=== PATIENT | male | born 1935 | race Caucasian/White ===

== ENCOUNTER → 2018-02-23 09:05 | Observation (INO) ==
[2018-02-21 16:45] LABS: Basophils % 0.7 % (0.1-2.0); Eosinophils # 0.4 K/mm3 (0.0-0.4); Hematocrit 42.1 % (42.0-52.0); Hemoglobin 13.5 g/dL (14.1-18.0); Lymphocytes # 1.6 K/mm3 (0.7-4.5); Mean Corpuscular Hemoglobin 30.5 pg (27.0-31.2); Mean Corpuscular Volume 95.3 fl (80-94); Mean Platelet Volume 7.2 fl (7.4-10.4); Monocytes # 0.5 K/mm3 (0.1-1.0); Monocytes % 7.8 % (1.7-9.3); Neutrophils # 3.6 K/mm3 (1.8-7.8); Neutrophils % 59.4 % (37.0-80.0); Platelet Count 178 K/mm3 (142-424); Red Blood Count 4.42 M/mm3 (4.60-6.20); Red Cell Distribution Width 13.9 % (11.5-17.5); White Blood Count 6.1 K/mm3 (4.8-10.8)
[2018-02-21 16:52] LABS: Anion Gap 11.8 mEq/L (5-15); Potassium 4.8 mmoL/L (3.5-5.1)
--- NOTE | 2018-02-21 17:56 | History & Physical Report ---
*Admission Date: 02/21/18 *Chief complaint: Cough and congestion *History of present illness: 82-year-old white male, suffers from emphysema, frequent exacerbations and frequent pneumonia, also from systolic and diastolic CHF, came to my office with 3 days of cough and congestion, crackles in both lung croft, very weak, admitted to hospital for IV antibiotics, further diagnostic testing, chest x- ray and IV fluids. [facility] History Medical History: Reports:: Congestive Heart Failure, Coronary Artery Disease, Hyperlipidemia, Hypertension, Myocardial Infarction Other Surgeries: Yes: Appendectomy, Skin Cancer Excision - *Social History Smoking Status: Former smoker Alcohol Intake: never Occupational Status: retired Household Members: spouse - Psychiatric History Expresses thoughts of harming self/others: None Suicide Plan Description: No Plan Review of Systems - Review of Systems Review of systems:: unable to obtain, other, pertinent systems reviewed and negative unless documented below Meds Home Medications Medication Instructions Recorded Confirmed Type aspirin 81 mg tablet,delayed 81 mg PO QDAY 11/26/17 02/21/18 History release atorvastatin 10 mg tablet 10 mg PO HS 11/26/17 02/21/18 History docusate sodium 100 mg capsule 100 mg PO BID 11/26/17 02/21/18 History memantine ER 28 mg-donepezil 10 mg 1 cap PO DAILY 11/26/17 02/21/18 History capsule sprinkle,ext.release 24 hr tamsulosin 0.4 mg capsule 0.4 mg PO QDAY 11/26/17 02/21/18 History warfarin 5 mg tablet 7.5 mg PO DAILY 11/26/17 02/21/18 History Carbidopa/Levodopa 1 tab PO TID 02/21/18 02/21/18 History [Carbidopa/Levodopa 25/100mg Tablet] Famotidine [Pepcid 20mg Tablet] 20 mg PO BID 02/21/18 02/21/18 History Furosemide [Furosemide 20mg Tab] 20 mg PO DAILY 02/21/18 02/21/18 History Insulin Lispro Protamin/Lispro 12 unit SQ AC 02/21/18 02/21/18 History [Humalog Mix 75/25 100 Units/mL 10mL Vial] Insulin Lispro Protamin/Lispro 18 unit SQ AC 02/21/18 02/21/18 History [Humalog Mix 75/25 100 Units/mL 10mL Vial] Mirabegron [Myrbetriq] 25 mg PO DAILY 02/21/18 02/21/18 History Sacubitril/Valsartan [Entresto 49 49 - 51 mg PO BID 02/21/18 02/21/18 History mg-51 mg Tablet] carBAMazepine [carBAMazepine 200mg 600 mg PO HS 02/21/18 02/21/18 History Tablet] lamoTRIgine [Lamotrigine] 100 mg PO BID 02/21/18 02/21/18 History Allergies Allergy/AdvReac Type Severity Reaction Status Date / Time cefazolin [CEFAZOLIN] Allergy Unknown Unverified 11/05/17 14:57 hydrocodone [HYDROCODONE] Allergy Unknown Unverified 11/05/17 14:57 lidocaine [LIDOCAINE] Allergy Unknown Unverified 11/05/17 14:57 Exam Vital signs and Labs for Last 24 Hours: Temp Pulse Resp BP Pulse Ox 97.7 F 74 16 113/60 94 L 02/21/18 16:00 02/21/18 16:00 02/21/18 16:00 02/21/18 16:00 02/21/18 17:01 Laboratory Results - last 24 hr 02/21/18 16:26: WBC 6.1, RBC 4.42 L, Hgb 13.5 L, Hct 42.1, MCV 95.3 H, MCH 30.5 , MCHC 32.0, RDW 13.9, Plt Count 178, MPV 7.2 L, Neut % (Auto) 59.4, Lymph % ( Auto) 26.0, [place] % (Auto) 7.8, Eos % (Auto) 6.0, Baso % (Auto) 0.7, Neut # (Auto ) 3.6, Lymph # (Auto) 1.6, [place] # (Auto) 0.5, Eos # (Auto) 0.4, Baso # (Auto) 0.0 02/21/18 16:26: Sodium 141, Potassium 4.8, Chloride 106, Carbon Dioxide 28, Anion Gap 11.8, BUN 21 H, Creatinine 1.16, Estimated Creat Clear 64, Estimated GFR 61, Est GFR ( Amer) 73, Glucose 97 02/21/18 16:26: Influenza Type A Ag Negative, Influenza Type B Ag Negative I & O for Last 24 hours: Intake & Output 02/19/18 02/20/18 02/21/18 02/22/18 11:59 11:59 11:59 11:59 Output Total 200 / 200 Balance -200 / -200 Weight 195 lb 5 oz Narrative: Patient is alert, somewhat demented. Responds to commands, very pleasant. Crackles in both middle lung croft, worse on the right, some crackles in the right lower field, usually has exam consistent with loose rhonchi. Moving air fairly well. Abdomen soft, minimal ankle edema. Heart rate regular. H&P: Result - Labs Labs: Short CBC 02/21/18 Range/Units 16:26 WBC 6.1 (4.8-10.8) K/mm3 Hgb 13.5 L (14.1-18.0) g/dL Hct 42.1 (42.0-52.0) % Plt Count 178 (142-424) K/mm3 BMP 02/21/18 16:26 Sodium 141 Potassium 4.8 Chloride 106 Carbon Dioxide 28 BUN 21 H Creatinine 1.16 Glucose 97 Assessment and Plan (1) Community acquired pneumonia Current visit: Yes Status: Acute Qualifiers: Laterality: left Category: Medical Code(s): J18.9 - Pneumonia, unspecified organism Multiple comorbidities including dementia, cardiac disease, depression and anxiety issues. Admit to hospital. Antibiotic therapy. Interestingly patient has an allergy to cefazolin but has taken ceftriaxone in the past. We will use this along with macrolide therapy. Chest x-ray pending. Labs today and tomorrow.
[2018-02-22 07:00] LABS: Anion Gap 9.8 mEq/L (5-15); Potassium 4.8 mmoL/L (3.5-5.1)
[2018-02-22 07:04] LABS: Lymphocytes # 1.4 K/mm3 (0.7-4.5); Mean Platelet Volume 7.2 fl (7.4-10.4); Monocytes # 0.5 K/mm3 (0.1-1.0)
[2018-02-22 07:32] LABS: Basophils % 0.7 % (0.1-2.0); Eosinophils # 0.4 K/mm3 (0.0-0.4); Eosinophils % 5.9 % (0.1-12.0); Hematocrit 39.4 % (42.0-52.0); Lymphocytes % 22.9 K/mm3 (10-50); Mean Corpuscular Hemoglobin 30.6 pg (27.0-31.2); Mean Corpuscular Volume 98.6 fl (80-94); Monocytes % 8.4 % (1.7-9.3); Neutrophils # 3.7 K/mm3 (1.8-7.8); Platelet Count 169 K/mm3 (142-424); Red Cell Distribution Width 13.8 % (11.5-17.5); White Blood Count 5.9 K/mm3 (4.8-10.8)
[2018-02-22 07:34] LABS: Hemoglobin 12.2 g/dL (14.1-18.0)
--- NOTE | 2018-02-22 08:31 | Progress Note ---
Internal Medicine - PN: Subj *Date: 02/22/18 *Time: 08:29 Interval history: Patient feels a little better although did not get much sleep last night. Minimal coughing, was able to get some sputum up. Exam Vital signs and Labs for Last 24 Hours: Temp Pulse Resp BP Pulse Ox 97.9 F 89 18 116/58 96 02/22/18 07:40 02/22/18 07:40 02/22/18 07:40 02/22/18 07:40 02/22/18 07:40 Laboratory Results - last 24 hr 02/21/18 16:26: WBC 6.1, RBC 4.42 L, Hgb 13.5 L, Hct 42.1, MCV 95.3 H, MCH 30.5 , MCHC 32.0, RDW 13.9, Plt Count 178, MPV 7.2 L, Neut % (Auto) 59.4, Lymph % ( Auto) 26.0, [place] % (Auto) 7.8, Eos % (Auto) 6.0, Baso % (Auto) 0.7, Neut # (Auto ) 3.6, Lymph # (Auto) 1.6, [place] # (Auto) 0.5, Eos # (Auto) 0.4, Baso # (Auto) 0.0 02/21/18 16:26: Sodium 141, Potassium 4.8, Chloride 106, Carbon Dioxide 28, Anion Gap 11.8, BUN 21 H, Creatinine 1.16, Estimated Creat Clear 64, Estimated GFR 61, Est GFR ( Amer) 73, Glucose 97 02/21/18 16:26: Influenza Type A Ag Negative, Influenza Type B Ag Negative, Mycoplasma pneumon IgM Non-reactive 02/22/18 06:05: WBC 5.9, RBC 4.00 L, Hgb 12.2 L, Hct 39.4 L, MCV 98.6 H, MCH 30.6, MCHC 31.0 L, RDW 13.8, Plt Count 169, MPV 7.2 L, Neut % (Auto) 62.0, Lymph % (Auto) 22.9, [place] % (Auto) 8.4, Eos % (Auto) 5.9, Baso % (Auto) 0.7, Neut # (Auto) 3.7, Lymph # (Auto) 1.4, [place] # (Auto) 0.5, Eos # (Auto) 0.4, Baso # (Auto) 0.0 02/22/18 06:05: Sodium 143, Potassium 4.8, Chloride 109 H, Carbon Dioxide 29, Anion Gap 9.8, BUN 20 H, Creatinine 1.27, Estimated Creat Clear 58, Estimated GFR 55 L, Est GFR ( Amer) 66, Glucose 176 H D I & O for Last 24 hours: Intake & Output 02/19/18 02/20/18 02/21/18 02/22/18 11:59 11:59 11:59 11:59 Intake Total 376 / 376 Output Total 1050 / 1050 Balance -674 / -674 Weight 195 lb 5 oz Microbiology Reports for the Last 24 Hours: Microbiology 02/21/18 18:30 Sputum - Expectorated Sputum Gram Stain - Final Narrative: Patient is alert, pleasant. Lungs are clearer, better air entry. Heart rate regular. Abdomen is soft. Assessment and Plan (1) Community acquired pneumonia Current visit: Yes Status: Acute Qualifiers: Laterality: left Category: Medical Code(s): J18.9 - Pneumonia, unspecified organism - Assessment and plan all Dx Assessment and Plan for all problems:: Overall patient improving, check sputum culture. Continue current therapy.
[2018-02-22 08:56] LABS: INR 2.38 (0.9-1.1); Prothrombin Time 25.9 seconds (9.4-11.8)
--- NOTE | 2018-02-22 10:37 | Pharmacy Consult Notes ---
[facility] Pharmacy VTE Monitoring - Patient Demographics Admission date: 02/21/18 Report Date: 02/22/18 Time: 10:36 Allergies/Adverse Reactions: Patient Allergies cefazolin [CEFAZOLIN] Allergy (Unknown, Verified 02/21/18 18:09) hydrocodone [HYDROCODONE] Allergy (Unknown, Verified 02/21/18 18:09) lidocaine [LIDOCAINE] Allergy (Unknown, Verified 02/21/18 18:09) Height: 1.8 m Weight: 88.592 kg Patient Problems: Current Active Problems Community acquired pneumonia (Acute) - VTE Risk Labs: VTE Related Lab Results Hgb 12.2 g/dL (14.1-18.0) L 02/22/18 06:05 Hct 39.4 % (42.0-52.0) L 02/22/18 06:05 Plt Count 169 K/mm3 (142-424) 02/22/18 06:05 PT 25.9 seconds (9.4-11.8) H 02/22/18 08:40 INR 2.38 (0.9-1.1) H 02/22/18 08:40 BUN 20 mg/dL (7-18) H 02/22/18 06:05 Creatinine 1.27 mg/dL (0.70-1.30) 02/22/18 06:05 Estimated Creat Clear 58 mL/min (0-300) 02/22/18 06:05 Was VTE Risk Assessment Performed: Yes - Prophylaxis VTE Prophylaxis Ordered?: Yes Types of VTE Prophylaxis: TEDS Knee High Location of Applied Device: Bilateral Lower Extremeties Pharmacologic Type: Warfarin (INR=2.38)
--- NOTE | 2018-02-23 08:12 | Discharge Summary ---
General - General Admission date: 02/21/18 Discharge date: 02/23/18 HPI HPI: 82-year-old white male, suffers from emphysema, frequent exacerbations and frequent pneumonia, also from systolic and diastolic CHF, came to my office with 3 days of cough and congestion, crackles in both lung croft, very weak, admitted to hospital for IV antibiotics, further diagnostic testing, chest x- ray and IV fluids. Hospital Course Hospital Course: Patient was admitted, placed on antibiotics for community-acquired pneumonia, chest x-ray showed infiltrate in the right chest. He improved very nicely in a stepwise fashion. Unfortunately was unable to cough up any sputum. This morning he was doing well, felt much better, was dressed this morning on morning rounds, eating a good breakfast. Exam has improved as noted below. He will be discharged home to finish up antibiotics and to follow-up in my office as scheduled. Objective Vital signs: Temp Pulse Resp BP Pulse Ox 98.5 F 98 H 18 101/78 97 02/23/18 07:36 02/23/18 07:36 02/23/18 07:36 02/23/18 07:36 02/23/18 07:36 Narrative: Patient's alert, talkative, little disoriented about the date today but otherwise much better. Appears well-hydrated, lungs are much clearer, only minimal rhonchi in the right middle and lower lung field, heart rate regular. Previously noted murmur unchanged, trace ankle edema at his baseline. Results Labs on day of discharge: Labs from last 24 hours 02/22/18 02/22/18 02/22/18 20:07 16:29 11:54 PT INR POC Glucose 270 H 207 H 202 H 02/22/18 08:40 PT 25.9 H INR 2.38 H POC Glucose Preliminary micro results at discharge 02/21/18 18:30 Sputum Culture - Preliminary Sputum - Expectorated Sputum 02/21/18 16:26 Blood Culture - Preliminary Blood NO GROWTH AFTER 24 HOURS 02/21/18 16:26 Blood Culture - Preliminary Blood NO GROWTH AFTER 24 HOURS DS: Diagnosis - Discharge Diagnosis (1) Community acquired pneumonia Status: Acute Discharge Plan - Patient Discharge Instructions ACTIVITY: Continue current activity DIET: continue same diet Patient Instructions: Coumadin Vitamin K/ Diet, Coumadin Therapy Booklet - Follow up Plan Follow up with: Tremaine Gómez MD [Primary Care Provider] - 02/28/18 11:00 am Disposition: Home, Self-Correction Medications: Home Medications Medication Instructions Recorded Confirmed Type aspirin 81 mg tablet,delayed 81 mg PO DAILY 11/26/17 02/22/18 History release atorvastatin 10 mg tablet 10 mg PO HS 11/26/17 02/21/18 History memantine ER 28 mg-donepezil 10 mg 1 cap PO DAILY 11/26/17 02/21/18 History capsule sprinkle,ext.release 24 hr tamsulosin 0.4 mg capsule 0.4 mg PO HS 11/26/17 02/22/18 History warfarin 5 mg tablet 7.5 mg PO SUTUWETHSA 11/26/17 02/22/18 History Carbidopa/Levodopa 1 tab PO TID 02/21/18 02/21/18 History [Carbidopa/Levodopa 25/100mg Tablet] Famotidine [Pepcid 20mg Tablet] 20 mg PO BID 02/21/18 02/21/18 History Furosemide [Furosemide 20mg Tab] 20 mg PO DAILY 02/21/18 02/21/18 History Insulin Lispro Protamin/Lispro 12 unit SQ DIRECTED 02/21/18 02/22/18 History [Humalog Mix 75/25 100 Units/mL 10mL Vial] Insulin Lispro Protamin/Lispro 18 unit SQ DIRECTED 02/21/18 02/22/18 History [Humalog Mix 75/25 100 Units/mL 10mL Vial] Mirabegron [Myrbetriq] 25 mg PO DAILY 02/21/18 02/21/18 History Sacubitril/Valsartan [Entresto 49 49 - 51 mg PO BID 02/21/18 02/21/18 History mg-51 mg Tablet] carBAMazepine [carBAMazepine 200mg 600 mg PO HS 02/21/18 02/21/18 History Tablet] lamoTRIgine [Lamotrigine] 100 mg PO BID 02/21/18 02/21/18 History Sennosides/Docusate Sodium 2 tab PO HS 02/22/18 02/22/18 History [Sennosides-Docusate Sodium Tab] Warfarin Sodium 10 mg PO MOFR 02/22/18 02/22/18 History Prescriptions/Medication Reconciliation: New Cefdinir [Omnicef 300mg Capsule] 300 mg PO BID #14 cap Continue aspirin 81 mg tablet,delayed release 81 mg PO DAILY atorvastatin 10 mg tablet 10 mg PO HS warfarin 5 mg tablet 7.5 mg PO SUTUWETHSA memantine ER 28 mg-donepezil 10 mg capsule sprinkle,ext.release 24 hr 1 cap PO DAILY tamsulosin 0.4 mg capsule 0.4 mg PO HS Insulin Lispro Protamin/Lispro [Humalog Mix 75/25 100 Units/mL 10mL Vial] 12 unit SQ DIRECTED Insulin Lispro Protamin/Lispro [Humalog Mix 75/25 100 Units/mL 10mL Vial] 18 unit SQ DIRECTED carBAMazepine [carBAMazepine 200mg Tablet] 600 mg PO HS Furosemide [Furosemide 20mg Tab] 20 mg PO DAILY Famotidine [Pepcid 20mg Tablet] 20 mg PO BID Carbidopa/Levodopa [Carbidopa/Levodopa 25/100mg Tablet] 1 tab PO TID Warfarin Sodium 10 mg PO MOFR Sennosides/Docusate Sodium [Sennosides-Docusate Sodium Tab] 2 tab PO HS Sacubitril/Valsartan [Entresto 49 mg-51 mg Tablet] 49 - 51 mg PO BID lamoTRIgine [Lamotrigine] 100 mg PO BID Mirabegron [Myrbetriq] 25 mg PO DAILY
== END | disposition home or self-care (01) ==
LOC: 2ND
PROVIDERS: ADMIT Internal Medicine Adolescent Medicine; ATTEND Internal Medicine Adolescent Medicine

== ENCOUNTER 2018-04-08 12:51 | Outpatient (RCR) | payer MEDICARE, BC, SELFPAY ==
--- NOTE | 2018-04-08 14:33 | HMH.PTOPEV ---
PT Outpatient Evaluation Rehab PT Outpatient Evaluation Start: 04/08/18 12:56 Freq: Status: Active Protocol: Document 04/08/18 14:19 ROXANNE (Rec: 04/08/18 14:31 PHORNE [id number]) Electronically Signed By Eriberto Ballesteros, PT 04/08/18 14:19 Outpatient Therapy Subjective History Subjective History Pt presents with c/o fatigue with any exertion, especially walking x ~ 1-2 mos. He states , I get tired just trying to walk up my driveway and I have to stop and sit down. Pt is ~ 1 mo S/P recent hospital admission due to CAP. He also report having a hx of chronic low back pain intermittently. He denies numbness or tingling currently and reports only 1 fall over the past 6 mos. He has PMH of CHF, CAD, [place], pacemaker, Emphysema, Parkinson's disease, dementia, and DM-II. Chief Complaint Pain Symptom Type Ache Symptoms Relieved By Rest/Positioning Symptoms Aggravated By Walking Prior Functional Limitations Reaching Lifting Housework Recreation Activity Walking Balance Current Functional Limitations Reaching Lifting Housework Recreation Activity Walking Balance Symptom Description Constant but Variable Level of pain today (0-10) 0 Balance Eval Hx of Falls Hx Falls Yes Number in last 6 months 1 Timed Up and Go Test 1. Is the Timed Up and Go test result > yes or = to 12 seconds? [place] Feet Together/Eyes open/Stable Surface fail Feet Together/Eyes Closed/Stable Surface fail Feet Together/Eyes open/Unstable Surface fail Feet Together/Eyes Closed/Unstable fail Surface Outpatient Therapy Assessment Impairments Problems/Impairmments Impaired Endurance Impaired Walking Impaired Self Care/Self Management Prognosis Rehab Potential Fair Clinical Impression Consistent with Dec endurance, mult co- morbidities
== END 2018-04-08 12:52 | disposition home or self-care (01) ==
LOC: PT 12:51
PROVIDERS: Family Provider Internal Medicine Adolescent Medicine; PCP Internal Medicine Adolescent Medicine; Visit Provider Internal Medicine Adolescent Medicine
DX: G20 Parkinson's disease (principal); R26.9 Unspecified abnormalities of gait and mobility
CPT/HCPCS: 97163

== ENCOUNTER 2018-09-10 15:07 | Observation (INO) ==
[2018-09-10 16:01] LABS: Basophils % 0.6 % (0.1-2.0); Eosinophils # 0.2 K/mm3 (0.0-0.4); Eosinophils % 3.2 % (0.1-12.0); Hematocrit 44.3 % (42.0-52.0); Hemoglobin 13.7 g/dL (14.1-18.0); Lymphocytes # 1.8 K/mm3 (0.7-4.5); Lymphocytes % 27.8 K/mm3 (10-50); Mean Corpuscular HGB Conc 30.8 g/dL (31.8-35.4); Mean Corpuscular Hemoglobin 30.2 pg (27.0-31.2); Mean Corpuscular Volume 97.8 fl (80-94); Mean Platelet Volume 7.2 fl (7.4-10.4); Monocytes # 0.5 K/mm3 (0.1-1.0); Monocytes % 7.9 % (1.7-9.3); Neutrophils # 3.9 K/mm3 (1.8-7.8); Neutrophils % 60.5 % (37.0-80.0); Platelet Count 175 K/mm3 (142-424); Red Blood Count 4.53 M/mm3 (4.60-6.20); Red Cell Distribution Width 14.5 % (11.5-17.5); White Blood Count 6.4 K/mm3 (4.8-10.8)
[2018-09-10 16:15] LABS: Prothrombin Time 42.8 seconds (9.4-11.8)
[2018-09-10 16:16] LABS: Alanine Aminotransferase 8 U/L (12-78); Albumin/Globulin Ratio 0.7 (1.1-1.8); Alkaline Phosphatase 99 U/L (46-116); Anion Gap 10.9 mEq/L (5-15); Aspartate Amino Transferase 13 U/L (15-37); Bilirubin,Total 0.3 mg/dL (0.2-1.0); Blood Urea Nitrogen 26 mg/dL (7-18); Calcium 8.6 mg/dL (8.5-10.1); Carbon Dioxide 31 mmol/L (21.0-32.0); Chloride 108 mmol/L (98-107); Globulin 4.1 gm/dl (1.3-3.2); Glucose 109 mg/dL (74-106); Potassium 4.9 mmoL/L (3.5-5.1); Sodium 145 mmol/L (136-145); Total Protein,Serum 7.1 gm/dL (6.4-8.2)
[2018-09-10 16:20] LABS: INR 4.34 (0.9-1.1)
--- NOTE | 2018-09-11 07:51 | History & Physical Report ---
*Admission Date: 09/10/18 *Chief complaint: Weakness/cellulitis right leg *History of present illness: 83-year-old white male with significant past history of CHF, coronary disease, dementia, paroxysmal atrial fibrillation and recurrent pneumonias who presented to my office with his with a chief complaint of status confusion, right leg swelling and pain and worsening ambulatory status. In the office he was found to be afflicted with crackles in both lower lung croft, cellulitis in the right leg, admitted to hospital for further diagnostic testing, the institution of antibiotics and evaluation for further therapies. [facility] History I have reviewed the patient's past medical history: Yes Medical History: Reports:: Congestive Heart Failure, Coronary Artery Disease, Diabetes Mellitus Type 2, Hyperlipidemia, Hypertension, Myocardial Infarction Denies:: Cancer Other Surgeries: Yes: Appendectomy, Cholecystectomy, Skin Cancer Excision - *Social History Educational Level: Completed Grade School Smoking Status: Former smoker Alcohol Intake: never Occupational Status: retired Household Members: spouse - Psychiatric History Expresses thoughts of harming self/others: None Suicide Plan Description: No Plan Review of Systems - Review of Systems Review of systems:: pertinent systems reviewed and negative unless documented below - Constitutional Reports fatigue, Reports lack of energy, Denies anorexia, Denies fever(s) - Eyes Denies blurry vision, Denies change in vision - ENT Reports poor balance, Reports dizziness, Denies difficulty swallowing - *Cardiovascular Denies chest pain, Denies chest pain at rest, Denies shortness of breath - *Respiratory Denies change in phlegm color, Denies chest congestion - *Gastrointestinal Denies abdominal pain, Denies coffee ground vomit - *Genitourinary Denies difficulty urinating - *Musculoskeletal Reports abnormal walking, Reports joint swelling Meds Home Medications Medication Instructions Recorded Confirmed Type aspirin 81 mg tablet,delayed 81 mg PO DAILY 11/26/17 09/10/18 History release atorvastatin 10 mg tablet 40 mg PO HS 11/26/17 09/10/18 History warfarin 5 mg tablet 7.5 mg PO SUTUWETHSA 11/26/17 09/10/18 History Carbidopa/Levodopa 1 tab PO TID 02/21/18 09/10/18 History [Carbidopa/Levodopa 25/100mg Tablet] Famotidine [Pepcid 20mg Tablet] 20 mg PO BID 02/21/18 09/10/18 History Furosemide [Furosemide 20mg Tab] 20 mg PO DAILY 02/21/18 09/10/18 History Insulin Lispro Protamin/Lispro 12 unit SQ DIRECTED 02/21/18 09/10/18 History [Humalog Mix 75/25 100 Units/mL 10mL Vial] Insulin Lispro Protamin/Lispro 15 unit SQ HS 02/21/18 09/10/18 History [Humalog Mix 75/25 100 Units/mL 10mL Vial] Sacubitril/Valsartan [Entresto 49 49 - 51 mg PO BID 02/21/18 09/10/18 History mg-51 mg Tablet] carBAMazepine [carBAMazepine 200mg 600 mg PO HS 02/21/18 09/10/18 History Tablet] lamoTRIgine [Lamotrigine] 100 mg PO BID 02/21/18 09/10/18 History Sennosides/Docusate Sodium 2 tab PO HS 02/22/18 09/10/18 History [Sennosides-Docusate Sodium Tab] Warfarin Sodium 10 mg PO MOFR 02/22/18 09/10/18 History Glimepiride [Amaryl 2mg tablet] 2 mg PO DAILY 09/10/18 09/10/18 History Ipratropium/Albuterol Sulfate 3 ml IH Q6HP PRN 09/10/18 09/10/18 History [Duoneb 3mL neb] Memantine HCl/Donepezil HCl 1 each PO DAILY 09/10/18 09/10/18 History [Namzaric 28 mg-10 mg Capsule] Sennosides [Senna Lax] 8.6 mg PO HS 09/10/18 09/10/18 History Allergies Allergy/AdvReac Type Severity Reaction Status Date / Time cefazolin [CEFAZOLIN] Allergy Unknown Verified 06/17/18 09:09 hydrocodone [HYDROCODONE] Allergy Unknown Verified 06/17/18 09:09 lidocaine [LIDOCAINE] Allergy Unknown Verified 06/17/18 09:09 Exam Vital signs and Labs for Last 24 Hours: Temp Pulse Resp BP Pulse Ox 97.7 F 69 14 119/77 93 L 09/11/18 04:00 09/11/18 07:08 09/11/18 04:00 09/11/18 04:00 09/11/18 07:08 Laboratory Results - last 24 hr 09/10/18 15:45: WBC 6.4, RBC 4.53 L, Hgb 13.7 L, Hct 44.3, MCV 97.8 H, MCH 30.2, MCHC 30.8 L, RDW 14.5, Plt Count 175, MPV 7.2 L, Neut % (Auto) 60.5, Lymph % (Auto) 27.8, [place] % (Auto) 7.9, Eos % (Auto) 3.2, Baso % (Auto) 0.6, Neut # (Auto) 3.9, Lymph # (Auto) 1.8, [place] # (Auto) 0.5, Eos # (Auto) 0.2, Baso # (Auto) 0.0 09/10/18 15:45: PT 42.8 H, INR 4.34 H 09/10/18 15:45: Sodium 145, Potassium 4.9, Chloride 108 H, Carbon Dioxide 31, Anion Gap 10.9, BUN 26 H, Creatinine 1.43 H, Estimated GFR 47 L, Est GFR ( Amer) 57 L, Glucose 109 H, Calcium 8.6, Magnesium 2.2, Total Bilirubin 0.3, AST 13 L, ALT 8 L, Alkaline Phosphatase 99, Total Protein 7.1, Albumin 3.0 L, Globulin 4.1 H, Albumin/Globulin Ratio 0.7 L 09/10/18 15:45: Troponin I < 0.02 I & O for Last 24 hours: Intake & Output 09/08/18 09/09/18 09/10/18 09/11/18 11:59 11:59 11:59 11:59 Output Total 650 / 650 Balance -650 / -650 Weight 195 lb 5.273 oz Narrative: In the office patient was found to be slightly confused, especially to place and time. Oropharynx dry but otherwise clear, no JVD. Lungs had crackles and rhonchi in both lower lung croft about [address] Heart rate irregular. Previously noted flow murmur. Abdomen soft and nontender. Left leg fairly normal, with diminished pulses as previously. Right leg with cellulitis and a significant 5 cm bullae on right sosa surrounded by cellulitis/erysipelas area. Apparently he had struck this leg against a piece of furniture a couple of days ago. Able to bear weight but is very weak, ataxic. Assessment and Plan (1) Cellulitis, leg Current visit: Yes Status: Acute Category: Medical Code(s): L03.119 - Cellulitis of unspecified part of limb Admit to hospital. Elevation, topical mupirocin will be started. IV antibiotics. (2) Ataxia Current visit: Yes Status: Acute Category: Medical Code(s): R27.0 - Ataxia, unspecified Check labs, rehydration gently and PT evaluation (3) Community acquired pneumonia Current visit: No Status: Acute Qualifiers: Laterality: left Category: Medical Code(s): J18.9 - Pneumonia, unspecified organism Check chest x-ray, community acquired pneumonia protocol.
[2018-09-11 10:38] LABS: INR 2.46 (0.9-1.1); Prothrombin Time 24.7 seconds (9.4-11.8)
[2018-09-12 07:26] LABS: Basophils % 0.5 % (0.1-2.0); Eosinophils # 0.3 K/mm3 (0.0-0.4); Eosinophils % 3.6 % (0.1-12.0); Hematocrit 40.2 % (42.0-52.0); Hemoglobin 12.8 g/dL (14.1-18.0); Lymphocytes # 2.2 K/mm3 (0.7-4.5); Lymphocytes % 30.3 K/mm3 (10-50); Mean Corpuscular HGB Conc 31.7 g/dL (31.8-35.4); Mean Corpuscular Volume 97.8 fl (80-94); Mean Platelet Volume 6.9 fl (7.4-10.4); Monocytes # 0.5 K/mm3 (0.1-1.0); Monocytes % 6.9 % (1.7-9.3); Neutrophils # 4.3 K/mm3 (1.8-7.8); Neutrophils % 58.8 % (37.0-80.0); Platelet Count 150 K/mm3 (142-424); Red Blood Count 4.12 M/mm3 (4.60-6.20); Red Cell Distribution Width 14.5 % (11.5-17.5); White Blood Count 7.3 K/mm3 (4.8-10.8)
[2018-09-12 07:29] LABS: INR 1.91 (0.9-1.1); Prothrombin Time 19.3 seconds (9.4-11.8)
[2018-09-12 07:45] LABS: Albumin Level 2.9 gm/dL (3.4-5.0); Albumin/Globulin Ratio 0.7 (1.1-1.8); Anion Gap 10.2 mEq/L (5-15); Bilirubin,Total 0.5 mg/dL (0.2-1.0); Calcium 8.9 mg/dL (8.5-10.1); Globulin 3.9 gm/dl (1.3-3.2); Potassium 5.2 mmoL/L (3.5-5.1); Total Protein,Serum 6.8 gm/dL (6.4-8.2)
--- NOTE | 2018-09-12 07:58 | Discharge Summary ---
General - General Admission date:: 09/10/18 Discharge date: 09/12/18 HPI HPI: 83-year-old white male with significant past history of CHF, coronary disease, dementia, paroxysmal atrial fibrillation and recurrent pneumonias who presented to my office with his with a chief complaint of status confusion, right leg swelling and pain and worsening ambulatory status. In the office he was found to be afflicted with crackles in both lower lung croft, cellulitis in the right leg, admitted to hospital for further diagnostic testing, the institution of antibiotics and evaluation for further therapies. Hospital Course Hospital Course: Admitted for medical management of community-acquired pneumonia and lower extremity cellulitis. Interval improvement after starting IV antibiotics. Transition to oral antibiotics. Tolerated oral intake. Hemodynamically stable on room air. Afebrile. Transition to p.o. antibiotics to complete full course of treatment. Follow-up in clinic as scheduled Objective Vital signs: Temp Pulse Resp BP Pulse Ox 98.0 F 76 14 114/91 H 95 09/12/18 04:00 09/12/18 06:13 09/12/18 04:00 09/12/18 04:00 09/12/18 06:13 - *Routine HEENT Exam Head: Present: normocephalic, atraumatic Eye: Present: EOMI, PERRL ENT: Present: mucous membranes moist - *Routine Neck Exam Present: supple. Absent: JVD - *Routine Respiratory Exam Present: prolonged expiratory phase, crackles. Absent: accessory muscle use, wheezes - *Routine Cardiovascular Exam Present: RRR, Normal S1, Normal S2 - *Routine Abdominal Exam Present: soft, normoactive bowel sounds - *Routine Rectal Exam Patient deferred: visual exam - *Routine Exam Patient deferred: penile exam - *Routine Extremities Exam Present: edema. Absent: cyanosis Comments: Interval improvement in lower extremity erythema - *Routine Skin Exam Present: intact, erythema, lesions. Absent: cyanosis - *Routine Neurological Exam Present: alert, oriented X3, CN II-XII intact Results Labs on day of discharge: Labs from last 24 hours 09/12/18 09/12/18 09/12/18 06:58 06:58 06:58 WBC 7.3 RBC 4.12 L Hgb 12.8 L Hct 40.2 L MCV 97.8 H MCH 31.0 MCHC 31.7 L RDW 14.5 Plt Count 150 MPV 6.9 L Neut % (Auto) 58.8 Lymph % (Auto) 30.3 [place] % (Auto) 6.9 Eos % (Auto) 3.6 Baso % (Auto) 0.5 Neut # (Auto) 4.3 Lymph # (Auto) 2.2 [place] # (Auto) 0.5 Eos # (Auto) 0.3 Baso # (Auto) 0.0 PT 19.3 H INR 1.91 H Sodium 139 Potassium 5.2 H Chloride 106 Carbon Dioxide 28 Anion Gap 10.2 BUN 27 H Creatinine 1.25 Estimated Creat Clear 58 Estimated GFR 55 L Est GFR ( Amer) 67 Glucose 195 H Calcium 8.9 Total Bilirubin 0.5 AST 11 L ALT 9 L Alkaline Phosphatase 89 Total Protein 6.8 Albumin 2.9 L Globulin 3.9 H Albumin/Globulin Ratio 0.7 L 09/11/18 10:13 WBC RBC Hgb Hct MCV MCH MCHC RDW Plt Count MPV Neut % (Auto) Lymph % (Auto) [place] % (Auto) Eos % (Auto) Baso % (Auto) Neut # (Auto) Lymph # (Auto) [place] # (Auto) Eos # (Auto) Baso # (Auto) PT 24.7 H INR 2.46 H Sodium Potassium Chloride Carbon Dioxide Anion Gap BUN Creatinine Estimated Creat Clear Estimated GFR Est GFR ( Amer) Glucose Calcium Total Bilirubin AST ALT Alkaline Phosphatase Total Protein Albumin Globulin Albumin/Globulin Ratio DS: Diagnosis - Discharge Diagnosis (1) Cellulitis, leg Status: Acute (2) Ataxia Status: Acute (3) Community acquired pneumonia Status: Acute Discharge Plan - Patient Discharge Instructions Patient Instructions: Cellulitis, Coumadin Vitamin K/ Diet, Coumadin Therapy Booklet - Follow up Plan Follow up with: Tremaine Gómez MD [Primary Care Provider] - 1 week Disposition: Home, Self-Half-Way Medications: Home Medications Medication Instructions Recorded Confirmed Type aspirin 81 mg tablet,delayed 81 mg PO DAILY 11/26/17 09/10/18 History release warfarin 5 mg tablet 7.5 mg PO SUTUWETHSA 11/26/17 09/10/18 History Carbidopa/Levodopa 1 tab PO TID 02/21/18 09/10/18 History [Carbidopa/Levodopa 25/100mg Tablet] Famotidine [Pepcid 20mg Tablet] 20 mg PO BID 02/21/18 09/10/18 History Furosemide [Furosemide 20mg Tab] 20 mg PO DAILY 02/21/18 09/10/18 History Insulin Lispro Protamin/Lispro 12 unit SQ DAILY 02/21/18 09/11/18 History [Humalog Mix 75/25 100 Units/mL 10mL Vial] Insulin Lispro Protamin/Lispro 15 unit SQ HS 02/21/18 09/10/18 History [Humalog Mix 75/25 100 Units/mL 10mL Vial] Sacubitril/Valsartan [Entresto 49 1 each PO BID 02/21/18 09/11/18 History mg-51 mg Tablet] carBAMazepine [carBAMazepine 200mg 600 mg PO HS 02/21/18 09/10/18 History Tablet] lamoTRIgine [Lamotrigine] 100 mg PO BID 02/21/18 09/10/18 History Sennosides/Docusate Sodium 2 tab PO HS 02/22/18 09/10/18 History [Sennosides-Docusate Sodium Tab] Warfarin Sodium 10 mg PO MOFR 02/22/18 09/10/18 History Glimepiride [Amaryl 2mg tablet] 2 mg PO DAILY 09/10/18 09/10/18 History Ipratropium/Albuterol Sulfate 3 ml IH Q6HP PRN 09/10/18 09/10/18 History [Duoneb 3mL neb] Memantine HCl/Donepezil HCl 1 each PO DAILY 09/10/18 09/10/18 History [Namzaric 28 mg-10 mg Capsule] Sennosides [Senna Lax] 17.2 mg PO HS 09/10/18 09/11/18 History Atorvastatin Calcium [Atorvastatin 40 mg PO HS 09/11/18 09/11/18 History 40mg Tab] Prescriptions/Medication Reconciliation: New Mupirocin [Bactroban 2% Ointment 22gm tube] 1 applic TP TID 10 Days #1 tube Continue aspirin 81 mg tablet,delayed release 81 mg PO DAILY warfarin 5 mg tablet 7.5 mg PO SUTUWETHSA Insulin Lispro Protamin/Lispro [Humalog Mix 75/25 100 Units/mL 10mL Vial] 12 unit SQ DAILY Insulin Lispro Protamin/Lispro [Humalog Mix 75/25 100 Units/mL 10mL Vial] 15 unit SQ HS carBAMazepine [carBAMazepine 200mg Tablet] 600 mg PO HS Furosemide [Furosemide 20mg Tab] 20 mg PO DAILY Famotidine [Pepcid 20mg Tablet] 20 mg PO BID Carbidopa/Levodopa [Carbidopa/Levodopa 25/100mg Tablet] 1 tab PO TID Warfarin Sodium 10 mg PO MOFR Sennosides/Docusate Sodium [Sennosides-Docusate Sodium Tab] 2 tab PO HS Sennosides [Senna Lax] 17.2 mg PO HS Memantine HCl/Donepezil HCl [Namzaric 28 mg-10 mg Capsule] 1 each PO DAILY Glimepiride [Amaryl 2mg tablet] 2 mg PO DAILY Ipratropium/Albuterol Sulfate [Duoneb 3mL neb] 3 ml IH Q6HP PRN PRN Reason: copd Sacubitril/Valsartan [Entresto 49 mg-51 mg Tablet] 1 each PO BID lamoTRIgine [Lamotrigine] 100 mg PO BID Atorvastatin Calcium [Atorvastatin 40mg Tab] 40 mg PO HS
== END 2018-09-12 12:25 | disposition home or self-care (01) ==
LOC: 2ND
PROVIDERS: ADMIT Internal Medicine Adolescent Medicine; ATTEND Internal Medicine Adolescent Medicine

== ENCOUNTER 2018-11-06 11:39 | Inpatient (IN) ==
--- NOTE | 2018-11-06 12:02 | Emergency Department Note ---
ED Disposition Clinical Impression: Pneumonia, Dehydration, Hypoxia, Hypotension Disposition: Admitted as Observation Condition on Discharge: Fair Time of Disposition: 19:40 - Critical Care Critical Care Time: No Attestation: On 11/06/18, the high probability of a clinically significant, sudden or life threatening deterioration of the following system(s) required my full and direct attention, intervention and personal management. The time I documented below is in addition to time spent performing reported procedures but includes the following listed in this critical care notation. Medical Decision Making - Medical Records Medical records reviewed: Yes: I reviewed the patient's medical records. - Obie Inquiry Pt receiving controlled substance: No Obie was queried for this patient: No Vital Signs: 11/06/18 11:49 11/06/18 11:58 11/06/18 12:15 Temperature 97.9 F Temperature Source Oral Pulse Rate 90 Pulse Rate [Right Brachial] 82 82 Respiratory Rate 25 H 26 H Blood Pressure [Right Arm] 124/78 76/49 L Blood Pressure Mean [Right Arm] 93 58 Blood Pressure Source [Right Arm] Automatic Cuff Automatic Cuff Blood Pressure Position [Right Arm] Sitting Sitting 02 Sat by Pulse Oximetry 92 L 90 L Oxygen Delivery Method Room Air Room Air Oxygen Flow Rate (LPM) 11/06/18 12:30 11/06/18 13:03 11/06/18 14:00 Temperature Temperature Source Pulse Rate Pulse Rate [Right Brachial] 73 85 96 H Respiratory Rate 20 24 Blood Pressure [Right Arm] 96/45 L 89/49 L 90/50 L Blood Pressure Mean [Right Arm] 62 62 63 Blood Pressure Source [Right Arm] Automatic Cuff Automatic Cuff Automatic Cuff Blood Pressure Position [Right Arm] Sitting Sitting Sitting 02 Sat by Pulse Oximetry 97 97 98 Oxygen Delivery Method Aerosol Mask Nasal Cannula Oxygen Flow Rate (LPM) 2 11/06/18 15:24 Temperature Temperature Source Pulse Rate Pulse Rate [Right Brachial] 94 H Respiratory Rate Blood Pressure [Right Arm] 93/52 L Blood Pressure Mean [Right Arm] 65 Blood Pressure Source [Right Arm] Automatic Cuff Blood Pressure Position [Right Arm] Sitting 02 Sat by Pulse Oximetry 98 Oxygen Delivery Method Oxygen Flow Rate (LPM) - Lab Data Lab results reviewed: Yes: I reviewed the patient's lab results. Lab Results 11/06/18 12:00: WBC 10.2, RBC 3.91 L, Hgb 12.2 L, Hct 38.7 L, MCV 99.0 H, MCH 31.1, MCHC 31.4 L, RDW 14.2, Plt Count 170, MPV 7.7, Neut % (Auto) 73.5, Lymph % (Auto) 17.6, [place] % (Auto) 7.4, Eos % (Auto) 1.2, Baso % (Auto) 0.3, Neut # (A uto) 7.5, Lymph # (Auto) 1.8, [place] # (Auto) 0.8, Eos # (Auto) 0.1, Baso # (Auto) 0.0 11/06/18 12:00: PT 36.5 H, INR 3.68 H 11/06/18 12:00: Sodium 140, Potassium 4.4, Chloride 105, Carbon Dioxide 27, Anion Gap 12.4, BUN 41 H, Creatinine 1.82 H, Estimated Creat Clear 40, Estimated GFR 36 L, Est GFR ( Amer) 43 L, Glucose 152 H, Calcium 8.6, Total Bilirubin 0.5, AST 8 L, ALT 6 L, Alkaline Phosphatase 76, Total Protein 7.1, Albumin 2.8 L, Globulin 4.3 H, Albumin/Globulin Ratio 0.7 L 11/06/18 12:00: Lactate 1.3 11/06/18 12:00: B-Natriuretic Peptide 705 H 11/06/18 12:00: Total Creatine Kinase 79, CK-MB (CK-2) 1.3, CK-MB (CK-2) Rel Index 1.6, Troponin I < 0.02 11/06/18 12:08: Influenza Type A Ag Negative, Influenza Type B Ag Negative Result diagrams: 11/07/18 05:57 11/07/18 05:57 Orders (Tests/Meds): ED MEDICATIONS Generic Name Dose Route Start Last Admin Trade Name Freq PRN Reason Stop Dose Admin Acetaminophen 650 mg 11/06/18 17:23 Acetaminophen 325mg Tab PO 12/06/18 17:22 Q4HP PRN As Needed for Fever or Pain Acetylcysteine 2 ml 11/06/18 21:00 11/07/18 06:35 Mucomyst 20% 4ml Vial INHALATION 11/09/18 20:59 Not Given TID CARLOS Albuterol/Ipratropium 3 ml 11/07/18 12:00 Duoneb 3ml Neb IH 12/07/18 11:59 Q6HP PRN Shortness Of Breath Docusate Sodium 100 mg 11/07/18 09:00 11/07/18 09:33 Docusate Sodium 100mg Cap PO 12/07/18 08:59 100 mg DAILY CARLOS Administration Levofloxacin/Dextrose 500 mg in 100 mls @ 100 mls/hr 11/07/18 11:00 11/07/18 11:02 Levaquin 500mg/100ml Premix IV 11/21/18 10:59 100 mls/hr Q24H CARLOS Administration Protocol Pt's Own Med 81 mg 11/07/18 09:00 11/07/18 09:31 Aspirin Ec 81 Mg PO 12/07/18 08:59 81 mg DAILY CARLOS Administration Pt's Own Med 40 mg 11/06/18 21:00 11/06/18 20:19 Atorvastatin Calcium PO 12/06/18 20:59 40 mg 40mg Tab HS CARLOS Administration Pt's Own Med 600 mg 11/06/18 21:00 11/06/18 20:21 Carbamazepine 200mg PO 12/06/18 20:59 600 mg Tablet HS CARLOS Administration Pt's Own Med 1 tab 11/06/18 21:00 11/07/18 12:46 Carbidopa/Levodopa PO 12/06/18 20:59 1 tab 25/100mg Tablet TID CARLOS Administration Pt's Own Med 20 mg 11/06/18 21:00 11/07/18 09:32 Famotidine [Pepcid] PO 12/06/18 20:59 20 mg 20 Mg BID CARLOS Administration Pt's Own Med 20 mg 11/07/18 09:00 11/07/18 09:32 Furosemide 20 Mg Tab PO 12/07/18 08:59 20 mg BID CARLOS Administration Pt's Own Med 2 mg 11/07/18 09:00 11/07/18 09:34 Glimepiride [Amaryl] PO 12/07/18 08:59 2 mg 2mg Tablet DAILY CARLOS Administration Pt's Own Med 100 mg 11/06/18 21:00 11/07/18 09:34 Lamotrigine 100 Mg PO 12/06/18 20:59 100 mg Tab BID CARLOS Administration Pt's Own Med 1 each 11/06/18 21:00 11/07/18 09:33 Sacubitril/Valsartan PO 12/06/18 20:59 1 each [Entresto] 49 Mg-51 BID CARLOS Administration Mg Tablet Pt's Own Med 10 mg 11/07/18 11:00 Warfarin Sodium 5 Mg PO 12/07/18 10:59 Tab MoFr@1100 [facility] Pt's Own Med 1 each 11/07/18 09:00 11/07/18 09:32 Memantine Hcl/ PO 12/07/18 08:59 1 each Donepezil Hcl [ DAILY CARLOS Administration Namzaric] 28 Mg-10 Mg Capsule Pt's Own Med 7.5 mg 11/07/18 08:39 Warfarin Sodium [ PO 12/06/18 17:22 Coumadin] 5 Mg [id number]@1100 [facility] Pt's Own Med 0 mg 11/07/18 08:45 Sennosides [Senna- PO 12/06/18 20:59 Lax] Tab HS [facility] Pt's Own Med 12 unit 11/07/18 09:00 Insulin Lispro SQ 12/07/18 08:59 Protamin/Lispro [ 0715 [facility] Humalog Mix] 75/25 Pt's Own Med 18 unit 11/07/18 08:51 Insulin Lispro SQ 12/06/18 20:59 Protamin/Lispro [ 1645 [facility] Humalog Mix] 75/25 Pt's Own Med 2 each 11/07/18 09:00 11/07/18 09:33 Escitalopram 5 Mg PO 12/07/18 08:59 2 each DAILY CARLOS Administration Ondansetron HCl 4 mg 11/06/18 17:23 Zofran 4mg/2ml Vial IV 12/06/18 17:22 Q8HP PRN Nausea Sodium Chloride 3 ml 11/06/18 17:23 Sodium Chloride 3% 15ml Neb IH 12/06/18 11:54 ONCE PRN INDUCE SPUTUM COLLECTION Discontinued Medications Generic Name Dose Route Start Last Admin Trade Name Freq PRN Reason Stop Dose Admin Acetylcysteine 2 ml 11/06/18 15:31 11/06/18 23:17 Mucomyst 20% 4ml Vial INHALATION 11/06/18 15:32 Not Given ONCE ONE Albuterol/Ipratropium 3 ml 11/06/18 11:57 11/06/18 11:58 Duoneb 3ml Neb 11/06/18 11:58 3 ml ONCE ONE Administration Albuterol/Ipratropium 3 ml 11/06/18 15:32 11/06/18 23:17 Duoneb 3ml Neb 11/06/18 15:33 Not Given ONCE ONE Albuterol/Ipratropium 3 ml 11/06/18 17:23 11/06/18 19:55 Duoneb 3ml Neb 11/06/18 17:24 3 ml ONCE ONE Administration Dexamethasone Sodium Phosphate 10 mg 11/06/18 12:25 11/06/18 12:29 Decadron 4mg/Ml 1ml Vial IV 11/06/18 12:26 10 mg ONCE ONE Administration Levofloxacin/Dextrose 750 mg in 150 mls @ 100 mls/hr 11/06/18 12:30 11/06/18 12:29 Levofloxacin 750mg/150ml Premix IV 11/06/18 13:59 100 mls/hr ONCE ONE Administration Protocol Lactated Ringer's 1,000 mls @ 999 mls/hr 11/06/18 12:45 11/06/18 12:15 Lactated Ringer's 1000 Ml Bag IV 11/06/18 13:45 999 mls/hr .Q1H1M CARLOS Administration Lactated Ringer's 2,680 mls @ 1,340 mls/hr 11/06/18 12:38 11/06/18 12:15 Lactated Ringer's 1000 Ml Bag 30 ml/kg infuse over 2 hr (2680 ml) 11/06/18 14:37 1,340 mls/hr IV Administration .Q2H ONE Insulin Human Lispro 10 unit 11/06/18 22:30 11/06/18 22:05 Humalog 100 Units/Ml 3ml Vial (Ssi) SQ 11/06/18 22:31 10 unit ONCE ONE Administration Non-Formulary Medication 81 mg 11/07/18 09:00 Aspirin [Low Dose Aspirin Ec] PO 12/07/18 08:59 DAILY CARLOS Non-Formulary Medication 40 mg 11/06/18 21:00 Atorvastatin Calcium [Atorvastatin 40mg Tab] PO 12/06/18 20:59 HS CARLOS Non-Formulary Medication 600 mg 11/06/18 21:00 Carbamazepine [Carbamazepine 200mg Tablet] PO 12/06/18 20:59 HS CARLOS Non-Formulary Medication 1 tab 11/06/18 21:00 Carbidopa/Levodopa [Carbidopa/Levodopa 25/100mg Tablet] PO 12/06/18 20:59 TID CARLOS Non-Formulary Medication 20 mg 11/06/18 21:00 Famotidine [Pepcid 20mg Tablet] PO 12/06/18 20:59 BID CARLOS Non-Formulary Medication 20 mg 11/07/18 09:00 Furosemide [Furosemide 20mg Tab] PO 12/07/18 08:59 DAILY CARLOS Non-Formulary Medication 2 mg 11/07/18 09:00 Glimepiride [Amaryl 2mg Tablet] PO 12/07/18 08:59 DAILY CARLOS Non-Formulary Medication 12 unit 11/07/18 09:00 Insulin Lispro Protamin/Lispro [Humalog Mix 75/25 100 Units/Ml 10ml Vial] SQ 12/07/18 08:59 DAILY CARLOS Non-Formulary Medication 15 unit 11/06/18 21:00 Insulin Lispro Protamin/Lispro [Humalog Mix 75/25 100 Units/Ml 10ml Vial] SQ 12/06/18 20:59 HS CARLOS Non-Formulary Medication 3 ml 11/06/18 15:32 Ipratropium/Albuterol Sulfate [Duoneb 3ml Neb] Q6HP PRN copd Non-Formulary Medication 100 mg 11/06/18 21:00 Lamotrigine [Lamotrigine] PO 12/06/18 20:59 BID CARLOS Non-Formulary Medication 1 each 11/07/18 09:00 Memantine Hcl/Donepezil Hcl [Namzaric 28 Mg-10 Mg Capsule] PO 12/07/18 08:59 DAILY CARLOS Non-Formulary Medication 17.2 mg 11/06/18 21:00 Sennosides [Senna Lax] PO 12/06/18 20:59 HS CARLOS Non-Formulary Medication 2 tab 11/06/18 21:00 Sennosides/Docusate Sodium [Sennosides-Docusate Sodium Tab] PO 12/06/18 20:59 HS CARLOS Non-Formulary Medication 7.5 mg 11/06/18 15:45 11/06/18 23:17 Warfarin Sodium [Coumadin 5mg Tablet] PO 12/06/18 15:44 Not Given SUTUWETHSA CARLOS Non-Formulary Medication 10 mg 11/07/18 15:32 Warfarin Sodium [Warfarin Sodium] PO 12/07/18 15:31 MOFR CARLOS Non-Formulary Medication 1 each 11/06/18 21:00 Sacubitril/Valsartan [Entresto 49 Mg-51 Mg Tablet] PO 12/06/18 20:59 BID CARLOS Non-Formulary Medication 12 unit 11/07/18 09:00 11/07/18 07:07 Insulin Lispro Protamin/Lispro [Humalog Mix 75/25 100 Units/Ml 10ml Vial] SQ 12/07/18 08:59 12 unit DAILY CARLOS Administration Non-Formulary Medication 15 unit 11/06/18 21:00 11/06/18 22:05 Insulin Lispro Protamin/Lispro [Humalog Mix 75/25 100 Units/Ml 10ml Vial] SQ 12/06/18 20:59 Not Given HS CARLOS Non-Formulary Medication 3 ml 11/06/18 17:23 11/07/18 06:35 Ipratropium/Albuterol Sulfate [Duoneb 3ml Neb] IH 3 ml Q6HP PRN Administration copd Non-Formulary Medication 17.2 mg 11/06/18 21:00 11/06/18 20:43 Sennosides [Senna Lax] PO 12/06/18 20:59 Not Given HS CARLOS Non-Formulary Medication 2 tab 11/06/18 21:00 11/06/18 20:26 Sennosides/Docusate Sodium [Sennosides-Docusate Sodium Tab] PO 12/06/18 20:59 2 tab HS CARLOS Administration Non-Formulary Medication 7.5 mg 11/06/18 17:23 11/06/18 17:40 Warfarin Sodium [Coumadin 5mg Tablet] PO 12/06/18 15:44 Not Given SUTUWETHSA CARLOS Sodium Chloride 3 ml 11/06/18 11:55 Sodium Chloride 3% 15ml Neb IH 12/06/18 11:54 ONCE PRN INDUCE SPUTUM COLLECTION ORDERS Category Date Time Status Blood Culture Stat Micro 11/06/18 12:00 Received Sputum Culture & Gram Stain Stat Micro 11/06/18 12:05 Ordered - Radiology Data #1 Image(s): Chest Image Reviewed: Yes I reviewed the patient's radiology results, Yes I have reviewed radiologist's interpretation Patient has a left lower lobe pneumonia with fluid in the right minor fissure bronchiectasis with bronchiectasis FINDINGS: Prior median sternotomy with valve replacement. Pacemaker device is present. There are chronic changes noted. There is increased density in both lower lobes consistent with superimposed bilateral lower lobe pneumonia. No acute bony anomalies. IMPRESSION: Bilateral lower lobe pneumonia Dictated By: Kar Lira MD Signed By: <Electronically signed by Kar Lira MD in [place]> Medical Decision Narrative: Patient presents with probable bilateral pneumonia borderline hypoxia dehydration possible sepsis with hypotension FINDINGS: Prior median sternotomy with valve replacement. Pacemaker device is present. There are chronic changes noted. There is increased density in both lower lobes consistent with superimposed bilateral lower lobe pneumonia. No acute bony anomalies. IMPRESSION: Bilateral lower lobe pneumonia Dictated By: Kar Lira MD Signed By: <Electronically signed by Kar Lira MD in [place]> 11/06/18 1459 Patient improved with multiple duo nebs with Pulmicort IV steroids and suctioning with improvement in his oxygenation and activity informed patient of the lab results and the left lower lobe pneumonia and need for admission Attempts at calling Dr Mcfarland ll covering for Dr. Chappell were eventually returned by his nurse practitioner Chanel patient admitted to stepdown telemetry for pneumonia hypoxia and transient hypotension dehydration DD/ [id number] General Adult HPI - General Chief complaint: Shortness of Breath/Dyspnea Stated complaint: soa, cough Time Seen by Provider: 11/06/18 11:50 Mode of Arrival: Wheelchair Source of Information: Patient, Spouse Limitations: No Limitations Description of Symptoms (Recalled from ER Triage Doc. by RN): pt presents with tightness,soa, and wheezing. has already been seen by pcp. - History of Present Illness HPI narrative: 83-year-old male complaining of several days of shortness of breath and cough according to his getting progressively more short of breath and getting weaker he is a non-smoker Exacerbating factors: movement - Related Data Home Medications Medication Instructions Recorded Confirmed aspirin 81 mg tablet,delayed 81 mg PO DAILY 11/26/17 11/06/18 release warfarin 5 mg tablet 7.5 mg PO SUTUWETHSA 11/26/17 11/06/18 RX: Carbidopa/Levodopa 1 tab PO TID 02/21/18 11/06/18 [Carbidopa/Levodopa 25/100mg Tablet] RX: Famotidine [Pepcid 20mg Tablet] 20 mg PO BID 02/21/18 11/06/18 RX: Furosemide [Furosemide 20mg 20 mg PO BID 02/21/18 11/07/18 Tab] RX: Insulin Lispro Protamin/Lispro 12 unit SQ 0730 02/21/18 11/07/18 [Humalog Mix 75/25 100 Units/mL 10mL Vial] RX: Insulin Lispro Protamin/Lispro 18 unit SQ 1700 02/21/18 11/07/18 [Humalog Mix 75/25 100 Units/mL 10mL Vial] RX: Sacubitril/Valsartan [Entresto 1 each PO BID 02/21/18 11/06/18 49 mg-51 mg Tablet] RX: carBAMazepine [carBAMazepine 600 mg PO HS 02/21/18 11/06/18 200mg Tablet] RX: lamoTRIgine [Lamotrigine] 100 mg PO BID 02/21/18 11/06/18 RX: Warfarin Sodium 10 mg PO MOFR 02/22/18 11/06/18 RX: Glimepiride [Amaryl 2mg tablet] 2 mg PO DAILY 09/10/18 11/06/18 RX: Ipratropium/Albuterol Sulfate 3 ml IH Q6HP PRN 09/10/18 11/06/18 [Duoneb 3mL neb] RX: Memantine HCl/Donepezil HCl 1 each PO DAILY 09/10/18 11/06/18 [Namzaric 28 mg-10 mg Capsule] RX: Sennosides [Senna Lax] 2 tab PO HS 09/10/18 11/07/18 RX: Atorvastatin Calcium 40 mg PO HS 09/11/18 11/06/18 [Atorvastatin 40mg Tab] Escitalopram Oxalate 10 mg PO DAILY 11/07/18 11/07/18 Allergies Allergy/AdvReac Type Severity Reaction Status Date / Time cefazolin [CEFAZOLIN] Allergy Unknown Verified 06/17/18 09:09 hydrocodone [HYDROCODONE] Allergy Unknown Verified 06/17/18 09:09 lidocaine [LIDOCAINE] Allergy Unknown Verified 06/17/18 09:09 [facility] History - Hepatitis A Screen Drug use history?: No High risk sexual behaviors?: No History of sexually transmitted infection?: No Currently employed?: No Childcare worker?: No Do you have indoor plumbing?: Yes Do you have electricity?: Yes Attestation statement:: This patient has been screened for Hepatitis A risk factors. I have reviewed the patient's past medical history: Yes Medical History: Reports:: Congestive Heart Failure, Coronary Artery Disease, Diabetes Mellitus Type 2, Hyperlipidemia, Hypertension, Myocardial Infarction Denies:: Cancer Other Surgeries: Yes: Appendectomy, Cholecystectomy, Skin Cancer Excision - Social History Educational Level: Completed High School Smoking Status: Former smoker Tobacco Type: cigarettes Alcohol Intake: never Occupational Status: retired Household Members: spouse - Psychiatric History Expresses thoughts of harming self/others: None Suicide Plan Description: No Plan ROS Obtained: Yes All systems reviewed & no additional complaints - Constitutional Constitutional: Reports as per HPI, Reports fatigue, Reports malaise - Cardiovascular Cardiovascular: Reports system reviewed and no additional complaints, except as docu - Respiratory Respiratory: Yes chest congestion, Yes cough, Yes dyspnea on exertion Physical Exam - General General appearance: alert, in distress (Short of breath tachypneic and weak) - Head Head exam: atraumatic, normocephalic, normal inspection - Eye Eye exam: Present: normal appearance, PERRL, EOMI - ENT ENT exam: Present: normal exam, normal oropharynx, mucous membranes moist, TM's normal bilaterally, normal external ear exam - Neck Neck exam: Present: normal inspection, full ROM, trachea midline. Absent: meningismus, lymphadenopathy - Chest Chest inspection: Present: normal inspection, symmetric chest wall rise. Absent: tenderness - Respiratory Respiratory exam: Present: respiratory distress, accessory muscle use (Bilateral rhonchi coarse cough with poor ability to bring up sputum) - Cardiovascular Cardiovascular exam: Present: regular rate, normal rhythm. Absent: JVD - Abdominal Exam Abdominal exam: Present: soft, normal bowel sounds. Absent: distention, tenderness, guarding - Extremities Exam Extremities exam: Present: normal inspection, full ROM, normal capillary refill. Absent: calf tenderness - Back Exam Back exam: Present: normal inspection. Absent: tenderness - Neurological Exam Neurological exam: Present: alert, oriented X3 - Psychiatric Psychiatric exam: Present: normal affect, normal mood - Skin Skin exam: Present: warm, dry, intact, normal color - Lymphatic Lymphatic Findings: no adenopathy
[2018-11-06 12:15] LABS: Basophils % 0.3 % (0.1-2.0); Eosinophils # 0.1 K/mm3 (0.0-0.4); Eosinophils % 1.2 % (0.1-12.0); Hematocrit 38.7 % (42.0-52.0); Hemoglobin 12.2 g/dL (14.1-18.0); Lymphocytes # 1.8 K/mm3 (0.7-4.5); Lymphocytes % 17.6 % (10-50); Mean Corpuscular HGB Conc 31.4 g/dL (31.8-35.4); Mean Corpuscular Hemoglobin 31.1 pg (27.0-31.2); Mean Platelet Volume 7.7 fl (7.4-10.4); Monocytes # 0.8 K/mm3 (0.1-1.0); Monocytes % 7.4 % (1.7-9.3); Neutrophils # 7.5 K/mm3 (1.8-7.8); Neutrophils % 73.5 % (37.0-80.0); Platelet Count 170 K/mm3 (142-424); Red Blood Count 3.91 M/mm3 (4.60-6.20); Red Cell Distribution Width 14.2 % (11.5-17.5); White Blood Count 10.2 K/mm3 (4.8-10.8)
[2018-11-06 12:34] LABS: Albumin Level 2.8 gm/dL (3.4-5.0); Albumin/Globulin Ratio 0.7 (1.1-1.8); Anion Gap 12.4 mEq/L (5-15); Bilirubin,Total 0.5 mg/dL (0.2-1.0); Calcium 8.6 mg/dL (8.5-10.1); Globulin 4.3 gm/dl (1.3-3.2); Potassium 4.4 mmoL/L (3.5-5.1); Total Protein,Serum 7.1 gm/dL (6.4-8.2)
[2018-11-06 12:44] LABS: INR 3.68 (0.9-1.1); Prothrombin Time 36.5 seconds (9.4-11.8)
[2018-11-06 12:45] LABS: Creatine Kinase 79 U/L (39-308)
[2018-11-07 06:12] LABS: Eosinophils # 0.1 K/mm3 (0.0-0.4); Monocytes # 0.6 K/mm3 (0.1-1.0); Neutrophils % 71.2 % (37.0-80.0)
[2018-11-07 06:22] LABS: Basophils % 0.2 % (0.1-2.0); Eosinophils % 0.8 % (0.1-12.0); Hematocrit 34.2 % (42.0-52.0); Lymphocytes # 1.5 K/mm3 (0.7-4.5); Lymphocytes % 19.4 % (10-50); Mean Corpuscular HGB Conc 31.1 g/dL (31.8-35.4); Mean Corpuscular Hemoglobin 30.7 pg (27.0-31.2); Mean Corpuscular Volume 98.8 fl (80-94); Mean Platelet Volume 7.3 fl (7.4-10.4); Monocytes % 8.3 % (1.7-9.3); Neutrophils # 5.3 K/mm3 (1.8-7.8); Platelet Count 158 K/mm3 (142-424); Red Blood Count 3.46 M/mm3 (4.60-6.20); Red Cell Distribution Width 14.3 % (11.5-17.5); White Blood Count 7.5 K/mm3 (4.8-10.8)
[2018-11-07 06:23] LABS: Anion Gap 10.2 mEq/L (5-15); Calcium 8.5 mg/dL (8.5-10.1); Potassium 4.2 mmoL/L (3.5-5.1)
[2018-11-07 06:24] LABS: INR 3.27 (0.9-1.1); Prothrombin Time 32.5 seconds (9.4-11.8)
[2018-11-07 06:26] LABS: Hemoglobin 10.6 g/dL (14.1-18.0)
--- NOTE | 2018-11-07 07:29 | Pharmacy Consult Notes ---
[facility] Pharmacy VTE Monitoring - Patient Demographics Admission date: 11/06/18 Report Date: 11/07/18 Time: 07:29 Allergies/Adverse Reactions: Patient Allergies cefazolin [CEFAZOLIN] Allergy (Unknown, Verified 06/17/18 09:09) hydrocodone [HYDROCODONE] Allergy (Unknown, Verified 06/17/18 09:09) lidocaine [LIDOCAINE] Allergy (Unknown, Verified 06/17/18 09:09) Height: 1.8 m Weight: 89.556 kg Patient Problems: Current Active Problems Pneumonia (Acute) Dehydration (Acute) Hypoxia (Acute) Hypotension (Acute) - VTE Risk Labs: VTE Related Lab Results Hgb 10.6 g/dL (14.1-18.0) L D 11/07/18 05:57 Hct 34.2 % (42.0-52.0) L 11/07/18 05:57 Plt Count 158 K/mm3 (142-424) 11/07/18 05:57 PT 32.5 seconds (9.4-11.8) H 11/07/18 05:57 INR 3.27 (0.9-1.1) H 11/07/18 05:57 BUN 37 mg/dL (7-18) H 11/07/18 05:57 Creatinine 1.45 mg/dL (0.70-1.30) H D 11/07/18 05:57 Estimated Creat Clear 51 mL/min (50-200) 11/07/18 05:57 VTE Score: 5 VTE Risk Level: Low Risk - Prophylaxis VTE Prophylaxis Ordered?: Yes Types of VTE Prophylaxis: Pharmacological Pharmacologic Type: Warfarin - VTE Diagnosis Confirmed Treatment or plan recommended: Continue Current Treatment
--- NOTE | 2018-11-07 08:15 | History & Physical Report ---
*Admission Date: 11/06/18 *Chief complaint: Cough/congestion *History of present illness: 83-year-old white male with significant cardiac history of coronary atherosclerosis, significant history of recurrent pneumonias, significant dementia history with bipolar disease complicates all aspects of his care. He was brought to the emergency department by his because of lethargy, cough and congestion, found to have left lower lobe infiltrate, acute kidney injury and was admitted to hospital for IV antibiotics. This morning he states that he is already feeling some better and ate a good breakfast. [facility] History I have reviewed the patient's past medical history: Yes Medical History: Reports:: Cancer (SKIN CANCER), Congestive Heart Failure (EF less than 35%, ischemic cardiomyopathy), Coronary Artery Disease, Diabetes Mellitus Type 2, Hyperlipidemia, Hypertension, Myocardial Infarction Denies:: MRSA Other Surgeries: Yes: Appendectomy, Cholecystectomy, Skin Cancer Excision Amputation: No Fractures: No - *Social History Educational Level: Attended Grade School Smoking Status: Former smoker Tobacco Type: cigarettes Alcohol Intake: never Occupational Status: retired Housing: house Household Members: spouse - Psychiatric History Expresses thoughts of harming self/others: None Suicide Plan Description: No Plan Review of Systems - Review of Systems Review of systems:: pertinent systems reviewed and negative unless documented below - Constitutional Reports anorexia, Reports chills, Reports fatigue, Reports fever(s), Reports night sweats, Denies body ache(s) - Eyes Denies blind spots, Denies blurry vision - ENT Denies abnormal hearing, Denies bleeding gums - *Cardiovascular Reports chest pain, Reports shortness of breath, Reports shortness of breath with activity, Reports irregular heart rhythm, Reports leg swelling - *Respiratory Reports change in phlegm color, Reports chest congestion - *Gastrointestinal Denies abdominal pain - *Genitourinary Denies difficulty urinating - *Musculoskeletal Denies abnormal walking, Denies joint pain - *Neurologic Reports abnormal walking, Denies abnormal hearing - Endocrine Reports excessive sweating Meds Home Medications Medication Instructions Recorded Confirmed Type aspirin 81 mg tablet,delayed 81 mg PO DAILY 11/26/17 11/06/18 History release warfarin 5 mg tablet 7.5 mg PO SUTUWETHSA 11/26/17 11/06/18 History Carbidopa/Levodopa 1 tab PO TID 02/21/18 11/06/18 History [Carbidopa/Levodopa 25/100mg Tablet] Famotidine [Pepcid 20mg Tablet] 20 mg PO BID 02/21/18 11/06/18 History Furosemide [Furosemide 20mg Tab] 20 mg PO DAILY 02/21/18 11/06/18 History Insulin Lispro Protamin/Lispro 12 unit SQ DAILY 02/21/18 11/06/18 History [Humalog Mix 75/25 100 Units/mL 10mL Vial] Insulin Lispro Protamin/Lispro 15 unit SQ HS 02/21/18 11/06/18 History [Humalog Mix 75/25 100 Units/mL 10mL Vial] Sacubitril/Valsartan [Entresto 49 1 each PO BID 02/21/18 11/06/18 History mg-51 mg Tablet] carBAMazepine [carBAMazepine 200mg 600 mg PO HS 02/21/18 11/06/18 History Tablet] lamoTRIgine [Lamotrigine] 100 mg PO BID 02/21/18 11/06/18 History Sennosides/Docusate Sodium 2 tab PO HS 02/22/18 11/06/18 History [Sennosides-Docusate Sodium Tab] Warfarin Sodium 10 mg PO MOFR 02/22/18 11/06/18 History Glimepiride [Amaryl 2mg tablet] 2 mg PO DAILY 09/10/18 11/06/18 History Ipratropium/Albuterol Sulfate 3 ml IH Q6HP PRN 09/10/18 11/06/18 History [Duoneb 3mL neb] Memantine HCl/Donepezil HCl 1 each PO DAILY 09/10/18 11/06/18 History [Namzaric 28 mg-10 mg Capsule] Sennosides [Senna Lax] 17.2 mg PO HS 09/10/18 11/06/18 History Atorvastatin Calcium [Atorvastatin 40 mg PO HS 09/11/18 11/06/18 History 40mg Tab] Allergies Allergy/AdvReac Type Severity Reaction Status Date / Time cefazolin [CEFAZOLIN] Allergy Unknown Verified 06/17/18 09:09 hydrocodone [HYDROCODONE] Allergy Unknown Verified 06/17/18 09:09 lidocaine [LIDOCAINE] Allergy Unknown Verified 06/17/18 09:09 Exam Vital signs and Labs for Last 24 Hours: Temp Pulse Resp BP Pulse Ox 97.7 F 71 19 125/58 L 98 11/07/18 04:00 11/07/18 07:03 11/07/18 04:00 11/07/18 04:00 11/07/18 07:03 Laboratory Results - last 24 hr 11/06/18 12:00: WBC 10.2, RBC 3.91 L, Hgb 12.2 L, Hct 38.7 L, MCV 99.0 H, MCH 31.1, MCHC 31.4 L, RDW 14.2, Plt Count 170, MPV 7.7, Neut % (Auto) 73.5, Lymph % (Auto) 17.6, [place] % (Auto) 7.4, Eos % (Auto) 1.2, Baso % (Auto) 0.3, Neut # (Auto) 7.5, Lymph # (Auto) 1.8, [place] # (Auto) 0.8, Eos # (Auto) 0.1, Baso # (Auto) 0.0 11/06/18 12:00: PT 36.5 H, INR 3.68 H 11/06/18 12:00: Sodium 140, Potassium 4.4, Chloride 105, Carbon Dioxide 27, Anion Gap 12.4, BUN 41 H, Creatinine 1.82 H, Estimated Creat Clear 40, Estimated GFR 36 L, Est GFR ( Amer) 43 L, Glucose 152 H, Calcium 8.6, Total Bilirubin 0.5, AST 8 L, ALT 6 L, Alkaline Phosphatase 76, Total Protein 7.1, Albumin 2.8 L, Globulin 4.3 H, Albumin/Globulin Ratio 0.7 L 11/06/18 12:00: Lactate 1.3 11/06/18 12:00: B-Natriuretic Peptide 705 H 11/06/18 12:00: Total Creatine Kinase 79, CK-MB (CK-2) 1.3, CK-MB (CK-2) Rel Index 1.6, Troponin I < 0.02 11/06/18 12:08: Influenza Type A Ag Negative, Influenza Type B Ag Negative 11/06/18 20:49: POC Glucose 388 H* 11/07/18 05:40: POC Glucose 102 11/07/18 05:57: WBC 7.5 D, RBC 3.46 L, Hgb 10.6 L D, Hct 34.2 L, MCV 98.8 H, MCH 30.7, MCHC 31.1 L, RDW 14.3, Plt Count 158, MPV 7.3 L, Neut % (Auto) 71.2, Lymph % (Auto) 19.4, [place] % (Auto) 8.3, Eos % (Auto) 0.8, Baso % (Auto) 0.2, Neut # (Auto) 5.3, Lymph # (Auto) 1.5, [place] # (Auto) 0.6, Eos # (Auto) 0.1, Baso # (Auto) 0.0 11/07/18 05:57: PT 32.5 H, INR 3.27 H 11/07/18 05:57: Sodium 140, Potassium 4.2, Chloride 107, Carbon Dioxide 27, Anion Gap 10.2, BUN 37 H, Creatinine 1.45 H D, Estimated Creat Clear 51, Estimated GFR 47 L, Est GFR ( Amer) 57 L D, Glucose 107 H D, Calcium 8.5 I & O for Last 24 hours: Intake & Output 11/04/18 11/05/18 11/06/18 11/07/18 11:59 11:59 11:59 11:59 Intake Total 240 / 240 Balance 240 / 240 Weight 197 lb 197 lb 7 oz Microbiology Reports for the Last 24 Hours: Microbiology 11/06/18 12:05 Sputum - Expectorated Sputum Gram Stain - Final Narrative: Patient is pleasant, alert, oriented x2, a little fuzzy about the date. Oropharynx clear. No JVD. Heart rate irregular but rate controlled. Lungs have rhonchi and crackles in the left lower lung field. However fairly symmetric air entry. No tracheal deviation. Abdomen soft and nontender. Patient has brawny skin changes in his extremities with previously noted mild abrasions, no evidence of cellulitis. Improved over his baseline exam. No focal neurologic deficits. Is globally weak but can move all 4 extremities. Assessment and Plan (1) Dehydration Current visit: Yes Status: Acute Category: Medical Code(s): E86.0 - Dehydration Cautious IV fluids. Watch labs tomorrow (2) Hypoxia Current visit: Yes Status: Acute Category: Medical Code(s): R09.02 - Hypoxemia Improving on oxygen therapy. (3) Pneumonia Current visit: Yes Status: Acute Category: Medical Code(s): J18.9 - Pneumonia, unspecified organism Community-acquired pneumonia. Continue levofloxacin therapy (4) Community acquired pneumonia Current visit: No Status: Acute Category: Medical Code(s): J18.9 - Pneumonia, unspecified organism
[2018-11-08 06:07] LABS: INR 1.69 (0.9-1.1); Prothrombin Time 17.1 seconds (9.4-11.8)
[2018-11-08 06:12] LABS: Albumin Level 2.5 gm/dL (3.4-5.0); Albumin/Globulin Ratio 0.6 (1.1-1.8); Anion Gap 12.7 mEq/L (5-15); Bilirubin,Total 0.5 mg/dL (0.2-1.0); Calcium 8.4 mg/dL (8.5-10.1); Globulin 3.9 gm/dl (1.3-3.2); Potassium 4.7 mmoL/L (3.5-5.1); Total Protein,Serum 6.4 gm/dL (6.4-8.2)
--- NOTE | 2018-11-08 08:37 | Progress Note ---
Internal Medicine - PN: Subj *Date: 11/08/18 *Time: 08:36 Interval history: Patient is slightly confused this morning but is reoriented to person and place fairly quickly. Nurses noted good sleeping overnight. No significant respiratory complaints. Exam Vital signs and Labs for Last 24 Hours: Temp Pulse Resp BP Pulse Ox 98.0 F 94 H 16 126/65 94 L 11/08/18 07:57 11/08/18 07:57 11/08/18 07:57 11/08/18 07:57 11/08/18 07:57 Laboratory Results - last 24 hr 11/07/18 11:05: POC Glucose 88 11/07/18 16:26: POC Glucose 130 H 11/07/18 20:20: POC Glucose 56 L 11/07/18 20:55: POC Glucose 68 L 11/07/18 21:28: POC Glucose 95 11/07/18 23:47: POC Glucose 109 11/08/18 05:45: PT 17.1 H, INR 1.69 H 11/08/18 05:45: Sodium 140, Potassium 4.7, Chloride 104, Carbon Dioxide 28, Anion Gap 12.7, BUN 32 H, Creatinine 1.43 H, Estimated Creat Clear 51, Estimated GFR 47 L, Est GFR ( Amer) 57 L, Glucose 118 H, Calcium 8.4 L, Total Bilirubin 0.5, AST 11 L D, ALT 10 L D, Alkaline Phosphatase 62, Total Protein 6.4, Albumin 2.5 L, Globulin 3.9 H, Albumin/Globulin Ratio 0.6 L 11/08/18 06:07: POC Glucose 126 H I & O for Last 24 hours: Intake & Output 11/05/18 11/06/18 11/07/18 11/08/18 11:59 11:59 11:59 11:59 Intake Total 480 / 480 580 / 580 Balance 480 / 480 580 / 580 Weight 197 lb 197 lb 7 oz 196 lb 9 oz Microbiology Reports for the Last 24 Hours: Microbiology 11/06/18 12:05 Sputum - Expectorated Sputum Gram Stain - Final 11/06/18 12:05 Sputum - Expectorated Sputum Sputum Culture - Preliminary Haemophilus parainfluenzae Narrative: Good air movement in both anterior lung croft. Heart rate irregular with 2/6 murmur. Abdomen soft. Oropharynx clear, no JVD. No focal neurologic deficits. Assessment and Plan (1) Dehydration Current visit: Yes Status: Acute Category: Medical Code(s): E86.0 - Dehydration (2) Hypoxia Current visit: Yes Status: Acute Category: Medical Code(s): R09.02 - Hypoxemia (3) Pneumonia Current visit: Yes Status: Acute Category: Medical Code(s): J18.9 - Pneumonia, unspecified organism (4) Community acquired pneumonia Current visit: No Status: Acute Category: Medical Code(s): J18.9 - Pneumonia, unspecified organism - Assessment and plan all Dx Assessment and Plan for all problems:: Above-noted problems are improving. Anticipate discharge tomorrow after 1 more day of IV fluids and antibiotics.
[2018-11-09 07:05] LABS: Basophils % 0.4 % (0.1-2.0); Eosinophils # 0.2 K/mm3 (0.0-0.4); Eosinophils % 2.2 % (0.1-12.0); Hematocrit 34.5 % (42.0-52.0); Hemoglobin 10.7 g/dL (14.1-18.0); Lymphocytes % 24.9 % (10-50); Mean Corpuscular HGB Conc 31.1 g/dL (31.8-35.4); Mean Corpuscular Volume 99.7 fl (80-94); Monocytes # 0.6 K/mm3 (0.1-1.0); Monocytes % 7.7 % (1.7-9.3); Neutrophils # 5.3 K/mm3 (1.8-7.8); Platelet Count 161 K/mm3 (142-424); Red Blood Count 3.46 M/mm3 (4.60-6.20); Red Cell Distribution Width 13.9 % (11.5-17.5); White Blood Count 8.1 K/mm3 (4.8-10.8)
[2018-11-09 07:14] LABS: Anion Gap 11.7 mEq/L (5-15); Calcium 8.3 mg/dL (8.5-10.1); Potassium 4.7 mmoL/L (3.5-5.1)
--- NOTE | 2018-11-09 08:51 | Progress Note ---
Internal Medicine - PN: Subj *Date: 11/09/18 *Time: 08:49 Interval history: Patient is a little better than yesterday evening. After my rounds yesterday he became very somnolent. Lots of respiratory congestion, but vital signs remained stable. On evening rounds yesterday he was essentially unresponsive except to vigorous tactile stimuli. Through the night he has slept well and awoken this morning and is almost back to his normal self. He complains of some right-sided mastoid pain. Exam Vital signs and Labs for Last 24 Hours: Temp Pulse Resp BP Pulse Ox 98.1 F 74 20 109/49 L 95 11/09/18 08:00 11/09/18 08:00 11/09/18 08:00 11/09/18 08:00 11/09/18 08:00 Laboratory Results - last 24 hr 11/08/18 12:07: POC Glucose 78 11/08/18 12:19: POC Glucose 92 11/08/18 16:23: POC Glucose 175 H 11/08/18 21:25: POC Glucose 146 H 11/09/18 06:08: POC Glucose 183 H 11/09/18 06:45: WBC 8.1, RBC 3.46 L, Hgb 10.7 L, Hct 34.5 L, MCV 99.7 H, MCH 31.0, MCHC 31.1 L, RDW 13.9, Plt Count 161, MPV 7.0 L, Neut % (Auto) 65.0, Lymph % (Auto) 24.9, [place] % (Auto) 7.7, Eos % (Auto) 2.2, Baso % (Auto) 0.4, Neut # (Auto) 5.3, Lymph # (Auto) 2.0, [place] # (Auto) 0.6, Eos # (Auto) 0.2, Baso # (Auto) 0.0 11/09/18 06:45: Sodium 140, Potassium 4.7, Chloride 104, Carbon Dioxide 29, Anion Gap 11.7, BUN 37 H, Creatinine 1.71 H, Estimated Creat Clear 42, Estimated GFR 39 L, Est GFR ( Amer) 47 L, Glucose 178 H, Calcium 8.3 L I & O for Last 24 hours: Intake & Output 11/06/18 11/07/18 11/08/18 11/09/18 11:59 11:59 11:59 11:59 Intake Total 480 / 480 680 / 680 340 / 340 Output Total 400 / 400 Balance 480 / 480 680 / 680 -60 / -60 Weight 197 lb 197 lb 7 oz 196 lb 9 oz 193 lb 3 oz Microbiology Reports for the Last 24 Hours: Microbiology 11/06/18 12:00 Blood Blood Culture - Preliminary NO GROWTH AFTER 48 HOURS 11/06/18 12:00 Blood Blood Culture - Preliminary NO GROWTH AFTER 48 HOURS 11/06/18 12:05 Sputum - Expectorated Sputum Gram Stain - Final 11/06/18 12:05 Sputum - Expectorated Sputum Sputum Culture - Final Haemophilus parainfluenzae Narrative: Patient's alert. Responsive. Confused about time and place but pleasant and oriented to person. Lungs have lots of rhonchi throughout. Consistent with baseline exam. Heart rate irregular. Abdomen is soft. He has some tenderness on the right mastoid but no redness or crepitus. Left side is clear. Assessment and Plan (1) Dehydration Current visit: Yes Status: Acute Category: Medical Code(s): E86.0 - Dehydration (2) Hypoxia Current visit: Yes Status: Acute Category: Medical Code(s): R09.02 - Hypoxemia (3) Pneumonia Current visit: Yes Status: Acute Category: Medical Code(s): J18.9 - Pneumonia, unspecified organism (4) Community acquired pneumonia Current visit: No Status: Acute Category: Medical Code(s): J18.9 - Pneumonia, unspecified organism - Assessment and plan all Dx Assessment and Plan for all problems:: Pneumonia seems to be improving. Continue current plan. Chronic kidney disease with dehydration issues-continue to monitor-creatinine improved this morning. Mental status changes-possibly from metabolic medical issues. CT scan of head today. Mastoid tenderness. Check CT scan. Patient is already on antibiotics
[2018-11-10 05:58] LABS: Basophils % 0.4 % (0.1-2.0); Eosinophils # 0.2 K/mm3 (0.0-0.4); Eosinophils % 2.3 % (0.1-12.0); Hematocrit 34.7 % (42.0-52.0); Lymphocytes # 1.4 K/mm3 (0.7-4.5); Lymphocytes % 17.9 % (10-50); Mean Corpuscular HGB Conc 31.7 g/dL (31.8-35.4); Mean Corpuscular Hemoglobin 31.3 pg (27.0-31.2); Mean Corpuscular Volume 98.8 fl (80-94); Monocytes # 0.6 K/mm3 (0.1-1.0); Neutrophils # 5.8 K/mm3 (1.8-7.8); Neutrophils % 72.4 % (37.0-80.0); Platelet Count 202 K/mm3 (142-424); Red Blood Count 3.51 M/mm3 (4.60-6.20); Red Cell Distribution Width 13.9 % (11.5-17.5)
[2018-11-10 06:05] LABS: Anion Gap 11.5 mEq/L (5-15); Calcium 8.4 mg/dL (8.5-10.1); Potassium 4.5 mmoL/L (3.5-5.1)
--- NOTE | 2018-11-10 08:13 | Discharge Summary ---
General - General Admission date:: 11/07/18 Discharge date: 11/10/18 HPI HPI: 83-year-old white male with significant cardiac history of coronary atherosclerosis, significant history of recurrent pneumonias, significant dementia history with bipolar disease complicates all aspects of his care. He was brought to the emergency department by his because of lethargy, cough and congestion, found to have left lower lobe infiltrate, acute kidney inj ury and was admitted to hospital for IV antibiotics. This morning he states that he is already feeling some better and ate a good breakfast. Hospital Course Hospital Course: Patient was admitted, placed on intravenous Levaquin and initially improved. 48 hours into his stay he had a spell with diminished mental status and some respiratory distress. His creatinine also bumped slightly. He was continue IV antibiotics and fluids and this improved. During the hospitalization had a long talk with his about his overall medical conditions and frailty, and she elected to pursue DNR status which is very appropriate given his cardiac issues. He continued to improve after his creatinine improved and did complain of a mild mastoid headache. CT scan of head with noncontrast showed no price changer his baseline history of old strokes but no evidence of mastoid issues. This morning he is vastly improved, is alert. Oriented x2-little fuzzy about the date but knows it is Remi time, and feels much less pain. He has eaten a good breakfast. Exam has improved as noted below. Plan will be to discharge home, with Levaquin p.o. as well as azithromycin to cover Haemophilus influenza pneumonia. We will initiate hospice referral given his advanced CHF and increasing fragility. Objective Vital signs: Temp Pulse Resp BP Pulse Ox 98.3 F 68 17 135/93 H 99 11/10/18 08:00 11/10/18 08:00 11/10/18 08:00 11/10/18 08:00 11/10/18 08:00 Narrative: Patient is pleasant. Smiles. Responds to commands. Alert and oriented x2. Oropharynx clear. No JVD. No mastoid tenderness this morning. Lungs have rhonchi bilaterally but at baseline. Heart rate regular with occasional ectopic beats. Abdomen soft and nontender. Brawny skin changes on legs as previously noted but no swelling. Diminished but present distal pulses. Moves all extremities symmetrically. Results Labs on day of discharge: Labs from last 24 hours 11/10/18 11/10/18 11/10/18 06:15 05:44 05:44 WBC 8.0 RBC 3.51 L Hgb 11.0 L Hct 34.7 L MCV 98.8 H MCH 31.3 H MCHC 31.7 L RDW 13.9 Plt Count 202 D MPV 8.0 Neut % (Auto) 72.4 Lymph % (Auto) 17.9 [place] % (Auto) 7.0 Eos % (Auto) 2.3 Baso % (Auto) 0.4 Neut # (Auto) 5.8 Lymph # (Auto) 1.4 [place] # (Auto) 0.6 Eos # (Auto) 0.2 Baso # (Auto) 0.0 Sodium 139 Potassium 4.5 Chloride 104 Carbon Dioxide 28 Anion Gap 11.5 BUN 32 H Creatinine 1.31 H D Estimated Creat Clear 55 Estimated GFR 53 L Est GFR ( Amer) 64 D Glucose 107 H D POC Glucose 106 Calcium 8.4 L 11/09/18 11/09/18 17:11 10:57 WBC RBC Hgb Hct MCV MCH MCHC RDW Plt Count MPV Neut % (Auto) Lymph % (Auto) [place] % (Auto) Eos % (Auto) Baso % (Auto) Neut # (Auto) Lymph # (Auto) [place] # (Auto) Eos # (Auto) Baso # (Auto) Sodium Potassium Chloride Carbon Dioxide Anion Gap BUN Creatinine Estimated Creat Clear Estimated GFR Est GFR ( Amer) Glucose POC Glucose 189 H 264 H Calcium Preliminary micro results at discharge 11/06/18 12:00 Blood Culture - Preliminary Blood NO GROWTH AFTER 48 HOURS 11/06/18 12:00 Blood Culture - Preliminary Blood NO GROWTH AFTER 48 HOURS DS: Diagnosis - Discharge Diagnosis (1) Dehydration Status: Resolved (2) Hypoxia Status: Resolved (3) Pneumonia Status: Acute Problem details: Contrary to Haemophilus influenza (4) Community acquired pneumonia Status: Acute Discharge Plan - Patient Discharge Instructions ACTIVITY: Continue current activity DIET: continue same diet Patient Instructions: DI for Pneumonia -- Adult, Warfarin, Coumadin Vitamin K/ Diet, Coumadin Therapy Booklet - Follow up Plan Follow up with: Tremaine Gómez MD [Primary Care Provider] - 1 week Unknown provider or service follow up:: 11/10/18 08:14 Care management consultation for hospice referral at home Disposition: Hospice - Home Home Medications: Home Medications Medication Instructions Recorded Confirmed Type aspirin 81 mg tablet,delayed 81 mg PO DAILY 11/26/17 11/06/18 History release warfarin 5 mg tablet 7.5 mg PO SUTUWETHSA 11/26/17 11/06/18 History Carbidopa/Levodopa 1 tab PO TID 02/21/18 11/06/18 History [Carbidopa/Levodopa 25/100mg Tablet] Famotidine [Pepcid 20mg Tablet] 20 mg PO BID 02/21/18 11/06/18 History Furosemide [Furosemide 20mg Tab] 20 mg PO BID 02/21/18 11/07/18 History Insulin Lispro Protamin/Lispro 12 unit SQ 0730 02/21/18 11/07/18 History [Humalog Mix 75/25 100 Units/mL 10mL Vial] Insulin Lispro Protamin/Lispro 18 unit SQ 1700 02/21/18 11/07/18 History [Humalog Mix 75/25 100 Units/mL 10mL Vial] Sacubitril/Valsartan [Entresto 49 1 each PO BID 02/21/18 11/06/18 History mg-51 mg Tablet] carBAMazepine [carBAMazepine 200mg 600 mg PO HS 02/21/18 11/06/18 History Tablet] lamoTRIgine [Lamotrigine] 100 mg PO BID 02/21/18 11/06/18 History Warfarin Sodium 10 mg PO MOFR 02/22/18 11/06/18 History Glimepiride [Amaryl 2mg tablet] 2 mg PO DAILY 09/10/18 11/06/18 History Ipratropium/Albuterol Sulfate 3 ml IH Q6HP PRN 09/10/18 11/06/18 History [Duoneb 3mL neb] Memantine HCl/Donepezil HCl 1 each PO DAILY 09/10/18 11/06/18 History [Namzaric 28 mg-10 mg Capsule] Sennosides [Senna Lax] 2 tab PO HS 09/10/18 11/07/18 History Atorvastatin Calcium [Atorvastatin 40 mg PO HS 09/11/18 11/06/18 History 40mg Tab] Escitalopram Oxalate 10 mg PO DAILY 11/07/18 11/07/18 History Azithromycin [Zithromax 250mg 250 mg PO DIRECTED #6 tab 11/10/18 Rx tab] levoFLOXacin [Levaquin 500mg 500 mg PO DAILY #7 tab 11/10/18 Rx tab] Prescriptions/Medication Reconciliation: New Azithromycin [Zithromax 250mg tab] 250 mg PO DIRECTED #6 tab levoFLOXacin [Levaquin 500mg tab] 500 mg PO DAILY #7 tab Continue aspirin 81 mg tablet,delayed release 81 mg PO DAILY warfarin 5 mg tablet 7.5 mg PO SUTUWETHSA Insulin Lispro Protamin/Lispro [Humalog Mix 75/25 100 Units/mL 10mL Vial] 12 unit SQ 0730 Insulin Lispro Protamin/Lispro [Humalog Mix 75/25 100 Units/mL 10mL Vial] 18 unit SQ 1700 carBAMazepine [carBAMazepine 200mg Tablet] 600 mg PO HS Furosemide [Furosemide 20mg Tab] 20 mg PO BID Famotidine [Pepcid 20mg Tablet] 20 mg PO BID Carbidopa/Levodopa [Carbidopa/Levodopa 25/100mg Tablet] 1 tab PO TID Warfarin Sodium 10 mg PO MOFR Sennosides [Senna Lax] 2 tab PO HS Memantine HCl/Donepezil HCl [Namzaric 28 mg-10 mg Capsule] 1 each PO DAILY Glimepiride [Amaryl 2mg tablet] 2 mg PO DAILY Ipratropium/Albuterol Sulfate [Duoneb 3mL neb] 3 ml IH Q6HP PRN PRN Reason: copd Escitalopram Oxalate 10 mg PO DAILY Sacubitril/Valsartan [Entresto 49 mg-51 mg Tablet] 1 each PO BID lamoTRIgine [Lamotrigine] 100 mg PO BID Atorvastatin Calcium [Atorvastatin 40mg Tab] 40 mg PO HS
[2018-11-10 08:30] LABS: INR 2.48 (0.9-1.1); Prothrombin Time 24.9 seconds (9.4-11.8)
== END 2018-11-10 11:01 | disposition hospice, home (50) | DRG 194 ==
LOC: 2ND 11:39 → ER 11:39 → 2ND 17:05
PROVIDERS: ADMIT Internal Medicine Adolescent Medicine; ATTEND Internal Medicine Adolescent Medicine
CPT/HCPCS: 36415; 70450; 71010; 71045; 71250; 80048; 80053; 82550; 82553; 82962; 83605; 83880; 84484; 85025; 85610; 87040; 87070; 87077; 87184; 87205; 87275; 87276; 93005; 94640; 94761; 96365; 96366; 96375; 99282; G0378; J1956

== ENCOUNTER 2019-01-25 12:11 | Observation (INO) ==
[2019-01-25 12:58] LABS: Basophils % 0.4 % (0.1-2.0); Eosinophils # 0.2 K/mm3 (0.0-0.4); Eosinophils % 2.7 % (0.1-12.0); Hematocrit 37.4 % (42.0-52.0); Hemoglobin 11.9 g/dL (14.1-18.0); Lymphocytes # 1.9 K/mm3 (0.7-4.5); Lymphocytes % 25.1 % (10-50); Mean Corpuscular HGB Conc 31.8 g/dL (31.8-35.4); Mean Corpuscular Volume 97.4 fl (80-94); Mean Platelet Volume 7.2 fl (7.4-10.4); Monocytes # 0.7 K/mm3 (0.1-1.0); Monocytes % 8.8 % (1.7-9.3); Neutrophils # 4.7 K/mm3 (1.8-7.8); Platelet Count 188 K/mm3 (142-424); Red Blood Count 3.84 M/mm3 (4.60-6.20); Red Cell Distribution Width 13.9 % (11.5-17.5); White Blood Count 7.5 K/mm3 (4.8-10.8)
[2019-01-25 13:09] LABS: Albumin Level 2.9 gm/dL (3.4-5.0); Albumin/Globulin Ratio 0.7 (1.1-1.8); Anion Gap 12.9 mEq/L (5-15); Bilirubin,Total 0.4 mg/dL (0.2-1.0); Calcium 8.8 mg/dL (8.5-10.1); Globulin 4.1 gm/dl (1.3-3.2); Potassium 4.9 mmoL/L (3.5-5.1)
--- NOTE | 2019-01-25 13:14 | Emergency Department Note ---
ED Disposition Clinical Impression: Urinary retention, Renal failure, Hypotension Disposition: Admitted as Observation Condition on Discharge: Good Time of Disposition: 17:54 - Critical Care Critical Care Time: No Attestation: On 01/25/19, the high probability of a clinically significant, sudden or life threatening deterioration of the following system(s) required my full and direct attention, intervention and personal management. The time I documented below is in addition to time spent performing reported procedures but includes the following listed in this critical care notation. Medical Decision Making - Obie Inquiry Pt receiving controlled substance: No Obie was queried for this patient: No Vital Signs: 01/25/19 12:25 01/25/19 14:31 01/25/19 17:30 Temperature 98.1 F Temperature Source Oral Pulse Rate [Left Radial] 77 77 79 Respiratory Rate 20 Blood Pressure [Right Arm] 142/85 H 124/69 137/77 Blood Pressure Mean [Right Arm] 104 87 97 Blood Pressure Source [Right Arm] Automatic Cuff Blood Pressure Position [Right Arm] Sitting 02 Sat by Pulse Oximetry 100 94 L 94 L Oxygen Delivery Method Room Air - Lab Data Lab Results 01/25/19 12:50: WBC 7.5, RBC 3.84 L, Hgb 11.9 L, Hct 37.4 L, MCV 97.4 H, MCH 31.0, MCHC 31.8, RDW 13.9, Plt Count 188, MPV 7.2 L, Neut % (Auto) 63.0, Lymph % (Auto) 25.1, [place] % (Auto) 8.8, Eos % (Auto) 2.7, Baso % (Auto) 0.4, Neut # ( Auto) 4.7, Lymph # (Auto) 1.9, [place] # (Auto) 0.7, Eos # (Auto) 0.2, Baso # (Auto) 0.0 01/25/19 12:50: Sodium 141, Potassium 4.9, Chloride 104, Carbon Dioxide 29, Anion Gap 12.9, BUN 57 H, Creatinine 2.66 H, Estimated Creat Clear 28, Estimated GFR 23 L, Est GFR ( Amer) 28 L, Glucose 85, Calcium 8.8, Total Bilirubin 0.4, AST 6 L, ALT 9 L, Alkaline Phosphatase 92, Total Protein 7.0, Albumin 2.9 L , Globulin 4.1 H, Albumin/Globulin Ratio 0.7 L 03/10/19 15:24: Urine Color Yellow, Urine Appearance Sl cloudy, Urine pH 6.0, Ur Specific [place] 1.020, Urine Protein Negative, Urine Glucose (UA) Negative, Urine Ketones Negative, Urine Blood Negative, Urine Nitrate Negative, Urine Bilirubin Negative, Urine Urobilinogen 0.2, Ur Leukocyte Esterase Negative, Urine WBC 3-5, Ur Squamous Epith Cells 3-5, Urine Bacteria 2+, Hyaline Casts 3-5 Result diagrams: 01/25/19 12:50 01/25/19 12:50 Orders (Tests/Meds): ED MEDICATIONS Generic Name Dose Route Start Last Admin Trade Name Freq PRN Reason Stop Dose Admin Acetaminophen 650 mg 01/25/19 17:45 Acetaminophen 325mg Tab PO 02/24/19 17:44 Q4HP PRN As Needed for Fever or Pain Albuterol/Ipratropium 3 ml 01/25/19 17:49 Duoneb 3ml Neb IH 02/24/19 17:48 Q6HP PRN copd Aspirin 81 mg 01/26/19 09:00 Aspirin 81mg Chewable Tablet PO 02/25/19 08:59 DAILY CARLOS Atorvastatin Calcium 40 mg 01/25/19 21:00 Lipitor 40mg Tablet PO 02/24/19 20:59 HS CARLOS Carbamazepine 600 mg 01/26/19 09:00 Carbamazepine 200mg Tablet PO 02/25/19 08:59 DAILY CARLOS Carbidopa/Levodopa 1 each 01/25/19 21:00 Carbidopa/Levodopa 25/100mg Tablet PO 02/24/19 20:59 TID CARLOS Furosemide 20 mg 01/25/19 21:00 Lasix 20mg Tablet PO 02/24/19 20:59 BID CARLOS Glimepiride 2 mg 01/26/19 09:00 Amaryl 2mg Tablet PO 02/25/19 08:59 DAILY CARLOS Sodium Chloride 1,000 mls @ 999 mls/hr 01/25/19 17:45 01/25/19 17:38 Sod Chlor 0.9% 1000ml Bag IV 01/25/19 18:45 999 mls/hr .Q1H1M CARLOS Administration Sodium Chloride 1,000 mls @ 999 mls/hr 01/25/19 17:45 01/25/19 17:38 Sod Chlor 0.9% 1000ml Bag IV 01/25/19 18:45 999 mls/hr .Q1H1M CARLOS Administration Sodium Chloride 1,000 mls @ 125 mls/hr 01/25/19 17:45 Sod Chlor 0.9% 1000ml Bag IV 02/24/19 17:44 .Q8H CARLOS Insulin Human Lispro 0 unit 01/25/19 21:00 Humalog 100 Units/Ml 3ml Vial (Ssi) SQ 02/24/19 20:59 ACHS CARLOS Protocol Insulin Lispro Protam/Lispro Human 12 unit 01/25/19 21:00 Humalog Mix 75/25 100 Units/Ml 10ml Vial SQ 02/24/19 20:59 BID CARLOS Non-Formulary Medication 1 each 01/26/19 09:00 Memantine Hcl/Donepezil Hcl [Namzaric 28 Mg-10 Mg Capsule] PO 02/25/19 08:59 DAILY CARLOS Non-Formulary Medication 1 each 01/25/19 21:00 Sacubitril/Valsartan [Entresto 49 Mg-51 Mg Tablet] PO 02/24/19 20:59 BID CARLOS Ondansetron HCl 4 mg 01/25/19 17:45 Zofran 4mg/2ml Vial IV 02/24/19 17:44 Q8HP PRN Nausea Sodium Chloride 10 ml 01/25/19 17:45 Saline Flush 10ml Syringe IV 02/24/19 17:44 NEEDED PRN Maintain IV Site Warfarin Sodium 5 mg 01/25/19 18:00 Coumadin 5mg Tablet PO 02/24/19 17:59 DIRECTED [facility] ORDERS Category Date Time Status Portable CXR [XR chest portable] Stat Exams 01/25/19 16:23 Taken Urine Culture Stat Micro 01/25/19 15:24 Received - Physician Consults Physician Consulted: soila Reason -: Admission General Adult HPI - General Chief complaint: Urogenital-Male Stated complaint: weakness Time Seen by Provider: 01/25/19 12:40 Mode of Arrival: Wheelchair Limitations: No Limitations Description of Symptoms (Recalled from ER Triage Doc. by RN): states that she thinks pt is dehydrated and he is unable to urinate since last night - Related Data Home Medications Medication Instructions Recorded Confirmed Carbidopa/Levodopa 1 tab PO TID 02/21/18 01/25/19 [Carbidopa/Levodopa 25/100mg Tablet] Famotidine [Pepcid 20mg Tablet] 20 mg PO BID 02/21/18 01/25/19 Furosemide [Furosemide 20mg Tab] 20 mg PO BID 02/21/18 01/25/19 Insulin Lispro Protamin/Lispro 12 unit SQ BID 02/21/18 01/25/19 [Humalog Mix 75/25 100 Units/mL 10mL Vial] Sacubitril/Valsartan [Entresto 49 1 each PO BID 02/21/18 01/25/19 mg-51 mg Tablet] Glimepiride [Amaryl 2mg tablet] 2 mg PO DAILY 09/10/18 01/25/19 Ipratropium/Albuterol Sulfate 3 ml IH Q6HP PRN 09/10/18 01/25/19 [Duoneb 3mL neb] Memantine HCl/Donepezil HCl 1 each PO DAILY 09/10/18 01/25/19 [Namzaric 28 mg-10 mg Capsule] Atorvastatin Calcium [Atorvastatin 40 mg PO HS 09/11/18 01/25/19 40mg Tab] Escitalopram Oxalate 10 mg PO DAILY 11/07/18 01/25/19 Docusate Sodium [Colace] 200 mg PO DAILY 01/16/19 01/25/19 Aspirin [Aspirin 81mg chewable 81 mg PO DAILY 01/19/19 01/25/19 tab] Quetiapine Fumarate [Seroquel 25mg 50 mg PO DIRECTED 01/19/19 01/25/19 tablet] Sennosides [Senna] 1,702 mg PO DAILY 01/19/19 01/25/19 Warfarin Sodium 5 mg PO DIRECTED 01/19/19 01/25/19 Warfarin Sodium 7.5 mg PO DIRECTED 01/19/19 01/25/19 carBAMazepine [carBAMazepine 200mg 600 mg PO DAILY 01/19/19 01/25/19 Tablet] diphenhydrAMINE HCl 25 mg PO DIRECTED 01/19/19 01/25/19 [Diphenhydramine HCl] lamoTRIgine [Lamotrigine] 100 mg PO DAILY 01/19/19 01/25/19 Allergies Allergy/AdvReac Type Severity Reaction Status Date / Time cefazolin [CEFAZOLIN] Allergy Unknown Verified 01/19/19 21:23 hydrocodone [HYDROCODONE] Allergy Unknown Verified 01/19/19 21:23 lidocaine [LIDOCAINE] Allergy Unknown Verified 01/19/19 21:23 [facility] History - Hepatitis A Screen Drug use history?: No High risk sexual behaviors?: No History of sexually transmitted infection?: No Currently employed?: No Childcare worker?: No Do you have indoor plumbing?: Yes Do you have electricity?: Yes Attestation statement:: This patient has been screened for Hepatitis A risk factors. Medical History: Reports:: Congestive Heart Failure, Coronary Artery Disease, Diabetes Mellitus Type 1, Hyperlipidemia, Hypertension, Myocardial Infarction Denies:: Cancer, Diabetes Mellitus Type 2, MRSA Other Surgeries: Yes: Appendectomy, Cholecystectomy, Skin Cancer Excision Amputation: No Fractures: No - Social History Smoking Status: Never smoker Tobacco Type: cigarettes Alcohol Intake: never Occupational Status: retired Housing: house Household Members: spouse - Psychiatric History Expresses thoughts of harming self/others: None Suicide Plan Description: No Plan ROS Obtained: Yes All systems reviewed & no additional complaints - Constitutional Constitutional: Denies chills, Denies fever(s) - Eyes Eyes: Denies change in vision - ENT Ears, Nose, Mouth, and Throat: Denies throat swelling - Cardiovascular Cardiovascular: Denies chest pain, Denies chest pain at rest, Denies diaphoresis - Respiratory Respiratory: No system reviewed and no additional complaints, except as docu, No chest congestion, No cough, No dyspnea on exertion - Gastrointestinal Gastrointestingal: Reports: abdominal pain. Denies: diarrhea, nausea, vomiting - Genitourinary Male Genitourinary: Reports urinary hesitancy - Musculoskeletal Musculoskeletal: Denies joint stiffness, Denies joint swelling - Integumentary/Breasts Skin/Breast: Denies rash - Neurologic Neurologic: Denies seizure-like activity, Denies sensory deficit, Denies tremor(s) - Hematologic/Lymphatic Henatologic/Lymphatic: Denies easy bleeding, Denies easy bruising, Denies lym phadenopathy Physical Exam - General General appearance: alert, lethargic - Head Head exam: atraumatic - Eye Eye exam: Present: normal appearance, PERRL, EOMI - ENT ENT exam: Present: normal exam, normal oropharynx, mucous membranes moist, TM's normal bilaterally, normal external ear exam - Chest Chest inspection: Present: normal inspection, symmetric chest wall rise. Absent : tenderness - Respiratory Respiratory exam: Present: normal lung sounds bilaterally. Absent: respiratory distress - Cardiovascular Cardiovascular exam: Present: regular rate, normal rhythm. Absent: JVD - Abdominal Exam Abdominal exam: Present: soft, normal bowel sounds. Absent: distention, tenderness, guarding - Extremities Exam Extremities exam: Present: normal inspection, full ROM, normal capillary refill. Absent: calf tenderness - Neurological Exam Neurological exam: Present: alert, CN II-XII intact. Absent: oriented X3 - Psychiatric Psychiatric exam: Present: normal affect, normal mood - Skin Skin exam: Present: warm, dry, intact, normal color
[2019-01-25 15:30] LABS: Microscopic, Urine URINE MICROSCOPIC (MICROSCOPIC)
[2019-01-25 15:32] LABS: Appearance,Urine SL CLOUDY (Clear); Bilirubin,Urine Negative (Negative); Blood, Urine Negative (Negative); Color,Urine YELLOW (Yellow); Glucose,Urine (UA) Negative (Negative); Ketones,Urine Negative (Negative); Leukocyte Esterase,Urine Negative (Negative); Protein,Urine Negative (Negative); Urobilinogen,Urine 0.2 EU/dl (0.2)
[2019-01-25 15:43] LABS: Bacteria,Urine 2+ /lpf
[2019-01-26 06:45] LABS: Basophils % 0.2 % (0.1-2.0); Eosinophils # 0.1 K/mm3 (0.0-0.4); Hematocrit 36.5 % (42.0-52.0); Hemoglobin 11.5 g/dL (14.1-18.0); Lymphocytes # 1.7 K/mm3 (0.7-4.5); Lymphocytes % 23.8 % (10-50); Mean Corpuscular HGB Conc 31.5 g/dL (31.8-35.4); Mean Corpuscular Hemoglobin 30.5 pg (27.0-31.2); Mean Corpuscular Volume 96.9 fl (80-94); Monocytes # 0.6 K/mm3 (0.1-1.0); Monocytes % 8.7 % (1.7-9.3); Neutrophils # 4.6 K/mm3 (1.8-7.8); Neutrophils % 65.3 % (37.0-80.0); Platelet Count 170 K/mm3 (142-424); Red Blood Count 3.76 M/mm3 (4.60-6.20); White Blood Count 7.1 K/mm3 (4.8-10.8)
[2019-01-26 06:53] LABS: Anion Gap 11.7 mEq/L (5-15); Potassium 4.7 mmoL/L (3.5-5.1)
--- NOTE | 2019-01-26 07:39 | Pharmacy Consult Notes ---
[facility] Pharmacy VTE Monitoring - Patient Demographics Admission date: 01/25/19 Report Date: 01/26/19 Time: 07:39 Allergies/Adverse Reactions: Patient Allergies cefazolin [CEFAZOLIN] Allergy (Unknown, Verified 01/19/19 21:23) hydrocodone [HYDROCODONE] Allergy (Unknown, Verified 01/19/19 21:23) lidocaine [LIDOCAINE] Allergy (Unknown, Verified 01/19/19 21:23) Height: 1.8 m Weight: 85.899 kg Patient Problems: Current Active Problems Hypotension (Acute) Urinary retention (Acute) Renal failure (Acute) - VTE Risk Labs: VTE Related Lab Results Hgb 11.5 g/dL (14.1-18.0) L 01/26/19 06:00 Hct 36.5 % (42.0-52.0) L 01/26/19 06:00 Plt Count 170 K/mm3 (142-424) 01/26/19 06:00 BUN 35 mg/dL (7-18) H D 01/26/19 06:00 Creatinine 1.52 mg/dL (0.70-1.30) H D 01/26/19 06:00 Estimated Creat Clear 46 mL/min (50-200) 01/26/19 06:00 Was VTE Risk Assessment Performed: Yes VTE Score: 6 VTE Risk Level: Moderate Risk - Prophylaxis VTE Prophylaxis Ordered?: Yes Types of VTE Prophylaxis: Pharmacological Pharmacologic Type: Warfarin - VTE Diagnosis Confirmed Treatment or plan recommended: Continue Current Treatment
--- NOTE | 2019-01-26 08:03 | History & Physical Report ---
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 Of note patient has had several medication changes over the past couple of weeks, Seroquel was started by neurology because of his increasing behavioral disturbances and insomnia which has been helpful intermittently with sleep and aggressive behavior. 2 days ago he began XR Seroquel to help with sleeping through the night which was helpful at home, but then the patient had this episode of urinary retention yesterday morning. Brought to the emergency department where Bose catheter was placed with over 1 L of urinary bladder residual. Patient was found to have acute kidney injury, superimposed on chronic kidney injury with creatinine above 2.5, his baseline is 1.5. He was admitted to hospital for continued Bose catheter use, observation of kidney function and further delineation of his ongoing medical problems. [facility] History I have reviewed the patient's past medical history: Yes Medical History: Reports:: Congestive Heart Failure (Severe systolic and diastolic failure, [place] [employer] stage III), Coronary Artery Disease, Diabetes Mellitus Type 2, Hyperlipidemia, Hypertension, Internal Pacemaker, Myocardial Infarction Denies:: Cancer, Diabetes Mellitus Type 1, MRSA *Have you ever received a pneumonia vaccine?: Yes *Have you received a flu vaccine this season?: Yes Other Medical History: Reports: Arthritis, Cataracts Laterality Cases: Bilateral: Cataract Other Surgeries: Yes: Appendectomy, CABG, Cardiac Catheterization, Cholecystectomy, Colonoscopy, Coronary Stent, EGD, Hernia Repair, Open Heart Surgery, Pacemaker, Skin Cancer Excision Amputation: No Fractures: No - *Social History Educational Level: Completed Grade School Smoking Status: Never smoker Tobacco Type: cigarettes Alcohol Intake: never *Occupational Status:: disabled Housing: house Household Members: spouse *Travel in the last 8 weeks: None - Psychiatric History Expresses thoughts of harming self/others: None Suicide Plan Description: No Plan Family Hx:: Cancer, Hypertension Review of Systems - Review of Systems Review of systems:: unable to obtain Review of systems is difficult to obtain, patient himself denies pain, breathing problems or problems with his catheter. His reports that he said sleeping difficulties through the night here in the hospital but yesterday at home was more reasonable. She reports the urinary retention issues but denies changes in his stool habits. - *Neurologic Denies seizure-like activity, Denies sensory deficit, Denies tremor(s) Meds Home Medications Medication Instructions Recorded Confirmed Type Carbidopa/Levodopa 1 tab PO TID 02/21/18 01/25/19 History [Carbidopa/Levodopa 25/100mg Tablet] Famotidine [Pepcid 20mg Tablet] 20 mg PO BID 02/21/18 01/25/19 History Furosemide [Furosemide 20mg Tab] 20 mg PO BID 02/21/18 01/25/19 History Insulin Lispro Protamin/Lispro 12 unit SQ BID 02/21/18 01/25/19 History [Humalog Mix 75/25 100 Units/mL 10mL Vial] Sacubitril/Valsartan [Entresto 49 1 each PO BID 02/21/18 01/25/19 History mg-51 mg Tablet] Glimepiride [Amaryl 2mg tablet] 2 mg PO DAILY 09/10/18 01/25/19 History Ipratropium/Albuterol Sulfate 3 ml IH Q6HP PRN 09/10/18 01/25/19 History [Duoneb 3mL neb] Memantine HCl/Donepezil HCl 1 each PO DAILY 09/10/18 01/25/19 History [Namzaric 28 mg-10 mg Capsule] Atorvastatin Calcium [Atorvastatin 40 mg PO HS 09/11/18 01/25/19 History 40mg Tab] Escitalopram Oxalate 10 mg PO DAILY 11/07/18 01/25/19 History Docusate Sodium [Colace] 200 mg PO DAILY 01/16/19 01/25/19 History Aspirin [Aspirin 81mg chewable 81 mg PO DAILY 01/19/19 01/25/19 History tab] Quetiapine Fumarate [Seroquel 25mg 50 mg PO DIRECTED 01/19/19 01/25/19 History tablet] Sennosides [Senna] 1,702 mg PO DAILY 01/19/19 01/25/19 History Warfarin Sodium 5 mg PO DIRECTED 01/19/19 01/25/19 History Warfarin Sodium 7.5 mg PO DIRECTED 01/19/19 01/25/19 History carBAMazepine [carBAMazepine 200mg 600 mg PO DAILY 01/19/19 01/25/19 History Tablet] diphenhydrAMINE HCl 25 mg PO DIRECTED 01/19/19 01/25/19 History [Diphenhydramine HCl] lamoTRIgine [Lamotrigine] 100 mg PO DAILY 01/19/19 01/25/19 History Allergies Allergy/AdvReac Type Severity Reaction Status Date / Time cefazolin [CEFAZOLIN] Allergy Unknown Verified 01/19/19 21:23 hydrocodone [HYDROCODONE] Allergy Unknown Verified 01/19/19 21:23 lidocaine [LIDOCAINE] Allergy Unknown Verified 01/19/19 21:23 Exam Vital signs and Labs for Last 24 Hours: Temp Pulse Resp BP Pulse Ox 98.2 F 78 18 119/71 92 L 01/26/19 04:00 01/26/19 04:00 01/26/19 04:00 01/26/19 04:00 01/26/19 04:00 Laboratory Results - last 24 hr 01/25/19 12:50: WBC 7.5, RBC 3.84 L, Hgb 11.9 L, Hct 37.4 L, MCV 97.4 H, MCH 31.0, MCHC 31.8, RDW 13.9, Plt Count 188, MPV 7.2 L, Neut % (Auto) 63.0, Lymph % (Auto) 25.1, [place] % (Auto) 8.8, Eos % (Auto) 2.7, Baso % (Auto) 0.4, Neut # (Auto) 4.7, Lymph # (Auto) 1.9, [place] # (Auto) 0.7, Eos # (Auto) 0.2, Baso # (Auto) 0.0 01/25/19 12:50: Sodium 141, Potassium 4.9, Chloride 104, Carbon Dioxide 29, Anion Gap 12.9, BUN 57 H, Creatinine 2.66 H, Estimated Creat Clear 28, Estimated GFR 23 L, Est GFR ( Amer) 28 L, Glucose 85, Calcium 8.8, Total Bilirubin 0.4, AST 6 L, ALT 9 L, Alkaline Phosphatase 92, Total Protein 7.0, Albumin 2.9 L, Globulin 4.1 H, Albumin/Globulin Ratio 0.7 L 01/25/19 15:24: Urine Color Yellow, Urine Appearance Sl cloudy, Urine pH 6.0, Ur Specific [place] 1.020, Urine Protein Negative, Urine Glucose (UA) Negative, Urine Ketones Negative, Urine Blood Negative, Urine Nitrate Negative, Urine Bilirubin Negative, Urine Urobilinogen 0.2, Ur Leukocyte Esterase Negative, Urine WBC 3-5, Ur Squamous Epith Cells 3-5, Urine Bacteria 2+, Hyaline Casts 3-5 01/25/19 20:34: POC Glucose 200 H 01/26/19 05:59: POC Glucose 104 01/26/19 06:00: WBC 7.1, RBC 3.76 L, Hgb 11.5 L, Hct 36.5 L, MCV 96.9 H, MCH 30.5, MCHC 31.5 L, RDW 14.0, Plt Count 170, MPV 7.0 L, Neut % (Auto) 65.3, Lymph % (Auto) 23.8, [place] % (Auto) 8.7, Eos % (Auto) 2.0, Baso % (Auto) 0.2, Neut # (Auto) 4.6, Lymph # (Auto) 1.7, [place] # (Auto) 0.6, Eos # (Auto) 0.1, Baso # ( Auto) 0.0 01/26/19 06:00: Sodium 142, Potassium 4.7, Chloride 109 H, Carbon Dioxide 26, Anion Gap 11.7, BUN 35 H D, Creatinine 1.52 H D, Estimated Creat Clear 46, Estimated GFR 44 L, Est GFR ( Amer) 54 L D, Glucose 99, Calcium 8.0 L I & O for Last 24 hours: Intake & Output 01/23/19 01/24/19 01/25/19 01/26/19 10:59 10:59 11:59 11:59 Intake Total 1235 / 1235 Output Total 1550 / 1550 Balance -315 / -315 Weight 189 lb 6 oz Narrative: Patient is alert, oriented x2. Oropharynx is clear but slightly dry. No JVD. Otherwise ENT exam clear. Heart rate regular with holosystolic murmur as previously noted. Anterior lung croft have rhonchi. Good air movement. At baseline. Abdomen soft and nontender. Bose catheter is draining clear yellow urine. Patient has his baseline edema and brawny skin changes in his extremities of his legs, pulses are diminished but present in all 4 extremities. He is globally weak but is able to move all 4 extremities. Assessment and Plan (1) Systolic CHF with reduced left ventricular function, NYHA class 3 Current visit: Yes Status: Acute Category: Medical Code(s): I50.20 - Unspecified systolic (congestive) heart failure Patient is euvolemic. Continue current medications. (2) Parkinson's disease dementia Current visit: Yes Status: Acute Category: Medical Code(s): G20 - Parkinson's disease; F02.80 - Dementia in other diseases classified elsewhere without behavioral disturbance Patient with significant parkinsonism and dementia disease, with overlapping behavioral disturbances. Atypical antipsychotics have been somewhat effective, but possibly causing urinary retention. Patient's and family have indicated that they are very worried about his home safety. I share in this concern and we will make an effort to see if there is a geriatric psychiatric facility that would be able to evaluate patient on transfer. (3) Dementia with behavioral disturbance Current visit: Yes Status: Acute Category: Medical Code(s): F03.91 - Unspecified dementia with behavioral disturbance See notes above (4) Renal failure Current visit: Yes Status: Acute Category: Medical Code(s): N19 - Unspecified kidney failure Slightly improved after bladder drainage. Continue Bose catheter placement. (5) Urinary retention Current visit: Yes Status: Acute Category: Medical Code(s): R33.9 - Retention of urine, unspecified
[2019-01-26 08:48] LABS: INR 3.33 (0.9-1.1); Prothrombin Time 33.1 seconds (9.4-11.8)
[2019-01-27 06:37] LABS: Basophils % 0.4 % (0.1-2.0); Eosinophils # 0.2 K/mm3 (0.0-0.4); Hematocrit 36.2 % (42.0-52.0); Hemoglobin 11.3 g/dL (14.1-18.0); Lymphocytes # 1.4 K/mm3 (0.7-4.5); Lymphocytes % 24.1 % (10-50); Mean Corpuscular HGB Conc 31.2 g/dL (31.8-35.4); Mean Corpuscular Hemoglobin 30.8 pg (27.0-31.2); Mean Corpuscular Volume 98.7 fl (80-94); Mean Platelet Volume 7.2 fl (7.4-10.4); Monocytes # 0.5 K/mm3 (0.1-1.0); Monocytes % 8.9 % (1.7-9.3); Neutrophils # 3.6 K/mm3 (1.8-7.8); Neutrophils % 63.6 % (37.0-80.0); Platelet Count 155 K/mm3 (142-424); Red Blood Count 3.67 M/mm3 (4.60-6.20); Red Cell Distribution Width 13.9 % (11.5-17.5); White Blood Count 5.6 K/mm3 (4.8-10.8)
[2019-01-27 06:45] LABS: INR 2.95 (0.9-1.1); Prothrombin Time 29.4 seconds (9.4-11.8)
[2019-01-27 06:52] LABS: Albumin Level 2.4 gm/dL (3.4-5.0); Albumin/Globulin Ratio 0.6 (1.1-1.8); Anion Gap 11.6 mEq/L (5-15); Bilirubin,Total 0.3 mg/dL (0.2-1.0); Calcium 8.2 mg/dL (8.5-10.1); Globulin 3.8 gm/dl (1.3-3.2); Potassium 4.6 mmoL/L (3.5-5.1); Total Protein,Serum 6.2 gm/dL (6.4-8.2)
--- NOTE | 2019-01-27 07:44 | Discharge Summary ---
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 Of note patient has had several medication changes over the past couple of weeks, Seroquel was started by neurology because of his increasing behavioral disturbances and insomnia which has been helpful intermittently with sleep and aggressive behavior. 2 days ago he began XR Seroquel to help with sleeping through the night which was helpful at home, but then the patient had this episode of urinary retention yesterday morning. Brought to the emergency department where Bose catheter was placed with over 1 L of urinary bladder residual. Patient was found to have acute kidney injury, superimposed on chronic kidney injury with creatinine above 2.5, his baseline is 1.5. He was admitted to hospital for continued Bose catheter use, observation of kidney function and further delineation of his ongoing medical problems. Hospital Course Hospital Course: Admitted for fatigue, urinary retention, altered mental status. Has done well during admission. No outbursts or worsening of altered mental status. Urinary retention has resolved. Patient acting more himself. Accepted for transfer to facility in [place] due to patient's dementia and behavioral disturbances. Plan for transfer today with family. Patient is medically stable for discharge. Objective Vital signs: Temp Pulse Resp BP Pulse Ox 97.6 F 84 22 98/53 L 95 01/27/19 04:00 01/27/19 04:00 01/27/19 04:00 01/27/19 04:00 01/27/19 04:00 Narrative: Patient is alert, oriented x2. Oropharynx is clear but slightly dry. No JVD. Otherwise ENT exam clear. Left jain laceration with sutures in place, CDI Heart rate regular with holosystolic murmur as previously noted. Anterior lung croft have rhonchi. Good air movement. At baseline. Abdomen soft and nontender. Patient has his baseline edema and brawny skin changes in his extremities of his legs, pulses are diminished but present in all 4 extremities. He is globally weak but is able to move all 4 extremities. Results Labs on day of discharge: Labs from last 24 hours 01/27/19 01/27/19 01/27/19 06:09 06:09 06:09 WBC 5.6 RBC 3.67 L Hgb 11.3 L Hct 36.2 L MCV 98.7 H MCH 30.8 MCHC 31.2 L RDW 13.9 Plt Count 155 MPV 7.2 L Neut % (Auto) 63.6 Lymph % (Auto) 24.1 [place] % (Auto) 8.9 Eos % (Auto) 3.0 Baso % (Auto) 0.4 Neut # (Auto) 3.6 Lymph # (Auto) 1.4 [place] # (Auto) 0.5 Eos # (Auto) 0.2 Baso # (Auto) 0.0 PT 29.4 H INR 2.95 H Sodium 142 Potassium 4.6 Chloride 109 H Carbon Dioxide 26 Anion Gap 11.6 BUN 29 H Creatinine 1.21 D Estimated Creat Clear 58 Estimated GFR 58 L Est GFR ( Amer) 70 D Glucose 78 POC Glucose Calcium 8.2 L Total Bilirubin 0.3 AST 14 L D ALT 7 L Alkaline Phosphatase 80 Total Protein 6.2 L Albumin 2.4 L Globulin 3.8 H Albumin/Globulin Ratio 0.6 L 01/27/19 01/26/19 01/26/19 05:45 20:21 16:30 WBC RBC Hgb Hct MCV MCH MCHC RDW Plt Count MPV Neut % (Auto) Lymph % (Auto) [place] % (Auto) Eos % (Auto) Baso % (Auto) Neut # (Auto) Lymph # (Auto) [place] # (Auto) Eos # (Auto) Baso # (Auto) PT INR Sodium Potassium Chloride Carbon Dioxide Anion Gap BUN Creatinine Estimated Creat Clear Estimated GFR Est GFR ( Amer) Glucose POC Glucose 71 217 H 152 H Calcium Total Bilirubin AST ALT Alkaline Phosphatase Total Protein Albumin Globulin Albumin/Globulin Ratio 01/26/19 01/26/19 11:29 08:25 WBC RBC Hgb Hct MCV MCH MCHC RDW Plt Count MPV Neut % (Auto) Lymph % (Auto) [place] % (Auto) Eos % (Auto) Baso % (Auto) Neut # (Auto) Lymph # (Auto) [place] # (Auto) Eos # (Auto) Baso # (Auto) PT 33.1 H INR 3.33 H Sodium Potassium Chloride Carbon Dioxide Anion Gap BUN Creatinine Estimated Creat Clear Estimated GFR Est GFR ( Amer) Glucose POC Glucose 174 H Calcium Total Bilirubin AST ALT Alkaline Phosphatase Total Protein Albumin Globulin Albumin/Globulin Ratio Preliminary micro results at discharge 01/25/19 15:24 Urine Culture - Preliminary Urine,Catheterized NO GROWTH AFTER 24 HOURS DS: Diagnosis - Discharge Diagnosis (1) Systolic CHF with reduced left ventricular function, NYHA class 3 Status: Chronic (2) Parkinson's disease dementia Status: Chronic (3) Dementia with behavioral disturbance Status: Chronic (4) Renal failure Status: Resolved (5) Urinary retention Status: Resolved Discharge Plan - Patient Discharge Instructions ACTIVITY: Continue current activity DIET: continue same diet Patient Instructions: DI for Urinary Retention in Men - Follow up Plan Disposition: Xfer Psychiatric Hosp Home Medications: Home Medications Medication Instructions Recorded Confirmed Type Carbidopa/Levodopa 1 tab PO TID 02/21/18 01/25/19 History [Carbidopa/Levodopa 25/100mg Tablet] Famotidine [Pepcid 20mg Tablet] 20 mg PO BID 02/21/18 01/25/19 History Furosemide [Furosemide 20mg Tab] 20 mg PO BID 02/21/18 01/25/19 History Insulin Lispro Protamin/Lispro 0 unit SQ DIRECTED 02/21/18 01/26/19 History [Humalog Mix 75/25 100 Units/mL 10mL Vial] Sacubitril/Valsartan [Entresto 49 1 each PO BID 02/21/18 01/25/19 History mg-51 mg Tablet] Glimepiride [Amaryl 2mg tablet] 2 mg PO DAILY 09/10/18 01/25/19 History Ipratropium/Albuterol Sulfate 3 ml IH Q6HP PRN 09/10/18 01/25/19 History [Duoneb 3mL neb] Memantine HCl/Donepezil HCl 1 each PO DAILY 09/10/18 01/25/19 History [Namzaric 28 mg-10 mg Capsule] Atorvastatin Calcium [Atorvastatin 40 mg PO HS 09/11/18 01/25/19 History 40mg Tab] Escitalopram Oxalate 10 mg PO DAILY 11/07/18 01/25/19 History Docusate Sodium [Colace] 200 mg PO DAILY 01/16/19 01/25/19 History Aspirin [Aspirin 81mg chewable 81 mg PO DAILY 01/19/19 01/25/19 History tab] Quetiapine Fumarate [Seroquel 25mg 25 mg PO DIRECTED 01/19/19 01/26/19 History tablet] Sennosides [Senna] 17.2 mg PO DAILY 01/19/19 01/26/19 History Warfarin Sodium 7.5 mg PO SUTUWETHSA 01/19/19 01/26/19 History Warfarin Sodium 10 mg PO MOFR 01/19/19 01/26/19 History carBAMazepine [carBAMazepine 200mg 600 mg PO DAILY 01/19/19 01/25/19 History Tablet] diphenhydrAMINE HCl 25 mg PO HSP PRN 01/19/19 01/26/19 History [Diphenhydramine HCl] lamoTRIgine [Lamotrigine] 100 mg PO DAILY 01/19/19 01/25/19 History Prescriptions/Medication Reconciliation: Continue Insulin Lispro Protamin/Lispro [Humalog Mix 75/25 100 Units/mL 10mL Vial] 0 unit SQ DIRECTED Furosemide [Furosemide 20mg Tab] 20 mg PO BID Famotidine [Pepcid 20mg Tablet] 20 mg PO BID Carbidopa/Levodopa [Carbidopa/Levodopa 25/100mg Tablet] 1 tab PO TID Memantine HCl/Donepezil HCl [Namzaric 28 mg-10 mg Capsule] 1 each PO DAILY Glimepiride [Amaryl 2mg tablet] 2 mg PO DAILY Ipratropium/Albuterol Sulfate [Duoneb 3mL neb] 3 ml IH Q6HP PRN PRN Reason: copd Escitalopram Oxalate 10 mg PO DAILY Docusate Sodium [Colace] 200 mg PO DAILY Warfarin Sodium 10 mg PO MOFR Sennosides [Senna] 17.2 mg PO DAILY lamoTRIgine [Lamotrigine] 100 mg PO DAILY carBAMazepine [carBAMazepine 200mg Tablet] 600 mg PO DAILY Aspirin [Aspirin 81mg chewable tab] 81 mg PO DAILY Warfarin Sodium 7.5 mg PO SUTUWETHSA Quetiapine Fumarate [Seroquel 25mg tablet] 25 mg PO DIRECTED Sacubitril/Valsartan [Entresto 49 mg-51 mg Tablet] 1 each PO BID Atorvastatin Calcium [Atorvastatin 40mg Tab] 40 mg PO HS Discontinued diphenhydrAMINE HCl [Diphenhydramine HCl] 25 mg PO HSP PRN PRN Reason: Sleep
== END 2019-01-27 11:25 ==
LOC: ICU 12:11 → ER 12:11 → ICU 18:02 → 2ND 01-26 21:45
PROVIDERS: ADMIT Family Medicine; ATTEND Internal Medicine Adolescent Medicine
DX: E78.5 Hyperlipidemia, unspecified; Z79.82 Long term (current) use of aspirin; E10.8 Type 1 diabetes mellitus with unspecified complications; Z88.6 Allergy status to analgesic agent; Z79.01 Long term (current) use of anticoagulants; I95.9 Hypotension, unspecified; Z79.899 Other long term (current) drug therapy; I50.20 Unspecified systolic (congestive) heart failure; N19 Unspecified kidney failure; I25.10 Atherosclerotic heart disease of native coronary artery without angina pectoris; R33.9 Retention of urine, unspecified; Z79.4 Long term (current) use of insulin; I11.0 Hypertensive heart disease with heart failure; Z51.81 Encounter for therapeutic drug level monitoring; Z91.09 Other allergy status, other than to drugs and biological substances; R53.1 Weakness; I25.2 Old myocardial infarction; Z95.0 Presence of cardiac pacemaker; Z91.83 Wandering in diseases classified elsewhere; G31.83 Neurocognitive disorder with Lewy bodies; F02.81 Dementia in other diseases classified elsewhere, unspecified severity, with behavioral disturbance
CPT/HCPCS: 36415; 71010; 71045; 80048; 80053; 81001; 82962; 85025; 85610; 87086; 96365; 96367; 97110; 97162; 97166; 97530; 97535; 99284; G0378

== ENCOUNTER 2019-03-31 13:05 | Observation (INO) | payer MEDICARE, BC, SELFPAY ==
[2019-03-31] VITALS (9 sets, daily range): BP systolic 109–154; BP diastolic 61–79; PULSE 70–124; RESP 16–20; TEMP 36.4–36.9; O2SAT 94–100; BMI 28.4
--- NOTE | 2019-03-31 13:13 | XR_ITS ---
XR chest 2V HISTORY: Chest pain and shortness of breath ORDERING PHYSICIAN: Tito Greene MD PATIENT AGE: 83 years COMPARISON: 03/27/2019 FINDINGS: Prior CABG. 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 COPD with chronic changes. Persistent density noted in the left lower lobe consistent with atelectasis or infiltrate slightly improved IMPRESSION: COPD. Postsurgical changes. Persistent left lower lobe airspace disease slightly improved.
--- NOTE | 2019-03-31 13:22 | HMH.EDGENADL ---
ED Disposition Clinical Impression: Healthcare-associated pneumonia, COPD exacerbation Disposition: Admitted as Observation Condition on Discharge: Fair Referrals: Provider,Referral, [Primary Care Provider] - - Critical Care Critical Care Time: No Attestation: On , the high probability of a clinically significant, sudden or life threatening deterioration of the following system(s) required my full and direct attention, intervention and personal management. The time I documented below is in addition to time spent performing reported procedures but includes the following listed in this critical care notation. Medical Decision Making - Obie Inquiry Pt receiving controlled substance: No Vital Signs: 03/31/19 13:05 03/31/19 13:52 Temperature 98.4 F Temperature Source Oral Pulse Rate [Right Brachial] 74 70 Respiratory Rate 18 Blood Pressure [Right Arm] 134/79 Blood Pressure Mean [Right Arm] 97 Blood Pressure Source [Right Arm] Automatic Cuff Blood Pressure Position [Right Arm] Supine 02 Sat by Pulse Oximetry 98 99 Oxygen Delivery Method Nasal Cannula Room Air Oxygen Flow Rate (LPM) 2 - Lab Data Lab Results 03/31/19 13:20: WBC 7.6, RBC 4.08 L, Hgb 12.3 L, Hct 39.0 L, MCV 95.7 H, MCH 30.3, MCHC 31.6 L, RDW 14.2, Plt Count 193, MPV 6.9 L, Neut % (Auto) 59.7, Lymph % (Auto) 28.9, [place] % (Auto) 8.0, Eos % (Auto) 3.0, Baso % (Auto) 0.5, Neut # (Auto) 4.5, Lymph # (Auto) 2.2, [place] # (Auto) 0.6, Eos # (Auto) 0.2, Baso # (Auto) 0.0 03/31/19 13:20: Sodium 141, Potassium 5.0, Chloride 107, Carbon Dioxide 29, Anion Gap 10.0, BUN 37 H, Creatinine 1.55 H, Estimated Creat Clear 47, Estimated GFR 43 L, Est GFR ( Amer) 52 L, Glucose 54 L, Calcium 8.3 L, Troponin I < 0.02 03/31/19 14:34: PT 24.8 H, INR 2.49 H Result diagrams: 03/31/19 13:20 03/31/19 13:20 Orders (Tests/Meds): ED MEDICATIONS Generic Name Dose Route Start Last Admin Trade Name Freq PRN Reason Stop Dose Admin Piperacillin Sod/Tazobactam 50 mls @ 100 mls/hr 03/31/19 15:15 Sod 3.375 gm/ Sodium Chloride IV 04/14/19 15:14 Q6H CARLOS Protocol Azithromycin 500 mg/ Sodium 250 mls @ 250 mls/hr 03/31/19 15:15 Chloride IV 04/14/19 15:14 Q24H CARLOS Protocol Nitroglycerin 0.4 mg 03/31/19 13:12 Nitrostat 0.4mg Sl Tablet SL 04/01/19 13:13 Q5MINP PRN Chest Pain Discontinued Medications Generic Name Dose Route Start Last Admin Trade Name Freq PRN Reason Stop Dose Admin Albuterol/Ipratropium 3 ml 03/31/19 14:18 Duoneb 3ml Neb IH 03/31/19 14:19 ONCE ONE Aspirin 324 mg 03/31/19 13:12 03/31/19 13:56 Aspirin 81mg Chewable Tablet PO 03/31/19 13:13 243 mg ONCE ONE Administration Methylprednisolone Sodium Succinate 125 mg 03/31/19 14:18 Solu-Medrol 125mg/2ml Vial IV 03/31/19 14:19 ONCE ONE ORDERS Category Date Time Status Troponin I Q3H Lab 03/31/19 16:15 Ordered Troponin I Q3H Lab 03/31/19 19:15 Ordered - ECG Data Tracing #1 EKG interpreted by Tito Greene MD: Rhythm: sinus Rate: 76 Conduction: Left bundle branch block, chronic Prior electrocardiagrams reviewed. No change from prior tracings. - Physician Consults Physician Consulted: Bartolo Gómez Time: 14:30 Reason -: Admission Comment/Response: Agrees to admit the patient to the hospital. We discussed the patient's clinical information, including history, exam, laboratory and radiology results and ED course. Per hospital procedure, I will write temporary bridge inpatient orders on the patient. Specific orders requested by the admitting physician: Discussed antibiotic regimen, patient has a recent admission here in January. He requests Zosyn and azithromycin. Continue steroids and nebulizer treatments. Medical Decision Narrative: Chest x-ray radiologist interpretation from his 03/27/2019 visit reviewed, read as lingular infiltrate. Patient lists allergy to cefazolin, but re
[2019-03-31 13:37] LABS: Basophils % 0.5 % (0.1-2.0); Eosinophils # 0.2 K/mm3 (0.0-0.4); Hemoglobin 12.3 g/dL (14.1-18.0); Lymphocytes # 2.2 K/mm3 (0.7-4.5); Lymphocytes % 28.9 % (10-50); Mean Corpuscular HGB Conc 31.6 g/dL (31.8-35.4); Mean Corpuscular Hemoglobin 30.3 pg (27.0-31.2); Mean Corpuscular Volume 95.7 fl (80-94); Mean Platelet Volume 6.9 fl (7.4-10.4); Monocytes # 0.6 K/mm3 (0.1-1.0); Neutrophils # 4.5 K/mm3 (1.8-7.8); Neutrophils % 59.7 % (37.0-80.0); Platelet Count 193 K/mm3 (142-424); Red Blood Count 4.08 M/mm3 (4.60-6.20); Red Cell Distribution Width 14.2 % (11.5-17.5); White Blood Count 7.6 K/mm3 (4.8-10.8)
--- NOTE | 2019-03-31 13:48 | PC.NURSE ---
back from rad. placed back on monitor per rad
[2019-03-31 13:53] LABS: Blood Urea Nitrogen 37 mg/dL (7-18); Calcium 8.3 mg/dL (8.5-10.1); Carbon Dioxide 29 mmol/L (21.0-32.0); Chloride 107 mmol/L (98-107); Creatinine Clearance Estimated 47 mL/min (50-200); Creatinine,Serum 1.55 mg/dL (0.70-1.30); Estimated Glomerular Filt Rate 43 ml/min (>60); GFR (African American) 52 ML/MIN (>60); Glucose 54 mg/dL (74-106); Sodium 141 mmol/L (136-145); Troponin I < 0.02 ng/ml (0.00-0.06)
--- NOTE | 2019-03-31 14:20 | PC.NURSE ---
[place] juice given to pt. tolerating well at this time
[2019-03-31 14:47] LABS: INR 2.49 (0.9-1.1); Prothrombin Time 24.8 seconds (9.4-11.8)
--- NOTE | 2019-03-31 15:06 | PC.NURSE ---
HS gave bed number and spoke with Garima Mason who advised pt would be OBS status. Called out front and let admissions know
--- NOTE | 2019-03-31 16:24 | PC.NURSE ---
New IV in right wrist place 20 G, Old IV in left wrist removed
[2019-03-31 16:38] LABS: Troponin I < 0.02 ng/ml (0.00-0.06)
[2019-03-31 16:41] LABS: POC Glucose,Bedside 166 (70-110)
--- NOTE | 2019-03-31 17:28 | HMH.HP ---
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 states symptoms began last Saturday or with a cough and congestion. Tried to see primary care on Saturday however primary care was out sick. Went to the urgent treatment on Saturday where he was diagnosed with a pneumonia seen on x-ray in the left lower lobe. Started on Levaquin. Has not gotten better. States last night he coughs so much he did not sleep. Do not feel antibiotics are working at this time. Denies fevers, nausea vomiting, diarrhea. Complained of some chest tightness with coughing and trace lower extremity edema. In the ER patient had a repeat chest x-ray that showed persistent airspace disease, negative troponin. Added BNP to labs to assess for component of CHF in the setting of a normal white count and no fever. Patient currently not requiring oxygen. He was admitted to hospital for IV antibiotics and continued work-up. [facility] History I have reviewed the patient's past medical history: Yes Medical History: Reports:: Congestive Heart Failure, Coronary Artery Disease, Diabetes Mellitus Type 2, Hyperlipidemia, Hypertension, Internal Pacemaker, Myocardial Infarction Denies:: Cancer, Diabetes Mellitus Type 1, MRSA *Have you ever received a pneumonia vaccine?: Yes *Have you received a flu vaccine this season?: Yes Other Medical History: Reports: Arthritis, Cataracts Other Surgeries: Yes: Appendectomy, CABG, Cancer Surgery (skin), Cardiac Catheterization, Cholecystectomy, Colonoscopy, Coronary Stent, EGD, Hernia Repair, Open Heart Surgery, Pacemaker, Skin Cancer Excision Amputation: No Fractures: No - *Social History Smoking Status: Never smoker Tobacco Type: cigarettes Alcohol Intake: never Substance Use Type: denies use *Occupational Status:: disabled Housing: house Household Members: spouse *Travel in the last 8 weeks: None - Psychiatric History Expresses thoughts of harming self/others: None Suicide Plan Description: No Plan Family Hx:: Cancer, Hypertension Review of Systems - Review of Systems Review of systems:: pertinent systems reviewed and negative unless documented below Meds Home Medications Medication Instructions Recorded Confirmed Type Carbidopa/Levodopa 1 tab PO TID 02/21/18 03/31/19 History [Carbidopa/Levodopa 25/100mg Tablet] Famotidine [Pepcid 20mg Tablet] 20 mg PO BID 02/21/18 03/31/19 History Furosemide [Furosemide 20mg Tab] 20 mg PO BID 02/21/18 03/31/19 History Insulin Lispro Protamin/Lispro 0 unit SQ DIRECTED 02/21/18 03/31/19 History [Humalog Mix 75/25 100 Units/mL 10mL Vial] Ipratropium/Albuterol Sulfate 3 ml IH Q6HP PRN 09/10/18 03/31/19 History [Duoneb 3mL neb] Memantine HCl/Donepezil HCl 1 each PO DAILY 09/10/18 03/31/19 History [Namzaric 28 mg-10 mg Capsule] Atorvastatin Calcium [Atorvastatin 40 mg PO HS 09/11/18 03/31/19 History 40mg Tab] Escitalopram Oxalate 10 mg PO DAILY 11/07/18 03/31/19 History Docusate Sodium [Colace] 200 mg PO DAILY 01/16/19 03/31/19 History Aspirin [Aspirin 81mg chewable 81 mg PO DAILY 01/19/19 03/31/19 History tab] Sennosides [Senna] 17.2 mg PO DAILY 01/19/19 03/31/19 History carBAMazepine [carBAMazepine 200mg 600 mg PO HS 01/19/19 03/31/19 History Tablet] quetiapine 200 mg tablet 200 mg PO HS tab 03/24/19 03/31/19 History quetiapine 2
--- NOTE | 2019-03-31 17:31 | P.HP_ITS ---
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 states symptoms began last Saturday or with a cough and congestion. Tried to see primary care on Saturday however primary care was out sick. Went to the urgent treatment on Saturday where he was diagnosed with a pneumonia seen on x-ray in the left lower lobe. Started on Levaquin. Has not gotten better. States last night he coughs so much he did not sleep. Do not feel antibiotics are working at this time. Denies fevers, nausea vomiting, diarrhea. Complained of some chest tightness with coughing and trace lower extremity edema. In the ER patient had a repeat chest x-ray that showed persistent airspace dis ease, negative troponin. Added BNP to labs to assess for component of CHF in the setting of a normal white count and no fever. Patient currently not requiring oxygen. He was admitted to hospital for IV antibiotics and continued work-up. [facility] History I have reviewed the patient's past medical history: Yes Medical History: Reports:: Congestive Heart Failure, Coronary Artery Disease, Diabetes Mellitus Type 2, Hyperlipidemia, Hypertension, Internal Pacemaker, Myocardial Infarction Denies:: Cancer, Diabetes Mellitus Type 1, MRSA *Have you ever received a pneumonia vaccine?: Yes *Have you received a flu vaccine this season?: Yes Other Medical History: Reports: Arthritis, Cataracts Other Surgeries: Yes: Appendectomy, CABG, Cancer Surgery (skin), Cardiac Catheterization, Cholecystectomy, Colonoscopy, Coronary Stent, EGD, Hernia Repair, Open Heart Surgery, Pacemaker, Skin Cancer Excision Amputation: No Fractures: No - *Social History Smoking Status: Never smoker Tobacco Type: cigarettes Alcohol Intake: never Substance Use Type: denies use *Occupational Status:: disabled Housing: house Household Members: spouse *Travel in the last 8 weeks: None - Psychiatric History Expresses thoughts of harming self/others: None Suicide Plan Description: No Plan Family Hx:: Cancer, Hypertension Review of Systems - Review of Systems Review of systems:: pertinent systems reviewed and negative unless documented below Meds Home Medications Medication Instructions Recorded Confirmed Type Carbidopa/Levodopa 1 tab PO TID 02/21/18 03/31/19 History [Carbidopa/Levodopa 25/100mg Tablet] Famotidine [Pepcid 20mg Tablet] 20 mg PO BID 02/21/18 03/31/19 History Furosemide [Furosemide 20mg Tab] 20 mg PO BID 02/21/18 03/31/19 History Insulin Lispro Protamin/Lispro 0 unit SQ DIRECTED 02/21/18 03/31/19 History [Humalog Mix 75/25 100 Units/mL 10mL Vial] Ipratropium/Albuterol Sulfate 3 ml IH Q6HP PRN 09/10/18 03/31/19 History [Duoneb 3mL neb] Memantine HCl/Donepezil HCl 1 each PO DAILY 09/10/18 03/31/19 History [Namzaric 28 mg-10 mg Capsule] Atorvastatin Calcium [Atorvastatin 40 mg PO HS 09/11/18 03/31/19 History 40mg Ta
[2019-03-31 18:07] LABS: POC Glucose,Bedside 301 (70-110)
--- NOTE | 2019-03-31 18:48 | PC.NURSE ---
Pt resting in bed. A/O x 2, verbalizes needs. SANTO DOMINGO. Facial lesion noted to right cheek, states skin CA removal. Pt does get confused at night time per . Ambulates with walker at home. 22g IV to right wrist, patent and intact - SL. Abdomen soft and non-tender. Lungs with rhonci throughout, no respiratory distress noted. Productive cough noted. Denies dyspnea. C/o's shortness of breath with activity. Scattered scabs to BLE's. Refused SARAH's, non-skid socks in place. Bed alarm in place r/t unsafe unassisted transfers. Encouraged PO fluids per MD. Incentive spirometer placed at bedside, proper return demonstration noted. at bedside earlier and supportive. Home meds locked in drawer. Call light within reach, will continue to observe.
[2019-03-31 19:37] LABS: Troponin I < 0.02 ng/ml (0.00-0.06)
[2019-04-01] VITALS (10 sets, daily range): BP systolic 101–121; BP diastolic 52–64; PULSE 70–99; RESP 18–20; TEMP 36.3–36.8; O2SAT 90–98; BMI 28.0; BMI 27.9
[2019-04-01 01:35] LABS: POC Glucose,Bedside 365 (70-110)
--- NOTE | 2019-04-01 04:27 | PC.NURSE ---
PT HAS SLEPT. NO COUGH NOTED, UNABLE TO PROVIDE A SPUTUM. PT HAVASUPAI. DURING NIGHT UP TWICE TO BATHROOM, PT HAS TO BE REORIENTED TO SURROUNDINGS. BED ALARM ON. CONTINUES ON RA.
[2019-04-01 05:54] LABS: POC Glucose,Bedside 288 (70-110)
[2019-04-01 07:10] LABS: Basophils % 0.1 % (0.1-2.0); Eosinophils % 0.5 % (0.1-12.0); Hematocrit 39.7 % (42.0-52.0); Hemoglobin 12.1 g/dL (14.1-18.0); Lymphocytes # 0.8 K/mm3 (0.7-4.5); Lymphocytes % 10.6 % (10-50); Mean Corpuscular HGB Conc 30.5 g/dL (31.8-35.4); Mean Corpuscular Volume 98.2 fl (80-94); Mean Platelet Volume 7.2 fl (7.4-10.4); Monocytes # 0.3 K/mm3 (0.1-1.0); Monocytes % 3.5 % (1.7-9.3); Neutrophils # 6.4 K/mm3 (1.8-7.8); Neutrophils % 85.3 % (37.0-80.0); Platelet Count 174 K/mm3 (142-424); Red Blood Count 4.04 M/mm3 (4.60-6.20); Red Cell Distribution Width 14.2 % (11.5-17.5); White Blood Count 7.5 K/mm3 (4.8-10.8)
[2019-04-01 07:18] LABS: MANUAL DIFFERENTIAL MANUAL DIFFERENTIAL (MANUAL DIFF)
[2019-04-01 07:24] LABS: Alanine Aminotransferase 11 U/L (12-78); Albumin Level 2.8 gm/dL (3.4-5.0); Albumin/Globulin Ratio 0.7 (1.1-1.8); Alkaline Phosphatase 105 U/L (46-116); Anion Gap 11.2 mEq/L (5-15); Aspartate Amino Transferase 7 U/L (15-37); Bilirubin,Total 0.3 mg/dL (0.2-1.0); Blood Urea Nitrogen 40 mg/dL (7-18); Calcium 8.2 mg/dL (8.5-10.1); Carbon Dioxide 27 mmol/L (21.0-32.0); Chloride 106 mmol/L (98-107); Creatinine Clearance Estimated 43 mL/min (50-200); Creatinine,Serum 1.68 mg/dL (0.70-1.30); Estimated Glomerular Filt Rate 39 ml/min (>60); GFR (African American) 48 ML/MIN (>60); Globulin 4.3 gm/dl (1.3-3.2); Glucose 323 mg/dL (74-106); Potassium 5.2 mmoL/L (3.5-5.1); Sodium 139 mmol/L (136-145); Total Protein,Serum 7.1 gm/dL (6.4-8.2)
--- NOTE | 2019-04-01 07:25 | P.CONPHA_ITS ---
[facility] Pharmacy VTE Monitoring - Patient Demographics Admission date: 03/31/19 Report Date: 04/01/19 Time: 07:25 Allergies/Adverse Reactions: Patient Allergies cefazolin [CEFAZOLIN] Allergy (Unknown, Verified 03/31/19 13:11) hydrocodone [HYDROCODONE] Allergy (Unknown, Verified 03/31/19 13:11) lidocaine [LIDOCAINE] Allergy (Unknown, Verified 03/31/19 13:11) Height: 1.78 m Weight: 88.564 kg Patient Problems: Current Active Problems (Updated 03/31/19 @ 23:00 by Erickson Mcfarland MD) COPD exacerbation (Acute) Healthcare-associated pneumonia (Acute) Stasis dermatitis of both legs (Acute) - VTE Risk Labs: VTE Related Lab Results Hgb 12.1 g/dL (14.1-18.0) L 04/01/19 06:47 Hct 39.7 % (42.0-52.0) L 04/01/19 06:47 Plt Count 174 K/mm3 (142-424) 04/01/19 06:47 PT 24.8 seconds (9.4-11.8) H 03/31/19 14:34 INR 2.49 (0.9-1.1) H 03/31/19 14:34 BUN 37 mg/dL (7-18) H 03/31/19 13:20 Creatinine 1.55 mg/dL (0.70-1.30) H 03/31/19 13:20 Estimated Creat Clear 47 mL/min (50-200) 03/31/19 13:20 Was VTE Risk Assessment Performed: Yes VTE Score: 7 VTE Risk Level: Moderate Risk Clinical Trial Participant: No - Prophylaxis VTE Prophylaxis Ordered?: Yes Types of VTE Prophylaxis: TEDS Knee High
--- NOTE | 2019-04-01 07:33 | SW/DCPLANNER ---
PATIENT ADMITTED TO [facility] WITH A PNUEMONIA...HE RESIDES AT HOME AT THE CURRENT TIME. WILL FOLLOW PATIENT THROUGH HIS ACUTE CARE STAY AND ASSIST WITH ANY ORDERS FOR DISCHARGE PLANNING THAT IS NECESSARY AT TIME OF DISPOSITION..
--- NOTE | 2019-04-01 08:09 | HMH.ACPN2 ---
Internal Medicine - PN: Subj *Date: 04/01/19 *Time: 08:09 Interval history: Patient seemed to sleep well overnight. This morning has no complaints. Has some coughing. Exam Vital signs and Labs for Last 24 Hours: Temp Pulse Resp BP Pulse Ox 97.8 F 87 18 103/62 L 94 L 04/01/19 04:00 04/01/19 06:35 04/01/19 04:00 04/01/19 04:00 04/01/19 04:00 Laboratory Results - last 24 hr 03/31/19 13:20: WBC 7.6, RBC 4.08 L, Hgb 12.3 L, Hct 39.0 L, MCV 95.7 H, MCH 30.3, MCHC 31.6 L, RDW 14.2, Plt Count 193, MPV 6.9 L, Neut % (Auto) 59.7, Lymph % (Auto) 28.9, [place] % (Auto) 8.0, Eos % (Auto) 3.0, Baso % (Auto) 0.5, Neut # (Auto) 4.5, Lymph # (Auto) 2.2, [place] # (Auto) 0.6, Eos # (Auto) 0.2, Baso # (Auto) 0.0 03/31/19 13:20: Sodium 141, Potassium 5.0, Chloride 107, Carbon Dioxide 29, Anion Gap 10.0, BUN 37 H, Creatinine 1.55 H, Estimated Creat Clear 47, Estimated GFR 43 L, Est GFR ( Amer) 52 L, Glucose 54 L, Calcium 8.3 L, Troponin I < 0.02 03/31/19 13:20: B-Natriuretic Peptide 194 H 03/31/19 14:34: PT 24.8 H, INR 2.49 H 03/31/19 16:06: POC Glucose 166 H 03/31/19 16:11: Troponin I < 0.02 03/31/19 17:27: POC Glucose 301 H* 03/31/19 17:49: Troponin I < 0.02 03/31/19 21:14: POC Glucose 365 H* 04/01/19 05:46: POC Glucose 288 H 04/01/19 06:47: WBC 7.5, RBC 4.04 L, Hgb 12.1 L, Hct 39.7 L, MCV 98.2 H, MCH 30.0, MCHC 30.5 L, RDW 14.2, Plt Count 174, MPV 7.2 L, Neut % (Auto) 85.3 H, Lymph % (Auto) 10.6, [place] % (Auto) 3.5, Eos % (Auto) 0.5, Baso % (Auto) 0.1, Neut # (Auto) 6.4, Lymph # (Auto) 0.8, [place] # (Auto) 0.3, Eos # (Auto) 0.0, Baso # (Auto) 0.0 04/01/19 06:47: Sodium 139, Potassium 5.2 H, Chloride 106, Carbon Dioxide 27, Anion Gap 11.2, BUN 40 H, Creatinine 1.68 H, Estimated Creat Clear 43, Estimated GFR 39 L, Est GFR ( Amer) 48 L, Glucose 323 H D, Calcium 8.2 L, Total Bilirubin 0.3, AST 7 L, ALT 11 L, Alkaline Phosphatase 105, Total Protein 7.1, Albumin 2.8 L, Globulin 4.3 H, Albumin/Globulin Ratio 0.7 L I & O for Last 24 hours: Intake & Output 03/29/19 03/30/19 03/31/19 04/01/19 11:59 11:59 11:59 11:59 Intake Total 350 / 350 Balance 350 / 350 Weight 195 lb 4 oz Narrative: Patient is pleasant, disoriented as his baseline. Follows commands well. Lots of loose rhonchi in his chest. Some crackles in the left base. Well-hydrated. Oropharynx moist but clear. Heart rate irregular. Edema is unchanged. Assessment and Plan (1) Community acquired pneumonia Current visit: No Status: Acute Category: Medical Code(s): J18.9 - Pneumonia, unspecified organism (2) Diabetes Current visit: No Status: Acute Qualifiers: Diabetes mellitus type: type 2 Diabetes mellitus mcfp insulin use: with long term acute care registered nurse use Diabetes mellitus complication status: with unspecified complications Qualified Code(s): E11.8 - Type 2 diabetes mellitus with unspecified complications; Z79.4 - retirement (current) use of insulin Category: Medical Code(s): E11.9 - Type 2 diabetes mellitus without complications (3) Parkinson disease Current visit: No Status: Acute Category: Medical Code(s): G20 - Parkinson's disease (4) Dementia with behavioral disturbance Current visit: No Status: Chronic Category: Medical Code(s): F03.91 - Unspecified dementia with behavioral disturbance (5) Systolic CHF with reduced left ventricular function, NYHA class 3 Current visit: No Status: Chronic Category: Medical Code(s): I50.20 - Unspecified systolic (congestive) heart failure (6) Stasis dermatitis of both legs Current visit: Yes Status: Acute Category: Medical Code(s): I87.2 - Venous insufficiency (chronic) (peripheral) - Assessment and plan all Dx Assessment and Plan for all problems:: Overall patient seems to be improving. PT/OT for home safety evaluation. Continue current antibiotic therapy. Check labs tomorrow, possible discharge tomorrow.
[2019-04-01 08:23] LABS: Lymphocytes % 12 % (10-50); Monocytes % 3 % (2-9); Neutrophils % 81 % (42-76); Platelet Estimate Normal; Total Cells Counted 100
--- NOTE | 2019-04-01 09:19 | HMH.PHAINT ---
MEDICATION LIST RECONCILED BASED ON RX BOTTLES FROM HOME
--- NOTE | 2019-04-01 11:05 | HMH.PTEV ---
Physical Therapy Evaluation Rehab PT IP Evaluation Start: 04/01/19 08:10 Freq: ONCE Status: Active Protocol: Document 04/01/19 10:59 JOANN (Rec: 04/01/19 11:05 JOANN [id number]) Subjective/History History History Pt is an 83 y/o male admitted to [facility] for pneumonia Subjective Subjective Pt reports no complaints A&O x P&P Rehab PT IP Eval Objective Appearance Patient Behavior Appropriate,Cooperative Patient Orientation Person,Place,Patient Baseline Difficulty following instructions none Speech Pattern Clear,Coherent,Patient Baseline Ambulation Patient Able to Ambulate Yes Ambulation Observation IP General Gait Pattern Observation Ataxic Gait,Shuffling Step Ambulation Distance (feet) 25 Ambulation Assistive Device Rolling Walker Balance Ability to Arise Able, uses arms to help Sitting Balance Steady, safe Standing Balance Steady, wide stance Dynamic Sitting Balance Ability Good Dynamic Standing Balance Ability Poor Transfers Bed Transfer Ability Supervision/Stand by Chair Transfer Ability Supervision/Stand by Sit to Stand Bed Transfer Ability Supervision/Stand by Sit to Stand Chair Transfer Ability Supervision/Stand by ROM All Extremities PT ROM Status WFL MMT All Extremities PT MMT WFL Rehab PT IP prob,goals,plan Problems Date of Evaluation: 04/01/19 PT IP Problems Gait,Balance,Self care,Safety Rehab Potential Rehab Potential Fair Equipment Needs Assistive Devices Rolling / Wheeled Walker Plan PT Intervention Plan Transfers,Gait,Balance,Self care,Safety,Therapeutic Exercise PT Plan Frequency BID Duration LOS Discharge Goals Bed Transfer Ability Supervision/Stand by Sit to Stand Chair Transfer Ability Supervision/Stand by Ambulation Assistive Device Rolling Walker Ambulation Distance (feet) 50 Discharge Plan PT Discharge Plan pt to return home w/ spouse and HHPT/NSG G -code Required Yes Eval Complexity Eval Charge Codes 74433 - Low Complexity G Codes PT Current Status Mobility PT Current Status Modifier CJ-At least 20% but less than 40% impaired, limited or restricted PT Goal Status Mobility PT Goal Status Modifer CJ-At least 20% but less than 40% impaired, limited or
[2019-04-01 11:16] LABS: POC Glucose,Bedside 358 (70-110)
--- NOTE | 2019-04-01 13:47 | HMH.OTEV ---
OT Inpatient Evaluation Rehab OT IP Evaluation Start: 04/01/19 08:10 Freq: ONCE Status: Complete Protocol: Document 04/01/19 13:39 [facility] (Rec: 04/01/19 13:45 [facility] [id number]) Rehab OT IP Assessment Subjective History Pt oriented to self upon arrival. Pt's present during therapy evaluation. Pt 's reports he lived at home with her prior to being hospitalized. also explained he required assistance with all ADL's and was dependent on her to complete all IADL's. Subjective I am ready to lay down. Objective Upper Extremity Gross ROM Min Limitation <25% Shoulder ROM Limitations Muscle Weakness Bed Mobility bed mobility-scooting,bed mobility - supine/sit,bed mobility - rolling Assist Level Minimal x 1 (25% assist) Transfer Training Sit/Stand Transfer,Sit/Stand/ Step Transfer,Sit/Stand/Pivot Transfer Assist Level Minimal x 1 (25% assist) Chair Transfer Ability Minimal x 1 (25% assist) Chair Transfer Technique Sit to/from Ambulatory Chair Transfer Assistive Devices Rolling Walker decrease in endurance No Rehab OT IP prob,goals,plan Problems Date of Evaluation: 04/01/19 OT IP Problems Bed Mobility,Transfers,Gait, Balance,Self care,Safety Rehab Potential Rehab Potential Good Equipment Needs Assistive Devices Rolling / Wheeled Walker Plan OT intervention Plan Bed Mobility,Transfers,Gait, Balance,Self care,Safety, Therapeutic Exercise OT Plan Frequency Daily Duration LOS Discharge Goals Bed Mobility Ability Assistance x1 Sit to Stand Chair Transfer Ability Contact Guard/Hand Hold Chair Transfer Ability Contact Guard/Hand Hold Chair Transfer Technique Sit to/from Ambulatory Chair Transfer Assistive Devices Rolling Walker Feeding Ability Assist with Tray Set Up Lower Body Dressing Ability Assistance X1 Upper Body Dressing Ability Standby Assistance Bathing Ability Assistance x1 Performing Toilet Hygiene Ability Assistance X1 Overall Commode/Toilet Transfer Ability Assistance x1 Commode/Toilet Transfer Technique Sit to/from Ambulatory decrease in endurance Yes Discharge Plan OT Discharge Plan
--- NOTE | 2019-04-01 15:42 | PC.NURSE ---
COURTESY ROUND; ICE WATER WAS GIVEN & TRASH WAS TAKEN OUT
[2019-04-01 17:23] LABS: POC Glucose,Bedside 476 (70-110)
--- NOTE | 2019-04-01 18:46 | PC.NURSE ---
PATIENT RESTING IN BED, WITH FAMILY AT BEDSIDE, PATIENT HAS HAD AN UNEVENTFUL DAY, FINGER STICK WAS 476 AT 1630 , NOTIFIED NO NEW ORDERS. VSS, NO DISTRESS NOTED WILL CONTINUE TO MONITOR.
--- NOTE | 2019-04-01 19:21 | PC.NURSE ---
report given to mikal
[2019-04-02] VITALS: BP 98/56; PULSE 85; RESP 16; TEMP 37.1; O2SAT 97
[2019-04-02 00:48] LABS: POC Glucose,Bedside 434 (70-110)
[2019-04-02 04:00] VITALS: BP 113/69; PULSE 77; RESP 16; TEMP 36.7; O2SAT 95
--- NOTE | 2019-04-02 05:03 | PC.NURSE ---
PT AWAKE MOST OF NIGHT. HAS BEEN PLEASANTLY CONFUSED, REQUIRING REORIENTATION.
[2019-04-02 05:40] VITALS: BMI 27.8
[2019-04-02 06:00] LABS: POC Glucose,Bedside 230 (70-110)
[2019-04-02 06:05] VITALS: PULSE 82; PULSE 84
[2019-04-02 07:45] LABS: Anion Gap 11.4 mEq/L (5-15); Blood Urea Nitrogen 47 mg/dL (7-18); Calcium 8.3 mg/dL (8.5-10.1); Carbon Dioxide 28 mmol/L (21.0-32.0); Chloride 105 mmol/L (98-107); Creatinine Clearance Estimated 43 mL/min (50-200); Creatinine,Serum 1.69 mg/dL (0.70-1.30); Estimated Glomerular Filt Rate 39 ml/min (>60); GFR (African American) 47 ML/MIN (>60); Glucose 315 mg/dL (74-106); Potassium 5.4 mmoL/L (3.5-5.1); Sodium 139 mmol/L (136-145)
[2019-04-02 07:50] LABS: Hematocrit 38.7 % (42.0-52.0); Hemoglobin 12.1 g/dL (14.1-18.0); Lymphocytes # 1.2 K/mm3 (0.7-4.5); Lymphocytes % 10.2 % (10-50); Mean Corpuscular HGB Conc 31.3 g/dL (31.8-35.4); Mean Corpuscular Hemoglobin 30.2 pg (27.0-31.2); Mean Corpuscular Volume 96.5 fl (80-94); Mean Platelet Volume 7.3 fl (7.4-10.4); Monocytes # 0.4 K/mm3 (0.1-1.0); Monocytes % 3.1 % (1.7-9.3); Neutrophils # 9.8 K/mm3 (1.8-7.8); Neutrophils % 86.8 % (37.0-80.0); Platelet Count 179 K/mm3 (142-424); Red Blood Count 4.01 M/mm3 (4.60-6.20); Red Cell Distribution Width 14.5 % (11.5-17.5); White Blood Count 11.4 K/mm3 (4.8-10.8)
[2019-04-02 07:53] LABS: MANUAL DIFFERENTIAL MANUAL DIFFERENTIAL (MANUAL DIFF)
[2019-04-02 08:00] VITALS: BP 111/58; PULSE 95; RESP 18; TEMP 36.7; O2SAT 96
--- NOTE | 2019-04-02 09:27 | HMH.DCSUM ---
General - General Admission date:: 03/31/19 Discharge date: 04/02/19 HPI HPI: 83-year-old long-term, dear patient of my practice who over the past several months has had a precipitous decline from his parkinsonism related dementia, with increasing problems with behavioral disturbances, behavioral insomnia and wandering behaviors, also afflicted with medical problems including significant CHF, both systolic and diastolic with ejection fraction in the mid 20% range, who was brought to the emergency department by his because of persistent cough and concern for failed outpatient therapy for pneumonia that was diagnosed on Saturday. states symptoms began last Saturday or with a cough and congestion. Tried to see primary care on Saturday however primary care was out sick. Went to the urgent treatment on Saturday where he was diagnosed with a pneumonia seen on x-ray in the left lower lobe. Started on Levaquin. Has not gotten better. States last night he coughs so much he did not sleep. Do not feel antibiotics are working at this time. Denies fevers, nausea vomiting, diarrhea. Complained of some chest tightness with coughing and trace lower extremity edema. In the ER patient had a repeat chest x-ray that showed persistent airspace disease, negative troponin. Added BNP to labs to assess for component of CHF in the setting of a normal white count and no fever. Patient currently not requiring oxygen. He was admitted to hospital for IV antibiotics and continued work-up. Hospital Course Hospital Course: Patient was admitted for IV antibiotics. CXR was obtained which showed COPD/bronchitis. He was given Zosyn infusions and solu-medrol with improvement in SOA. He is tolerating oral intake well. He is able to ambulate to the bathroom and appears steady on his feet. PT/OT were consulted who agree he is safe to go home with family. Discharge home with home health on Levaquin. See med rec for complete list. PT/INR and BMP on Saturday to confirm stability. Keep scheduled appointment with Dr. Gómez next week. Objective Vital signs: Temp Pulse Resp BP Pulse Ox 98.0 F 95 H 18 111/58 L 96 04/02/19 08:00 04/02/19 08:00 04/02/19 08:00 04/02/19 08:00 04/02/19 08:00 Narrative: Alert and oriented x2. Rate and rhythm regular. Lung sounds with loose rhonchi, improved. Abdomen soft and nontender. Results Labs on day of discharge: Labs from last 24 hours 04/02/19 04/02/19 04/02/19 06:49 06:49 05:42 WBC 11.4 H D RBC 4.01 L Hgb 12.1 L Hct 38.7 L MCV 96.5 H MCH 30.2 MCHC 31.3 L RDW 14.5 Plt Count 179 MPV 7.3 L Neut % (Auto) 86.8 H Lymph % (Auto) 10.2 [place] % (Auto) 3.1 Eos % (Auto) 0.0 L Baso % (Auto) 0.0 L Neut # (Auto) 9.8 H Lymph # (Auto) 1.2 [place] # (Auto) 0.4 Eos # (Auto) 0.0 Baso # (Auto) 0.0 Sodium 139 Potassium 5.4 H Chloride 105 Carbon Dioxide 28 Anion Gap 11.4 BUN 47 H Creatinine 1.69 H Estimated Creat Clear 43 Estimated GFR 39 L Est GFR ( Amer) 47 L Glucose 315 H POC Glucose 230 H Calcium 8.3 L 04/01/19 04/01/19 04/01/19 20:48 17:07 11:08 WBC RBC Hgb Hct MCV MCH MCHC RDW Plt Count MPV Neut % (Auto) Lymph % (Auto) [place] % (Auto) Eos % (Auto) Baso % (Auto) Neut # (Auto) Lymph # (Auto) [place] # (Auto) Eos # (Auto) Baso # (Auto) Sodium Potassium Chloride Carbon Dioxide Anion Gap BUN Creatinine Estimated Creat Clear Estimated GFR Est GFR ( Amer) Glucose POC Glucose 434 H* 476 H* 358 H* Calcium DS: Diagnosis - Discharge Diagnosis (1) Community acquired pneumonia Status: Acute (2) Diabetes Status: Acute (3) Parkinson disease Status: Acute (4) Dementia with behavioral disturbance Status: Chronic (5) Systoli
--- NOTE | 2019-04-02 09:30 | P.DS_ITS ---
General - General Admission date:: 03/31/19 Discharge date: 04/02/19 HPI HPI: 83-year-old long-term, dear patient of my practice who over the past several months has had a precipitous decline from his parkinsonism related dementia, with increasing problems with behavioral disturbances, behavioral insomnia and wandering behaviors, also afflicted with medical problems including significant CHF, both systolic and diastolic with ejection fraction in the mid 20% range, who was brought to the emergency department by his because of persistent cough and concern for failed outpatient therapy for pneumonia that was diagnosed on Saturday. states symptoms began last Saturday or with a cough and congestion. Tried to see primary care on Saturday however primary care was out sick. Went to the urgent treatment on Saturday where he was diagnosed with a pneumonia seen on x-ray in the left lower lobe. Started on Levaquin. Has not gotten better. States last night he coughs so much he did not sleep. Do not feel antibiotics are working at this time. Denies fevers, nausea vomiting, diarrhea. Complained of some chest tightness with coughing and trace lower extremity edema. In the ER patient had a repeat chest x-ray that showed persistent airspace disease, negative troponin. Added BNP to labs to assess for component of CHF in the setting of a normal white count and no fever. Patient currently not requiring oxygen. He was admitted to hospital for IV antibiotics and continued work-up. Hospital Course Hospital Course: Patient was admitted for IV antibiotics. CXR was obtained which showed COPD/bronchitis. He was given Zosyn infusions and solu-medrol with improvement in SOA. He is tolerating oral intake well. He is able to ambulate to the bathroom and appears steady on his feet. PT/OT were consulted who agree he is safe to go home with family. Discharge home with home health on Levaquin. See med rec for complete list. PT/INR and BMP on Saturday to confirm stability. Keep scheduled appointment with Dr. Gómez next week. Objective Vital signs: Temp Pulse Resp BP Pulse Ox 98.0 F 95 H 18 111/58 L 96 04/02/19 08:00 04/02/19 08:00 04/02/19 08:00 04/02/19 08:00 04/02/19 08:00 Narrative: Alert and oriented x2. Rate and rhythm regular. Lung sounds with loose rhonchi, improved. Abdomen soft and nontender. Results Labs on day of discharge: Labs from last 24 hours 04/02/19 04/02/19 04/02/19 06:49 06:49 05:42 WBC 11.4 H D RBC 4.01 L Hgb 12.1 L Hct 38.7 L MCV 96.5 H MCH 30.2 MCHC 31.3 L RDW 14.5 Plt Count 179 MPV 7.3 L Neut % (Auto) 86.8 H Lymph % (Auto) 10.2 [place] % (Auto) 3.1 Eos % (Auto) 0.0 L Baso % (Auto) 0.0 L Neut # (Auto) 9.8 H Lymph # (Auto) 1.2 [place] # (Auto) 0.4 Eos # (Auto) 0.0 Baso # (Auto) 0.0 Sodium 139 Potassium 5.4 H Chloride 105 Carbon Dioxide 28 Anion Gap 11.4 BUN 47 H Creatinine 1.69 H Estimated Creat Clear 43 Estimated GFR 39 L Est GFR ( Amer) 47 L Glucose 315 H POC Glucose 230 H Calcium 8.3 L 04/01/19 04/01/19
--- NOTE | 2019-04-02 09:36 | SW/DCPLANNER ---
RECEIVED REFERRAL FOR THIIS PATIENT FOR HOME HEALTH SERVICES..PT/OT PATIENTS STATED THEY HAVE USED [facility] IN THE PAST AND WISHES TO USE THEM AGAIN..I HAVE SENT REFERRAL FOR SERVICES TO START IN THE AM.. PATIENT WILL DISCHARGE LATER IN THIS MORNING...
--- NOTE | 2019-04-02 09:41 | HMH.PHAINT ---
DISCHARGE MEDICATION COUNSELING COMPLETED. DISCUSSED NEW LEVAQUIN PRESCRIPTION WITH IN ROOM. SHE VERBALIZED UNDERSTANDING. ALSO REQUESTED COUMADIN COUNSELING TO BE REPEATED TO HER, PT RECEIVED COUNSELING YESTERDAY, BUT HE HAS EARLY DEMENTIA, AND PHARMACY WAS UNAWARE. PHARMACIST CAME BACK OVER AND DISCUSSED COUMADIN AGAIN WITH TODAY.
[2019-04-02 10:30] LABS: Lymphocytes % 10 % (10-50); Monocytes % 4 % (2-9); Neutrophils % 85 % (42-76); Total Cells Counted 100
[2019-04-02 10:31] LABS: Hypochromasia 1+; Platelet Estimate Normal
[2019-04-02 11:34] LABS: POC Glucose,Bedside 426 (70-110)
== END 2019-04-02 12:45 | disposition home health service (06) ==
LOC: ER 15:02 → 2ND 15:12
PROVIDERS: Admitting Provider Internal Medicine Adolescent Medicine; Emergency Provider Emergency Medicine; Visit Provider Internal Medicine Adolescent Medicine
DX: J18.9 Pneumonia, unspecified organism (principal); E11.9 Type 2 diabetes mellitus without complications; G31.83 Neurocognitive disorder with Lewy bodies; F02.81 Dementia in other diseases classified elsewhere, unspecified severity, with behavioral disturbance; I50.20 Unspecified systolic (congestive) heart failure; I87.2 Venous insufficiency (chronic) (peripheral); Z91.83 Wandering in diseases classified elsewhere; G47.09 Other insomnia; J44.1 Chronic obstructive pulmonary disease with (acute) exacerbation; R06.02 Shortness of breath; R05 Cough; R07.9 Chest pain, unspecified; Z79.01 Long term (current) use of anticoagulants; Z79.4 Long term (current) use of insulin; Z79.82 Long term (current) use of aspirin; Z79.51 Long term (current) use of inhaled steroids; Z79.899 Other long term (current) drug therapy; Z88.6 Allergy status to analgesic agent; Z88.8 Allergy status to other drugs, medicaments and biological substances
CPT/HCPCS: 36415; 71046; 80048; 80053; 82962; 83880; 84484; 85007; 85025; 85610; 93005; 94640; 94761; 96365; 96367; 96375; 97116; 97161; 97165; 97535; 99284; G0378; J0456; J2543

== ENCOUNTER 2019-07-22 14:51 | Observation (INO) ==
[2019-07-22 15:36] LABS: Basophils % 0.7 % (0.1-2.0); Eosinophils # 0.4 K/mm3 (0.0-0.4); Eosinophils % 6.1 % (0.1-12.0); Hematocrit 39.2 % (42.0-52.0); Hemoglobin 12.2 g/dL (14.1-18.0); Lymphocytes # 1.5 K/mm3 (0.7-4.5); Lymphocytes % 25.7 % (10-50); Mean Corpuscular HGB Conc 31.1 g/dL (31.8-35.4); Mean Corpuscular Volume 96.7 fl (80-94); Mean Platelet Volume 7.1 fl (7.4-10.4); Monocytes # 0.6 K/mm3 (0.1-1.0); Monocytes % 9.7 % (1.7-9.3); Neutrophils # 3.4 K/mm3 (1.8-7.8); Neutrophils % 57.7 % (37.0-80.0); Platelet Count 189 K/mm3 (142-424); Red Blood Count 4.06 M/mm3 (4.60-6.20); Red Cell Distribution Width 15.6 % (11.5-17.5)
[2019-07-22 15:48] LABS: Albumin/Globulin Ratio 0.8 (1.1-1.8); Anion Gap 13.3 mEq/L (5-15); Bilirubin,Total 0.2 mg/dL (0.2-1.0); Calcium 8.6 mg/dL (8.5-10.1)
--- NOTE | 2019-07-22 18:09 | History & Physical Report ---
*Admission Date: 07/22/19 *Chief complaint: Cough/weakness *History of present illness: 84-year-old white male, well-known to my practice with dementia, parkinsonism, occasional hallucinatory activity, who also has stage III CHF with baseline ejection fraction 25%, who was brought to the office by his because of cough, weakness and some increased confusion. In the office he was pleasant, and oriented x2, but was afflicted with some shortness of air and crackles in his right lower lung field. Given his tenuous status and need for monitoring he was admitted to hospital for IV antibiotics and further diagnostic testing. [facility] History I have reviewed the patient's past medical history: Yes Medical History: Reports:: Congestive Heart Failure, Coronary Artery Disease, Diabetes Mellitus Type 2, Hyperlipidemia, Hypertension, Internal Pacemaker, Myocardial Infarction Denies:: Cancer, Diabetes Mellitus Type 1, MRSA *Have you ever received a pneumonia vaccine?: Yes *Have you received a flu vaccine this season?: Yes Other Medical History: Reports: Arthritis, Cataracts Comment:: Parkinsonism Other Surgeries: Yes: Angiogram, Appendectomy, CABG, Cancer Surgery (skin), Cardiac Catheterization, Cholecystectomy, Colonoscopy, Coronary Stent, EGD, Hernia Repair, Open Heart Surgery, Pacemaker, Skin Cancer Excision Amputation: No Fractures: No - *Social History Educational Level: Completed Grade School Smoking Status: Never smoker Tobacco Type: cigarettes Alcohol Intake: never Substance Use Type: denies use *Occupational Status:: disabled Housing: house Household Members: spouse *Travel in the last 8 weeks: None Family Hx:: Cancer Review of Systems - Review of Systems Review of systems:: pertinent systems reviewed and negative unless documented below Patient complains of cough, minimal shortness of air. Denies swelling over baseline. Denies pains. Some confusion and fatigue as noted Meds Home Medications Medication Instructions Recorded Confirmed Type Carbidopa/Levodopa 1 tab PO TID 02/21/18 07/22/19 History [Carbidopa/Levodopa 25/100mg Tablet] Famotidine [Pepcid 20mg Tablet] 20 mg PO BID 02/21/18 07/22/19 History Furosemide [Furosemide 20mg Tab] 20 mg PO BID 02/21/18 07/22/19 History Insulin Lispro Protamin/Lispro 12 unit SQ BID 02/21/18 07/22/19 History [Humalog Mix 75/25 100 Units/mL 10mL Vial] Atorvastatin Calcium [Atorvastatin 40 mg PO HS 09/11/18 07/22/19 History 40mg Tab] Escitalopram Oxalate 10 mg PO DAILY 11/07/18 07/22/19 History Aspirin [Aspirin 81mg chewable 81 mg PO DAILY 01/19/19 07/22/19 History tab] carBAMazepine [carBAMazepine 200mg 600 mg PO HS 01/19/19 07/22/19 History Tablet] quetiapine 200 mg tablet 200 mg PO HS tab 03/24/19 07/22/19 History warfarin 5 mg tablet 5 mg PO SUTUTH tab 03/24/19 07/22/19 History Warfarin Sodium 9 mg PO MOWEFRSA 03/31/19 07/22/19 History Sacubitril/Valsartan [Entresto 24 1 tab PO BID 04/01/19 07/22/19 History mg-26 mg Tablet] Sennosides/Docusate Sodium [Stool 2 tab PO HS 04/01/19 07/22/19 History Softener-Laxative Tablet] Memantine HCl/Donepezil HCl 1 each PO DAILY 06/27/19 07/22/19 History [Namzaric 28 mg-10 mg Capsule] Quetiapine Fumarate 50 mg PO 1200 07/22/19 07/22/19 History Allergies Allergy/AdvReac Type Severity Reaction Status Date / Time cefazolin [CEFAZOLIN] Allergy Unknown Verified 03/31/19 13:11 hydrocodone [HYDROCODONE] Allergy Unknown Verified 03/31/19 13:11 lidocaine [LIDOCAINE] Allergy Unknown Verified 03/31/19 13:11 Exam Vital signs and Labs for Last 24 Hours: Temp Pulse Resp BP Pulse Ox 97.9 F 82 18 86/55 L 96 07/22/19 14:58 07/22/19 14:58 07/22/19 14:58 07/22/19 14:58 07/22/19 15:10 Laboratory Results - last 24 hr 07/22/19 15:05: WBC 6.0, RBC 4.06 L, Hgb 12.2 L, Hct 39.2 L, MCV 96.7 H, MCH 30.0, MCHC 31.1 L, RDW 15.6, Plt Count 189, MPV 7.1 L, Neut % (Auto) 57.7, Lymph % (Auto) 25.7, [place] % (Auto) 9.7 H, Eos % (Auto) 6.1, Baso % (Auto) 0.7, Neut # (Auto) 3.4, Lymph # (Auto) 1.5, [place] # (Auto) 0.6, Eos # (Auto) 0.4, Baso # (Auto) 0.0 07/22/19 15:05: Sodium 142, Potassium 5.3 H, Chloride 106, Carbon Dioxide 28, Anion Gap 13.3, BUN 38 H, Creatinine 1.67 H, Estimated Creat Clear 43, Estimated GFR 40 L, Est GFR ( Amer) 48 L, Glucose 111 H, Calcium 8.6, Total Bilirubin 0.2, AST 13 L, ALT 7 L, Alkaline Phosphatase 99, Total Protein 7.0, Albumin 3.0 L, Globulin 4.0 H, Albumin/Globulin Ratio 0.8 L 07/22/19 15:05: Lactate 1.1 I & O for Last 24 hours: Intake & Output 07/20/19 07/21/19 07/22/19 07/23/19 11:59 11:59 11:59 11:59 Intake Total Balance Weight 196 lb 9 oz Narrative: Patient is pleasant, appears pale. Skin turgor is poor. Oropharynx slightly dry, abdomen soft. Heart rate irregular. Crackles in right lower lung field. No edema, able to move extremities well but is globally weak. Disoriented to time. Assessment and Plan (1) Chronic systolic heart failure Current visit: Yes Status: Acute Category: Medical Code(s): I50.22 - Chronic systolic (congestive) heart failure Continue current medications. Except for holding Lasix given his slightly dry status (2) Community acquired pneumonia Current visit: No Status: Acute Category: Medical Code(s): J18.9 - Pneumonia, unspecified organism IV levofloxacin. Check chest x-ray, labs and cultures (3) Parkinson's disease dementia Current visit: No Status: Chronic Category: Medical Code(s): G20 - Parkinson's disease; F02.80 - Dementia in other diseases classified elsewhere without behavioral disturbance Continue current therapy. (4) Systolic CHF with reduced left ventricular function, NYHA class 3 Current visit: No Status: Chronic Category: Medical Code(s): I50.20 - Unspecified systolic (congestive) heart failure
[2019-07-23 06:48] LABS: Basophils % 0.3 % (0.1-2.0); Eosinophils # 0.4 K/mm3 (0.0-0.4); Eosinophils % 7.5 % (0.1-12.0); Hematocrit 38.9 % (42.0-52.0); Hemoglobin 12.2 g/dL (14.1-18.0); Lymphocytes # 1.6 K/mm3 (0.7-4.5); Lymphocytes % 32.9 % (10-50); Mean Corpuscular HGB Conc 31.5 g/dL (31.8-35.4); Mean Corpuscular Volume 96.1 fl (80-94); Mean Platelet Volume 7.6 fl (7.4-10.4); Monocytes # 0.5 K/mm3 (0.1-1.0); Monocytes % 10.8 % (1.7-9.3); Neutrophils # 2.3 K/mm3 (1.8-7.8); Neutrophils % 48.4 % (37.0-80.0); Platelet Count 123 K/mm3 (142-424); Red Blood Count 4.04 M/mm3 (4.60-6.20); Red Cell Distribution Width 15.6 % (11.5-17.5); White Blood Count 4.8 K/mm3 (4.8-10.8)
[2019-07-23 07:11] LABS: Anion Gap 11.8 mEq/L (5-15); Calcium 8.3 mg/dL (8.5-10.1)
--- NOTE | 2019-07-23 07:36 | Pharmacy Consult Notes ---
[facility] VTE Monitoring - Patient Demographics Admission date: 07/22/19 Report Date: 07/23/19 Time: 07:36 Allergies/Adverse Reactions: Patient Allergies cefazolin [CEFAZOLIN] Allergy (Unknown, Verified 03/31/19 13:11) hydrocodone [HYDROCODONE] Allergy (Unknown, Verified 03/31/19 13:11) lidocaine [LIDOCAINE] Allergy (Unknown, Verified 03/31/19 13:11) Height: 1.75 m Weight: 89.613 kg Patient Problems: Current Active Problems Chronic systolic heart failure (Acute) - VTE Risk Labs: VTE Related Lab Results Hgb 12.2 g/dL (14.1-18.0) L 07/23/19 05:50 Hct 38.9 % (42.0-52.0) L 07/23/19 05:50 Plt Count 123 K/mm3 (142-424) L D 07/23/19 05:50 BUN 36 mg/dL (7-18) H 07/23/19 05:50 Creatinine 1.47 mg/dL (0.70-1.30) H 07/23/19 05:50 Estimated Creat Clear 49 mL/min (50-200) 07/23/19 05:50 VTE Score: 6 VTE Risk Level: Moderate Risk - Prophylaxis VTE Prophylaxis Ordered?: Yes Types of VTE Prophylaxis: TEDS Knee High, Pharmacological Location of Applied Device: Bilateral Lower Extremeties Pharmacologic Type: Warfarin - VTE Diagnosis Confirmed Treatment or plan recommended: Continue Current Treatment
--- NOTE | 2019-07-23 07:49 | Progress Note ---
Internal Medicine - PN: Subj *Date: 07/23/19 *Time: 08:20 Interval history: Patient states she is doing better this morning. Tolerating p.o. intake. Less short of breath. Denies any chest pain, fever, headache. No supplemental oxygen at this time. Tolerating Levaquin without issue. Hemodynamically stable on interview this morning. Alert and oriented to person place and time. Denies any current confusion Exam Vital signs and Labs for Last 24 Hours: Temp Pulse Resp BP Pulse Ox 98.1 F 52 L 18 144/58 H 98 07/23/19 07:28 07/23/19 07:28 07/23/19 07:28 07/23/19 07:28 07/23/19 07:28 Laboratory Results - last 24 hr 07/22/19 15:05: WBC 6.0, RBC 4.06 L, Hgb 12.2 L, Hct 39.2 L, MCV 96.7 H, MCH 30. 0, MCHC 31.1 L, RDW 15.6, Plt Count 189, MPV 7.1 L, Neut % (Auto) 57.7, Lymph % (Auto) 25.7, [place] % (Auto) 9.7 H, Eos % (Auto) 6.1, Baso % (Auto) 0.7, Neut # (Auto) 3.4, Lymph # (Auto) 1.5, [place] # (Auto) 0.6, Eos # (Auto) 0.4, Baso # (Auto) 0.0 07/22/19 15:05: Sodium 142, Potassium 5.3 H, Chloride 106, Carbon Dioxide 28, Anion Gap 13.3, BUN 38 H, Creatinine 1.67 H, Estimated Creat Clear 43, Estimated GFR 40 L, Est GFR ( Amer) 48 L, Glucose 111 H, Calcium 8.6, Total Bilirubin 0.2, AST 13 L, ALT 7 L, Alkaline Phosphatase 99, Total Protein 7.0, Albumin 3.0 L, Globulin 4.0 H, Albumin/Globulin Ratio 0.8 L 07/22/19 15:05: Lactate 1.1 07/23/19 05:50: WBC 4.8, RBC 4.04 L, Hgb 12.2 L, Hct 38.9 L, MCV 96.1 H, MCH 30.2, MCHC 31.5 L, RDW 15.6, Plt Count 123 L D, MPV 7.6, Neut % (Auto) 48.4, Lymph % (Auto) 32.9, [place] % (Auto) 10.8 H, Eos % (Auto) 7.5, Baso % (Auto) 0.3, Neut # (Auto) 2.3, Lymph # (Auto) 1.6, [place] # (Auto) 0.5, Eos # (Auto) 0.4, Baso # (Auto) 0.0 07/23/19 05:50: Sodium 141, Potassium 5.8 H, Chloride 108 H, Carbon Dioxide 27, Anion Gap 11.8, BUN 36 H, Creatinine 1.47 H, Estimated Creat Clear 49, Estimated GFR 46 L, Est GFR ( Amer) 55 L, Glucose 136 H D, Calcium 8.3 L I & O for Last 24 hours: Intake & Output 07/20/19 07/21/19 07/22/19 07/23/19 23:59 23:59 23:59 23:59 Intake Total 260 / 260 1096 / 1096 Balance 260 / 260 1096 / 1096 Weight 89.159 kg 89.613 kg Narrative: Patient is pleasant, alert and oriented x3. Skin turgor is normal, moist mucous membranes Heart rate regular, no murmur appreciated Clear to auscultation bilaterally in anterior lung croft with good air movement, crackles in bilateral bases and posterior lung croft No edema, able to move extremities well but is globally weak. Assessment and Plan (1) Chronic systolic heart failure Current visit: Yes Status: Acute Category: Medical Code(s): I50.22 - Chronic systolic (congestive) heart failure (2) Community acquired pneumonia Current visit: No Status: Acute Category: Medical Code(s): J18.9 - Pneumonia, unspecified organism (3) Parkinson's disease dementia Current visit: No Status: Chronic Category: Medical Code(s): G20 - Parkinson's disease; F02.80 - Dementia in other diseases classified elsewhere without behavioral disturbance (4) Systolic CHF with reduced left ventricular function, NYHA class 3 Current visit: No Status: Chronic Category: Medical Code(s): I50.20 - Unsp ecified systolic (congestive) heart failure - Assessment and plan all Dx Assessment and Plan for all problems:: Labs remained stable this morning. Suspect crackles more related to CHF then pneumonia however seems to be improving with antibiotics and fluids. Will diuresis x1 today given crackles bilaterally. Plan to transition to oral antibiotics at time of discharge. Will monitor patient through the morning and early afternoon. If continues to remain stable without oxygen, responds well to diuresis, transition oral antibiotics to complete 5-day course of Levaquin and follow-up as an outpatient.
[2019-07-23 08:35] LABS: Prothrombin Time 20.1 seconds (9.4-11.8)
--- NOTE | 2019-07-23 13:42 | Discharge Summary ---
General - General Admission date:: 07/22/19 Discharge date: 07/23/19 HPI HPI: 84-year-old white male, well-known to my practice with dementia, parkinsonism, occasional hallucinatory activity, who also has stage III CHF with baseline ejection fraction 25%, who was brought to the office by his because of cough, weakness and some increased confusion. In the office he was pleasant, and oriented x2, but was afflicted with some shortness of air and crackles in his right lower lung field. Given his tenuous status and need for monitoring he was admitted to hospital for IV antibiotics and further diagnostic testing. Hospital Course Hospital Course: Patient admitted for CHF exacerbation/community acquired pneumonia/debility. Did well with IV fluids and initiation of antibiotics. Required no oxygen du ring admission. Worked with physical therapy and patient was deemed to be at baseline function with use of a walker and ambulating the length of the hallway and back to his room without significant difficulty. Patient feeling better, discussed situation with patient's . She was comfortable taking him home with plan to complete oral antibiotics at home. Plan to follow-up in the coming week in the outpatient setting to monitor for improvement. Labs remained stable. Suspect crackles more related to CHF then pneumonia however seems to be improving with antibiotics and fluids. Diuresed x1 on day of discharge with good urine output. Transition oral antibiotics to complete 5- day course of Levaquin and follow-up as an outpatient. No requirement during hospitalization for oxygen. Discharged home in medically stable condition. Objective Vital signs: Temp Pulse Resp BP Pulse Ox 98.0 F 77 18 112/69 95 07/23/19 11:59 07/23/19 11:59 07/23/19 11:59 07/23/19 11:59 07/23/19 11:59 Narrative: See progress note for physical exam Results Labs on day of discharge: Labs from last 24 hours 07/23/19 07/23/19 07/23/19 08:21 05:50 05:50 WBC 4.8 RBC 4.04 L Hgb 12.2 L Hct 38.9 L MCV 96.1 H MCH 30.2 MCHC 31.5 L RDW 15.6 Plt Count 123 L D MPV 7.6 Neut % (Auto) 48.4 Lymph % (Auto) 32.9 [place] % (Auto) 10.8 H Eos % (Auto) 7.5 Baso % (Auto) 0.3 Neut # (Auto) 2.3 Lymph # (Auto) 1.6 [place] # (Auto) 0.5 Eos # (Auto) 0.4 Baso # (Auto) 0.0 PT 20.1 H INR 2.00 H Sodium 141 Potassium 5.8 H Chloride 108 H Carbon Dioxide 27 Anion Gap 11.8 BUN 36 H Creatinine 1.47 H Estimated Creat Clear 49 Estimated GFR 46 L Est GFR ( Amer) 55 L Glucose 136 H D Lactate Calcium 8.3 L Total Bilirubin AST ALT Alkaline Phosphatase Total Protein Albumin Globulin Albumin/Globulin Ratio 07/22/19 07/22/19 07/22/19 15:05 15:05 15:05 WBC 6.0 RBC 4.06 L Hgb 12.2 L Hct 39.2 L MCV 96.7 H MCH 30.0 MCHC 31.1 L RDW 15.6 Plt Count 189 MPV 7.1 L Neut % (Auto) 57.7 Lymph % (Auto) 25.7 [place] % (Auto) 9.7 H Eos % (Auto) 6.1 Baso % (Auto) 0.7 Neut # (Auto) 3.4 Lymph # (Auto) 1.5 [place] # (Auto) 0.6 Eos # (Auto) 0.4 Baso # (Auto) 0.0 PT INR Sodium 142 Potassium 5.3 H Chloride 106 Carbon Dioxide 28 Anion Gap 13.3 BUN 38 H Creatinine 1.67 H Estimated Creat Clear 43 Estimated GFR 40 L Est GFR ( Amer) 48 L Glucose 111 H Lactate 1.1 Calcium 8.6 Total Bilirubin 0.2 AST 13 L ALT 7 L Alkaline Phosphatase 99 Total Protein 7.0 Albumin 3.0 L Globulin 4.0 H Albumin/Globulin Ratio 0.8 L DS: Diagnosis - Discharge Diagnosis (1) Chronic systolic heart failure Status: Acute (2) Community acquired pneumonia Status: Acute (3) Parkinson's disease dementia Status: Chronic (4) Systolic CHF with reduced left ventricular function, NYHA class 3 Status: Chronic Discharge Plan - Patient Discharge Instructions ACTIVITY: Continue current activity DIET: continue same diet Patient Instructions: DI for Heart Failure, DI for Pneumonia -- Adult, Low- Sodium Diet, How to Keep Track of Your Weight When You Have Heart Failure, Coumadin Vitamin K/ Diet, Coumadin Therapy Booklet - Follow up Plan Follow up with: Erickson Mcfarland MD [Staff Physician] - Disposition: Home, Self-[facility]ci Medications: Home Medications Medication Instructions Recorded Confirmed Type Carbidopa/Levodopa 1 tab PO TID 02/21/18 07/22/19 History [Carbidopa/Levodopa 25/100mg Tablet] Famotidine [Pepcid 20mg Tablet] 20 mg PO BID 02/21/18 07/22/19 History Furosemide [Furosemide 20mg Tab] 20 mg PO BID 02/21/18 07/22/19 History Insulin Lispro Protamin/Lispro 12 unit SQ BID 02/21/18 07/22/19 History [Humalog Mix 75/25 100 Units/mL 10mL Vial] Atorvastatin Calcium [Atorvastatin 40 mg PO HS 09/11/18 07/22/19 History 40mg Tab] Escitalopram Oxalate 10 mg PO DAILY 11/07/18 07/22/19 History Aspirin [Aspirin 81mg chewable 81 mg PO DAILY 01/19/19 07/22/19 History tab] carBAMazepine [carBAMazepine 200mg 600 mg PO HS 01/19/19 07/22/19 History Tablet] quetiapine 200 mg tablet 200 mg PO HS tab 03/24/19 07/22/19 History warfarin 5 mg tablet 5 mg PO SUTUTH tab 03/24/19 07/22/19 History Warfarin Sodium 7.5 mg PO MOWEFRSA 03/31/19 07/23/19 History Sennosides/Docusate Sodium [Stool 2 tab PO HS 04/01/19 07/22/19 History Softener-Laxative Tablet] Memantine HCl/Donepezil HCl 1 each PO DAILY 06/27/19 07/22/19 History [Namzaric 28 mg-10 mg Capsule] Quetiapine Fumarate 50 mg PO 1200 07/22/19 07/22/19 History Sacubitril/Valsartan [Entresto 49 1 tab PO BID 07/23/19 07/23/19 History mg-51 mg Tablet] levoFLOXacin [Levaquin 750mg 750 mg PO DAILY #5 tab 07/23/19 Rx tablet] Prescriptions/Medication Reconciliation: New levoFLOXacin [Levaquin 750mg tablet] 750 mg PO DAILY #5 tab Continued quetiapine 200 mg tablet 200 mg PO HS tab warfarin 5 mg tablet 5 mg PO SUTUTH tab Insulin Lispro Protamin/Lispro [Humalog Mix 75/25 100 Units/mL 10mL Vial] 12 unit SQ BID Furosemide [Furosemide 20mg Tab] 20 mg PO BID Famotidine [Pepcid 20mg Tablet] 20 mg PO BID Carbidopa/Levodopa [Carbidopa/Levodopa 25/100mg Tablet] 1 tab PO TID Escitalopram Oxalate 10 mg PO DAILY carBAMazepine [carBAMazepine 200mg Tablet] 600 mg PO HS Aspirin [Aspirin 81mg chewable tab] 81 mg PO DAILY Memantine HCl/Donepezil HCl [Namzaric 28 mg-10 mg Capsule] 1 each PO DAILY Quetiapine Fumarate 50 mg PO 1200 Sacubitril/Valsartan [Entresto 49 mg-51 mg Tablet] 1 tab PO BID Atorvastatin Calcium [Atorvastatin 40mg Tab] 40 mg PO HS Warfarin Sodium 7.5 mg PO MOWEFRSA Sennosides/Docusate Sodium [Stool Softener-Laxative Tablet] 2 tab PO HS - Problem Reconciliation Problems Reviewed?: Yes
--- NOTE | 2019-07-23 18:13 | Electrocardiograph Report ---
APPROVED REPORT Exam: Resting ECG HR:71 bpm ECG Measurements Heart Rate 71 AXES TX 234 P 1 QRSd 204 QRS -1 QT 466 T150 QTc 506 <Conclusion> Sinus rhythm with marked sinus arrhythmia with 1st degree AV block Left bundle branch block Abnormal ECG Electronically signed by : Bigg Peralta, 07/23/2019 18:13:22
== END 2019-07-23 14:43 | disposition home or self-care (01) ==
LOC: 2ND → OBSVTOIN 14:51 → INTOOBSV 14:51
PROVIDERS: ADMIT Internal Medicine Adolescent Medicine; ATTEND Internal Medicine Adolescent Medicine
DX: Z79.82 Long term (current) use of aspirin; G20 Parkinson's disease; Z79.01 Long term (current) use of anticoagulants; J18.9 Pneumonia, unspecified organism; I50.22 Chronic systolic (congestive) heart failure; Z79.4 Long term (current) use of insulin; F02.80 Dementia in other diseases classified elsewhere, unspecified severity, without behavioral disturbance, psychotic disturbance, mood disturbance, and anxiety; Z88.1 Allergy status to other antibiotic agents; Z79.899 Other long term (current) drug therapy; Z88.6 Allergy status to analgesic agent
CPT/HCPCS: 36415; 71020; 71046; 80048; 80053; 83605; 85025; 85610; 87040; 93005; 97110; 97116; 97161; 97165; G0378; J1956